=== PATIENT | male | born 1955 | race Caucasian/White ===

== ENCOUNTER 2016-07-30 17:51 | Inpatient (IN) | payer BC, OTHER ==
[~2016-07-30] VITALS: Ht 177.8 cm; Wt 51.8 kg
[~2016-07-30 17:51] MED LIST: ALBU1AER9 INH; CARV6.252 PO; LOSA1TAB PO; MULT-506 PO; RIVA1TAB4 PO; SIMV40TA4 PO; SOTA80TA55 PO
[2016-07-30] MEDS ORDERED: ALBUT/IPRATROP 3MG/0.5MG NEB 3 ML VIAL INH STA ×2 (18:20→19:19)
[2016-07-30] MEDS ORDERED: ADVIN50/60 INH (18:33)
[2016-07-30] MEDS ORDERED: IPRASOL4 INH (18:33)
[2016-07-30] MEDS ORDERED: PRED10TA PO (18:33)
[2016-07-30] MEDS ORDERED: AZIT250T PO (18:33)
[2016-07-30] MEDS ORDERED: ACLI1AER3 PO (18:33)
[2016-07-30] MEDS ORDERED: MULT-506 PO (18:33)
[2016-07-30 18:40] LABS: BASO % 0.1 %; BASO ABS # 0.01 K/uL (0-0.2); COMPLETE YES; HEMATOCRIT 42.7 % (42-52); IG% 0.3 %; LYMPH % 3.5 %; LYMPH ABS # 0.68 K/uL (1.2-3.4); MEAN CORPUSCULAR HEMOGLOBIN 30.2 pg (25-34); MEAN CORPUSCULAR HGB CONC 30.2 g/dl (32-36); MONO % 3.9 %; NEUT % 92.2 %; PLATELET COUNT 270 K/uL (130-400); RED BLOOD COUNT 4.27 M/uL (4.7-6.1); WHITE BLOOD COUNT 19.45 K/uL (4.8-10.8)
[2016-07-30 18:47] LABS: BLOOD UREA NITROGEN 11 mg/dl (7-18); BUN/CREATININE RATIO 18.5 (10-20); CALCIUM 9.2 mg/dl (8.5-10.1); CHLORIDE 85 mmol/L (98-107); CREATININE 0.59 mg/dl (0.60-1.40); GLUCOSE 112 mg/dl (70-99); POTASSIUM 4.9 mmol/L (3.5-5.1); SODIUM 134 mmol/L (136-145)
[2016-07-30 18:50] LABS: INR 1.3 (0.9-1.1); PARTIAL THROMBOPLASTIN RATIO 1.2; PROTHROMBIN TIME (PATIENT) 13.9 SECONDS (9.0-12.0)
[2016-07-30 18:51] LABS: CKMB/CK RATIO 5.8 (0-3.0)
[2016-07-30 19:02] LABS: MAGNESIUM 2.2 mg/dl (1.8-2.4)
[2016-07-30] MEDS ORDERED: PIPERACILLIN/TAZOBACTAM 4.5 GM/100ML D5W IV STA (19:15)
--- NOTE | 2016-07-30 19:15 | DIAGNOSTIC IMAGING REPORT ---
CT HEAD WITHOUT CONTRAST (CT) CLINICAL HISTORY: Stroke COMPARISON STUDY: No previous studies for comparison. TECHNIQUE: Axial CT of the brain is performed from the vertex to the skull base. IV contrast was not administered for this examination. CT DOSE: 1074.96 mGy.cm FINDINGS: There is mild motion artifact. There is a 6 mm extra-axial calcification within the right anterior middle cranial fossa abutting the sphenoid wing. This likely represents either a calcified meningioma or enostosis. There is no CT evidence of acute cortical infarction. There is no midline shift. There is no acute hemorrhage. There are minimal white matter hypodensities likely on a small vessel basis. There is no evidence of pathologic ventricular dilatation. There is no evidence of acute sinusitis IMPRESSION: Study compromised by motion artifact. No acute intracranial findings. Electronically signed by: Vincenzo Lazo M.D. 07/30/2016 7:14 PM Dictated Date/Time: 07/30/2016 7:11 PM
--- NOTE | 2016-07-30 19:24 | EMERGENCY ROOM VISIT NOTE ---
History Report prepared by Elizabeth: Edy Irving Under the Supervision of: Dr. Vamsi Rousseau M.D. First contact with patient: 18:15 Chief Complaint: NEURO SYMPTOMS Stated Complaint: LETHARGIC History of Present Illness The patient is a 61 year old male who presents to the Emergency Room by EMS with complaints of resolved left sided weakness beginning today. He has a history of stroke and has a pacemaker in place. He was reported to have had left sided weakness which appears to have improved upon arrival. Per nursing staff, the patient wears supplemental oxygen at home, but was found on scene without his oxygen in place. His oxygen saturation was found to be 82% on scene. The patient states that he currently feels very short of breath, but notes that he always feels short of breath. He states that he has felt sick over the last few days, but is unsure how he felt sick. He is unsure if he has any pain. HPI limited secondary to mental status. Source of History: patient, nursing staff History Limited By: other (mental status) Onset: Today Position: other (left side) Quality: other (weakness) Timing: resolved Associated Symptoms: + SOB Review of Systems Unobtainable secondary to mental status. Past Medical & Surgical Medical Problems: (1) CVA (cerebral vascular accident) (2) Implantation of cardiac pacemaker (3) Respiratory failure, acute Family History Unobtainable secondary to mental status. Social History Smoking Status: Current Every Day Smoker Current/Historical Medications Scheduled Aclidinium [place] (Tudorza Pressair), 1 DOSE PO DIRECTED Azithromycin (Zithromax), 250 MG PO Q2D Carvedilol (Coreg), 6.25 MG PO BID Fluticasone Prop/Salmeterol (Advair Diskus 500/50 60 Dose), 1 PUFF INH BID Ipratropium-Albuterol (Duoneb), 1 TREATMENT INH Q4H Losartan Potassium (Cozaar), 25 MG PO DAILY Multivitamin (Multivitamin), 1 TAB PO DAILY Prednisone (Prednisone), 10 MG PO DAILY Rivaroxaban (Xarelto), 20 MG PO DAILY Simvastatin (Zocor), 40 MG PO HS Sotalol Hcl (Betapace), 80 MG PO BID Scheduled PRN Albuterol (Proair Hfa), 1-2 PUFFS INH QID PRN Allergies Coded Allergies: No Known Drug Allergy (Verified Allergy, Unknown, none, 07/30/16) Roflumilast (Unverified Allergy, Unknown, unknown, 07/30/16) Physical Exam Vital Signs Date Time Temp Pulse Resp B/P (MAP) Pulse Ox O2 Delivery O2 Flow Rate FiO2 07/30/16 22:02 79 26 117/84 94 Nasal Cannula 45 BiPAP 07/30/16 21:48 89 Nasal Cannula 3.0 07/30/16 21:30 75 26 112/83 97 BiPAP 07/30/16 20:47 78 28 108/66 90 Nasal Cannula 1.0 07/30/16 20:25 59 95 45 07/30/16 19:57 82 28 100/70 97 Nasal Cannula 4.0 07/30/16 19:10 81 20 108/72 97 Nasal Cannula 4.0 07/30/16 18:20 97 Nasal Cannula 4.0 07/30/16 18:10 88 07/30/16 18:07 36.4 88 32 133/82 97 Nasal Cannula 5.0 07/30/16 18:05 97 Nasal Cannula 4.0 Physical Exam GENERAL: Patient is in no acute distress. HEENT: No acute trauma, normocephalic atraumatic, mucous membranes dry, no nasal congestion, no scleral icterus. NECK: No stridor, no adenopathy, no meningismus, trachea is midline. LUNGS: Wheezing and rhonchi bilaterally. Increased respiratory rate. Breath sounds equal. HEART: Cannot hear cardiac tones secondary to lung-sounds. ABDOMEN: Soft, nontender, bowel sounds positive, no hernias, no peritonitis. EXTREMITIES: No cyanosis or edema, full range of motion of all the joints without pain or difficulty, no signs for acute trauma. NEUROLOGIC: Confused but moving all extremities. No focal motor deficits. Awake and alert. SKIN: Cool to the touch with cyanosis of the posterior elbows and anterior knees. Medical Decision & Procedures ER Provider Diagnostic Interpretation: Radiology results as stated below per my review and radiologist interpretation: CT HEAD WITHOUT CONTRAST (CT) There is a 6 mm extra-axial calcification within the right anterior middle cranial fossa abutting the sphenoid wing. This likely represents either a calcified meningioma or enostosis. There is no CT evidence of acute cortical infarction. There is no midline shift. There is no acute hemorrhage. There are minimal white matter hypodensities likely on a small vessel basis. There is no evidence of pathologic ventricular dilatation. There is no evidence of acute sinusitis IMPRESSION: Study compromised by motion artifact. No acute intracranial findings. Electronically signed by: Vincenzo Lazo M.D. CHEST ONE VIEW PORTABLE FINDINGS: The heart is normal in size. There is a left subclavian dual-chamber central venous pacemaker present. There is pulmonary emphysema. There are left lower lobe airspace opacities suspicious for pneumonia. There are also equivocal right perihilar airspace opacities. There is minor blunting of the lateral costophrenic angles. Air beneath the hemidiaphragms, is likely secondary to colonic interposition.[ IMPRESSION: 1. Emphysema 2. Left lower lobe airspace opacity suspicious for pneumonia. Clinical and radiographic follow-up is recommended. Electronically signed by: Vincenzo Lazo M.D. Laboratory Results 07/30/16 16:49 Red Blood Count 4.27, Mean Corpuscular Volume 100.0, Mean Corpuscular Hemoglobin 30.2, Mean Corpuscular Hemoglobin Concent 30.2, Mean Platelet Volume 10.0, Neutrophils (%) (Auto) 92.2, Lymphocytes (%) (Auto) 3.5, Monocytes (%) ( Auto) 3.9, Eosinophils (%) (Auto) 0.0, Basophils (%) (Auto) 0.1, Neutrophils # ( Auto) 17.95, Lymphocytes # (Auto) 0.68, Monocytes # (Auto) 0.76, Eosinophils # ( Auto) 0.00, Basophils # (Auto) 0.01 07/30/16 16:49 Test 07/30/16 16:49 07/30/16 18:38 07/30/16 18:46 07/30/16 18:49 White Blood Count 19.45 K/uL (4.8-10.8) Red Blood Count 4.27 M/uL (4.7-6.1) Hemoglobin 12.9 g/dL (14.0-18.0) Hematocrit 42.7 % (42-52) Mean Corpuscular Volume 100.0 fL (80-100) Mean Corpuscular Hemoglobin 30.2 pg (25-34) Mean Corpuscular Hemoglobin Concent 30.2 g/dl (32-36) Platelet Count 270 K/uL (130-400) Mean Platelet Volume 10.0 fL (7.4-10.4) Neutrophils (%) (Auto) 92.2 % Lymphocytes (%) (Auto) 3.5 % Monocytes (%) (Auto) 3.9 % Eosinophils (%) (Auto) 0.0 % Basophils (%) (Auto) 0.1 % Neutrophils # (Auto) 17.95 K/uL (1.4-6.5) Lymphocytes # (Auto) 0.68 K/uL (1.2-3.4) Monocytes # (Auto) 0.76 K/uL (0.11-0.59) Eosinophils # (Auto) 0.00 K/uL (0-0.5) Basophils # (Auto) 0.01 K/uL (0-0.2) RDW Standard Deviation 44.8 fL (36.4-46.3) RDW Coefficient of Variation 12.4 % (11.5-14.5) Immature Granulocyte % (Auto) 0.3 % Immature Granulocyte # (Auto) 0.05 K/uL (0.00-0.02) Prothrombin Time 13.9 SECONDS (9.0-12.0) Prothromb Time International Ratio 1.3 (0.9-1.1) Activated Partial Thromboplast Time 30.8 SECONDS (21.0-31.0) Partial Thromboplastin Ratio 1.2 Anion Gap mmol/L (3-11) Est Creatinine Clear Calc Drug Dose 97.8 ml/min Estimated GFR () 126.6 Estimated GFR (Non- 109.3 BUN/Creatinine Ratio 18.5 (10-20) Calcium Level 9.2 mg/dl (8.5-10.1) Magnesium Level 2.2 mg/dl (1.8-2.4) Total Bilirubin 1.0 mg/dl (0.2-1) Direct Bilirubin 0.2 mg/dl (0-0.2) Aspartate Amino Transf (AST/SGOT) 29 U/L (15-37) Alanine Aminotransferase (ALT/SGPT) 26 U/L (12-78) Alkaline Phosphatase 82 U/L (45-117) Total Creatine Kinase 124 U/L (39-308) Creatine Kinase MB 7.2 ng/ml (0.5-3.6) Creatine Kinase MB Ratio 5.8 (0-3.0) Troponin I 0.034 ng/ml (0-0.045) Total Protein 7.1 gm/dl (6.4-8.2) Albumin 3.3 gm/dl (3.4-5.0) Bedside Glucose 130 mg/dl (70-99) Ammonia 26.0 umol/L (11-32) Thyroid Stimulating Hormone (TSH) 0.294 uIu/ml (0.300-4.500) Free Thyroxine 1.05 ng/dl (0.80-1.60) Test 07/30/16 18:54 07/30/16 18:59 07/30/16 20:10 07/30/16 20:50 Bedside Lactic Acid Venous 1.30 mmol/L (0.90-1.70) Ethyl Alcohol mg/dL < 3.0 mg/dl (0-3) Arterial Blood pH 7.27 (7.35-7.45) Arterial Blood Partial Pressure CO2 103 mmHg (35-46) Arterial Blood Partial Pressure O2 97 mm/Hg (80-95) Arterial Blood HCO3 46 mmol/L (19-24) Arterial Blood Oxygen Saturation 96.2 % (90-95) Arterial Blood Base Excess 14.9 mEq/L (-9-1.8) Arterial Blood Gas Delivery 4 L Jarrod Test POS (POS) Urine Color DK YELLOW Urine Appearance CLEAR (CLEAR) Urine pH 5.5 (4.5-7.5) Urine Specific [place] 1.035 (1.000-1.030) Urine Protein 1+ (NEG) Urine Glucose (UA) NEG (NEG) Urine Ketones TRACE (NEG) Urine Occult Blood NEG (NEG) Urine Nitrite NEG (NEG) Urine Bilirubin NEG (NEG) Urine Urobilinogen NEG (NEG) Urine Leukocyte Esterase NEG (NEG) Urine WBC (Auto) 1-5 /hpf (0-5) Urine RBC (Auto) 5-10 /hpf (0-4) Urine Hyaline Casts (Auto) 5-10 /lpf (0-5) Urine Epithelial Cells (Auto) 20-30 /lpf (0-5) Urine Bacteria (Auto) NEG (NEG) Urine Opiates Screen NEG (NEG) Urine Methadone, Qualitative NEG (NEG) Urine Barbiturates NEG (NEG) Urine Phencyclidine (PCP) Level NEG (NEG) Ur Amphetamine/Methamphetamine NEG (NEG) MDMA (Ecstasy) Screen NEG (NEG) Urine Benzodiazepines Screen NEG (NEG) Urine Cocaine Metabolite NEG (NEG) Urine Marijuana (THC) NEG (NEG) .Laboratory results reviewed by me. Medications Administered Medications (Trade) Dose Ordered Sig/Khoi Route Start Time Stop Time Status Last Admin Dose Admin Albuterol/ Ipratropium (Duoneb) 3 ml NOW STAT INH 07/30/16 18:20 07/30/16 18:24 DC 07/30/16 18:26 3 ML Piperacillin Sod/ Tazobactam Sod (Zosyn Iv) 4.5 gm NOW STAT IV 07/30/16 19:15 07/30/16 19:17 DC 07/30/16 19:23 4.5 GM Albuterol/ Ipratropium (Duoneb) 3 ml NOW STAT INH 07/30/16 19:19 07/30/16 19:20 DC 07/30/16 19:24 3 ML Methylprednisolone Sodium Succinate (Solu-Medrol IV) 80 mg NOW STAT IV 07/30/16 20:03 07/30/16 20:04 DC 07/30/16 20:18 80 MG Sodium Chloride 500 ml @ 999 mls/hr Q31M STAT IV 07/30/16 20:08 07/30/16 20:38 DC 07/30/16 20:19 999 MLS/HR ECG Indication: SOB/dyspnea Rate (beats per minute): 88 Rhythm: normal sinus Findings: no acute ischemic change, no ectopy, other (Somewhat short MT ) ED Course 1816: The patient was evaluated in room A10. A complete history and physical exam was performed. 1819: Ordered DuoNeb 3 mL INH. 1914: Ordered Zosyn 4.5 gm IV. 1918: Ordered DuoNeb 3 mL INH. 1958: Upon reexamination the patient is resting comfortably. He looks much better. His family has arrived and are at bedside. I discussed results and treatment plan with the patient and his family. They verbalize agreement and understanding. The patient will be evaluated for further management. 2002: Ordered Solu-Medrol 80 mg IV. 2007: Ordered Sodium Chloride 500 ml @ 999 mls/hr IV. Medical Decision The patient is a 61 year old male who presents to the ED with complaints of resolved left sided weakness and SOB. Differential diagnoses considered include sepsis, cyanosis, stroke, ICH, [place], pneumonia, UTI, anemia, electrolyte imbalance, and exacerbation of COPD. Blood Pressure Screening: Patient was found to have normal blood pressure on screening and does not require follow-up. Medication Reconciliation: I attest that I have personally reviewed the patient' s current medication list. There is a significant leukocytosis of 19,000, this is consistent with infection. No worrisome anemia. Renal panel testing shows a high CO2 consistent with CO2 retention. There was no kidney failure. No hepatitis. Lactic acid level was not elevated making severe sepsis less likely. EKG shows a sinus rhythm, no acute ischemia. Cardiac enzyme testing times one is not consistent with acute cardiac injury. Blood cultures are pending. Brain CT shows no acute bleed or mass effect. On exam, there were no focal neurologic deficits however, the patient did demonstrate some confusion. Chest x-ray shows COPD with a left sided pneumonia, no pneumothorax or heart failure. There was no coagulopathy. ABG demonstrates acute on chronic respiratory acidosis. The PO2 was adequate. The patient was given 2 DuoNeb's, he received IV saline, IV Zosyn. He was given IV Solu-Medrol. He improved with this treatment, he felt better, his vital signs improved. The cyanosis of his knees and elbows resolved. I did attempt BiPAP however, the patient could not tolerate this mask and was placed back on nasal cannula supplementation. His O2 supplementation was to be regulated to keep his saturations around 90-92% to encourage an increased respiratory rate and to help with the respiratory acidosis. I do think the patient deserves admission/observation. I suspect his confusion and change in mental status was secondary to the infection and to hypoxia. The patient has made significant improvement while here in the emergency room. Further care is required. I talked to the case mgr, I talked to the family. The on-call hospitalist was consulted. Consults Time Called: 1955 Consulting Physician: Dr. Sulma Peralta Returned Call: [phone] Discussed the patient's case. The patient will be evaluated for further management. Impression Primary Impression: Change in mental status Additional Impressions: Pneumonia Respiratory acidosis Critical Care I have personally spent greater than 30 minutes of critical care time in the direct management of this patient. This includes bedside care, interpretation of diagnostic studies and testing, discussion with consultants, the patient, and family members, and other required patient management activities. This 30 minutes is in excess of all separately billable procedures. Scribe Attestation The scribe's documentation has been prepared under my direction and personally reviewed by me in its entirety. I confirm that the note above accurately reflects all work, treatment, procedures, and medical decision making performed by me. Departure Information Dispostion Being Evaluated By Hospitalist Referrals Fabian Callaway M.D. (PCP) Patient Instructions My [facility] Problem Qualifiers
[2016-07-30 19:33] LABS: CARBON DIOXIDE 48 mmol/L (21-32)
--- NOTE | 2016-07-30 20:01 | DIAGNOSTIC IMAGING REPORT ---
CHEST ONE VIEW PORTABLE CLINICAL HISTORY: Stroke J COMPARISON STUDY: No previous studies for comparison. FINDINGS: The heart is normal in size. There is a left subclavian dual-chamber central venous pacemaker present. There is pulmonary emphysema. There are left lower lobe airspace opacities suspicious for pneumonia. There are also equivocal right perihilar airspace opacities. There is minor blunting of the lateral costophrenic angles. Air beneath the hemidiaphragms, is likely secondary to colonic interposition.[ IMPRESSION: 1. Emphysema 2. Left lower lobe airspace opacity suspicious for pneumonia. Clinical and radiographic follow-up is recommended. Electronically signed by: Vincenzo Lazo M.D. 07/30/2016 8:00 PM Dictated Date/Time: 07/30/2016 7:59 PM
[2016-07-30] MEDS ORDERED: METHYLPREDNISOLONE 125 MG VIAL IV STA (20:03)
[2016-07-30] MEDS ORDERED: SODIUM CHLORIDE 0.9% 500ML 500 ML IV STA (20:08)
[2016-07-30] MEDS ORDERED: METHYLPREDNISOLONE IV 40 MG in SYRINGE 0 ML IV ONE (20:15)
[2016-07-30] MEDS ORDERED: SODIUM CHLORIDE 0.9% 1000ML 1,000 ML IV SCH (20:15)
[2016-07-30 20:22] LABS: ARTERIAL BLD GAS O2 SATURATION 96.2 % (90-95); ARTERIAL BLOOD GAS BASE EXCESS 14.9 mEq/L (-9-1.8); ARTERIAL BLOOD GAS HCO3 46 mmol/L (19-24); ARTERIAL BLOOD GAS PO2 97 mm/Hg (80-95); ARTERIAL BLOOD GAS pH 7.27 (7.35-7.45)
[2016-07-30 20:23] LABS: ALLEN TEST POS (POS); O2 ADMINISTRATION 4 L
[2016-07-30 20:25] VITALS: PULSE 59; O2SAT 95
[2016-07-30 21:03] LABS: URINE APPEARANCE CLEAR (CLEAR); URINE COLOR DK YELLOW; URINE EPITHELIAL CELL AUTO 20-30 /lpf (0-5); URINE NITRITE NEG (NEG); URINE PH 5.5 (4.5-7.5); URINE SPECIFIC GRAVITY 1.035 (1.000-1.030); UROBILINOGEN NEG (NEG); ZZUR CULT IF INDIC CLEAN CATCH NO
[2016-07-30 21:04] LABS: MANUAL MICROSCOPIC REQUIRED? NO; REVIEW REQ? NO; URINE BILIRUBIN NEG (NEG)
[2016-07-30 21:22] LABS: BENZODIAZEPINE, URINE NEG (NEG); COCAINE,URINE NEG (NEG); PHENCYCLIDINE, URINE NEG (NEG)
[2016-07-30] MEDS ORDERED: DOXYCYCLINE IV 100 MG in DEXTROSE 5% 100ML 100 ML IV ONE (22:42)
[2016-07-30] MEDS ORDERED: ACETAMINOPHEN 325 MG TAB PO PRN (22:45)
[2016-07-30] MEDS ORDERED: NITROGLYCERIN 0.4 MG SL PER TAB CHARGE SL PRN (22:45)
[2016-07-30] MEDS ORDERED: LEVALBUTEROL/IPRATROPIUM NEB INH PRN (22:45)
[2016-07-30] MEDS ORDERED: ONDANSETRON INJ 2 MG/ML 2 ML VIAL IV PRN (22:45)
[2016-07-30] MEDS ORDERED: TRAMADOL HCL 50 MG TAB PO PRN (22:45)
[2016-07-30] MEDS ORDERED: SODIUM CHLORIDE 0.9% 500ML 500 ML IV ONE (23:00)
[2016-07-30 23:15] VITALS: BP 110/72; PULSE 79; TEMP 34.7; O2SAT 94; BMI 15.7
[2016-07-30 23:37] LABS: HEMATOCRIT 41.2 % (42-52)
[2016-07-30 23:39] LABS: ARTERIAL BLD GAS O2 SATURATION 92.2 % (90-95); ARTERIAL BLOOD GAS HCO3 45 mmol/L (19-24); ARTERIAL BLOOD GAS PO2 73 mm/Hg (80-95)
[2016-07-30 23:43] VITALS: PULSE 78; O2SAT 95
[2016-07-30 23:45] LABS: ALLEN TEST POS (POS); ARTERIAL BLOOD GAS pH 7.18 (7.35-7.45)
[2016-07-30 23:52] LABS: O2 ADMINISTRATION 45%
[2016-07-31] VITALS (15 sets, daily range): BP systolic 85–127; BP diastolic 48–84; PULSE 74–119; TEMP 36–36.9; O2SAT 90–100
[2016-07-31 00:05] LABS: BUN/CREATININE RATIO 24.1 (10-20); CALCIUM 8.8 mg/dl (8.5-10.1); CREATININE 0.55 mg/dl (0.60-1.40); FERRITIN 285.4 ng/ml (8.0-388.0); POTASSIUM 5.2 mmol/L (3.5-5.1)
[2016-07-31] MEDS ORDERED: SOTALOL HCL 80 MG TAB PO ONE (00:19)
[2016-07-31] MEDS ORDERED: INSULIN GLARGINE SOLOSTAR 100 UNITS/ML 3 ML PEN SC STA (00:19)
[2016-07-31 01:12] LABS: ALLEN TEST POS (POS); ARTERIAL BLD GAS O2 SATURATION 92.6 % (90-95); ARTERIAL BLOOD GAS BASE EXCESS 12.8 mEq/L (-9-1.8); ARTERIAL BLOOD GAS HCO3 43 mmol/L (19-24); ARTERIAL BLOOD GAS PO2 68 mm/Hg (80-95); O2 ADMINISTRATION 45%
[2016-07-31] MEDS: DOXYCYCLINE IV 100 MG in DEXTROSE 5% 100ML 100 ML IV SCH ×2 (01:18→12:55)
[2016-07-31] MEDS ORDERED: IPRATROPIUM BROMIDE NEB SOLN 0.02% 2.5 ML VIAL INH PRN (01:30)
[2016-07-31] MEDS ORDERED: LEVALBUTEROL 1.25MG/0.5ML NEB INH PRN (01:30)
[2016-07-31] MEDS: PIPERACILL/TAZOBAC IV 3.375 GM in DEXTROSE 5% 100ML IV SCH ×3 (01:49→16:55)
[2016-07-31] MEDS: LEVALBUTEROL 1.25MG/0.5ML NEB INH SCH ×4 (02:16→19:40)
[2016-07-31] MEDS: IPRATROPIUM BROMIDE NEB SOLN 0.02% 2.5 ML VIAL INH SCH ×4 (02:16→19:40)
[2016-07-31] MEDS ORDERED: LEVALBUTEROL/IPRATROPIUM NEB INH SCH (03:00)
--- NOTE | 2016-07-31 05:18 | HISTORY & PHYSICAL EXAMINATION ---
DATE OF ADMISSION: 07/30/2016 PRIMARY CARE PHYSICIAN: Dr. Callaway CHIEF COMPLAINT: Shortness of breath. HISTORY OF PRESENT ILLNESS: History was obtained from patient, family, and records. Limited hx obtained from px 2 to secondary to resp distress and some confusion. 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 Last night, the patient was noted by to worsening shortness of breath and worsening cough symptoms. Patient was more weak than usual this morning and confused. He was brought to the Emergency Room; given Zosyn, Solu-Medrol and breathing treatments for COPD exacerbation. Started on BiPAP. MEDICAL HISTORY: As above. SURGERIES: ICD placement, vasectomy and shoulder surgery. HOME MEDICATIONS: Include; Tudorza, ProAir, Zithromax, Coreg, Advair Diskus, DuoNeb, losartan, multivitamins, prednisone, Xarelto, Zocor and Betapace. ALLERGIES: Romifulast FAMILY HISTORY: Heart disease. PERSONAL AND SOCIAL HISTORY: Past tobacco abuse. No chronic intake of alcoholic beverages. REVIEW OF SYSTEMS: Could not be fully obtained. PHYSICAL EXAMINATION: VITAL SIGNS: Blood pressure was noted to be 130/82, pulse rate 88, RR 32, temperature 36.4 and sats 97 on five liters. GENERAL: Noted to be in respiratory distress, somewhat disoriented and hard of hearing. SKIN: Pallor. HEENT: Pale palpebral conjunctivae. Dry mucosa. BIPAP mask NECK: No JVD. supple CHEST: Decreased BS, expiratory wheezes. HEART: Regular rate and rhythm. ABDOMEN: Some distention. NT RECTAL px refusing for now EXTREMITIES: Minimal LE edema. No tenderness. NEUROLOGIC: No gross focality except for old left lower extremity weakness. LABORATORIES: Hemoglobin was noted to be 12.9, hematocrit 40.7 white cell count 19.4 and platelets 270. Sodium 134, potassium 4.9, chloride 85, CO2 48 BUN 11, creatinine 0.5 and glucose 112. Troponin was 0.086 ABG pH 7.27, pCO2 103, pO2 97 and O2 sats [address] of the head; no acute pathology except for a 6 mm calcification right ACF likely meningioma. Chest x-ray: emphysema, LLL pneumonia. EKG as per my interpretation : 90, normal sinus rhythm, left atrial enlargement,ST depression on the inferior leads ASSESSMENT: 1. Acute on chronic hypoxemic, hypercapnic respiratory failure secondary to steroid dependent chronic obstructive pulmonary disease exacerbation secondary to community-acquired pneumonia possible aspiration, px known to be at risk for aspiration post CVA no sepsis 2. resp acidosis, abn trop 2 to above 3. chronic systolic heart failure secondary to non-ischemic cardiomyopathy (EF 40% TTE 2010) sp ICD patient on the dry side. 4. PAF, px NSR, on Xarelto 5. history of cerebrovascular accident. 6. Hypertension stable 7. past tobacco abuse 8. Anemia, hemoglobin drop from baseline ro occult GI bleed 9. malnutrition (low BMI) PLAN: PCU BiPAP. Follow ABG CS, Doxycycline, Zosyn nebs, steroids. Pulmonary consult resp failure, COPD exacerbation ff trop, 2D echo for shortness of breath RE sob, troponin bump anemia [place] Nutrition consult RE low BMI Deep venous thrombosis prophylaxis, Xarelto may need to hold if px found to have occult GI bleed. DNR. Total critical care time was 50 minutes. MTDD
[2016-07-31 06:09] LABS: HEMATOCRIT 38.9 % (42-52); MEAN CORPUSCULAR HGB CONC 30.6 g/dl (32-36); MEAN PLATELET VOLUME 9.3 fL (7.4-10.4); PLATELET COUNT 189 K/uL (130-400); RED BLOOD COUNT 3.97 M/uL (4.7-6.1)
[2016-07-31 06:22] LABS: BASO ABS # 0.01 K/uL (0-0.2); COMPLETE YES; IG% 0.4 %; LYMPH % 2.5 %; LYMPH ABS # 0.91 K/uL (1.2-3.4); MONO % 2.1 %
[2016-07-31 06:55] LABS: BUN/CREATININE RATIO 24.3 (10-20); CALCIUM 8.8 mg/dl (8.5-10.1); CREATININE 0.64 mg/dl (0.60-1.40); POTASSIUM 5.1 mmol/L (3.5-5.1)
[2016-07-31] MEDS ORDERED: CARVEDILOL 6.25 MG TAB PO SCH ×2 (09:00→21:00)
[2016-07-31] MEDS ORDERED: LOSARTAN POTASSIUM 25 MG TAB PO SCH (09:00)
[2016-07-31] MEDS: SOTALOL HCL 80 MG TAB PO SCH ×2 (09:00→18:51)
[2016-07-31] MEDS ORDERED: PIPERACILL/TAZOBAC CONSULT ACTIVE PRN (09:00)
--- NOTE | 2016-07-31 10:05 | ECHOCARDIOGRAM REPORT ---
*NOTICE TO RECEIVING [employer] This information is strictly Confidential and protected under [place] law. [place] law prohibits you from making any further disclosure of this information unless further disclosure is expressly permitted by the written consent of the person to whom it pertains or is authorized by law. A general authorization for the release of medical or other information is not sufficient for this purpose. Hospital accepts no responsibility if the information is made available to any other person, INCLUDING THE PATIENT. Interpretation Summary * Name: TORI GREY Study Date: 07/31/2016 07:23 AM BP: 118/84 mmHg * Patient Location: C.2T\S\S235\S\1 HR: 77 * : 1955 (M/d/yyyy) Gender: Male Height: 62 in * Age: 61 yrs Ethnicity: [place] Weight: 115 lb * Ordering Physician: Ford Ozuna * Referring Physician: Self, Referred * Performed By: Paulette Gutierrez RCS * * Reason For Study: SOB * BSA: 1.5 m2 * -- Conclusions -- * The study was technically difficult. * The left ventricle is normal in size. * There is normal left ventricular wall thickness. * No regional wall motion abnormalities noted. * No hemodynamically significant valvular aortic stenosis. * The right ventricle is mildly dilated. * There is a pacemaker lead in the right ventricle. * There is trace tricuspid regurgitation. * The inferior vena cava is moderately dilated. * Right ventricular systolic pressure is elevated at 50-60mmHg. Procedure Details * A complete two-dimensional transthoracic echocardiogram was performed (2D, M-mode, Doppler and color flow Doppler). * The study was technically difficult. * There were technical limitations due to patient'spoor positioning Left Ventricle * The left ventricle is normal in size. * There is normal left ventricular wall thickness. * Ejection Fraction = 55-60%. * Left ventricular systolic function is normal. * No regional wall motion abnormalities noted. Right Ventricle * There is a pacemaker lead in the right ventricle. * The right ventricle is mildly dilated. Atria * The left atrial size is normal. * Right atrial size is normal. * No ASD detected; PFO is not assessed. Mitral Valve * The mitral valve is grossly normal. * There is no mitral valve stenosis. * There is trace mitral regurgitation. Tricuspid Valve * The tricuspid valve anatomy is normal. * There is no tricuspid stenosis. * There is trace tricuspid regurgitation. * Right ventricular systolic pressure is elevated at 50-60mmHg. Aortic Valve * The aortic valve is trileaflet. * No hemodynamically significant valvular aortic stenosis. * No aortic regurgitation is present. Pulmonic Valve * The pulmonic valve is not well visualized. Great Vessels * The aortic root is normal size. Pericardium/Pleural * There is no pericardial effusion. Great Vessels * The inferior vena cava is moderately dilated. MMode 2D Measurements and Calculations IVSd 0.76 cm IVSs 1.0 cm LVIDd 3.9 cm LVIDs 2.9 cm LVPWd 1.1 cm LVPWs 0.98 cm IVS/LVPW 0.72 FS 26.2 % EDV(Teich) 66.6 ml ESV(Teich) 32.0 ml EF(Teich) 52.0 % EDV(cubed) 60.2 ml ESV(cubed) 24.2 ml EF(cubed) 59.8 % % IVS thick 38.3 % % LVPW thick -7.57 % LV mass(C)d 107.3 grams LV mass(C)dI 71.0 grams/m\S\2 LV mass(C)s 79.3 grams LV mass(C)sI 52.5 grams/m\S\2 SV(Teich) 34.7 ml SI(Teich) 23.0 ml/m\S\2 SV(cubed) 36.0 ml SI(cubed) 23.8 ml/m\S\2 Ao root diam 2.9 cm Ao root area 6.7 cm\S\2 LA dimension 2.8 cm LA/Ao 0.97 LVOT diam 2.0 cm LVOT area 3.0 cm\S\2 LVAd ap4 21.9 cm\S\2 LVLd ap4 6.4 cm EDV(MOD-sp4) 63.7 ml EDV(sp4-el) 63.7 ml LVAs ap4 13.2 cm\S\2 LVLs ap4 5.0 cm ESV(MOD-sp4) 28.6 ml ESV(sp4-el) 29.5 ml EF(MOD-sp4) 55.1 % EF(sp4-el) 53.8 % SV(MOD-sp4) 35.1 ml SI(MOD-sp4) 23.3 ml/m\S\2 SV(sp4-el) 34.3 ml SI(sp4-el) 22.7 ml/m\S\2 Doppler Measurements and Calculations MV E max angela 46.4 cm/sec MV A max angela 57.7 cm/sec MV E/A 0.80 MV dec time 0.22 sec Ao V2 max 106.1 cm/sec Ao max PG 4.5 mmHg Ao max PG (full) 1.6 mmHg MAGGY(V,A) 2.4 cm\S\2 MAGGY(V,D) 2.4 cm\S\2 LV V1 max PG 2.9 mmHg LV V1 max 85.2 cm/sec PA V2 max 93.0 cm/sec PA max PG 3.5 mmHg TR max angela 338.3 cm/sec
[2016-07-31] MEDS ORDERED: COUGH DROP (SUGAR FREE) LOZ 24 LOZ/1 BOX ONE (10:23)
[2016-07-31] MEDS: MULTIVITAMIN TAB PO SCH (10:25)
[2016-07-31] MEDS ORDERED: COUGH DROP (SUGAR FREE) LOZ 24 LOZ/1 BOX PO PRN (10:30)
[2016-07-31] MEDS ORDERED: NURSING VERBAL MED ORDER ONE (10:30)
[2016-07-31 10:49] LABS: ALLEN TEST POS (POS); ARTERIAL BLD GAS O2 SATURATION 95.1 % (90-95); ARTERIAL BLOOD GAS BASE EXCESS 12.9 mEq/L (-9-1.8); ARTERIAL BLOOD GAS HCO3 43 mmol/L (19-24); ARTERIAL BLOOD GAS PO2 85 mm/Hg (80-95); ARTERIAL BLOOD GAS pH 7.29 (7.35-7.45); O2 ADMINISTRATION 4 L
--- NOTE | 2016-07-31 16:30 | Progress Note ---
Internal Med Progress Note Date of Service: Jul 31, 2016. Provider Documentation: SUBJECTIVE: resting comfortably says he is feeling better than yesterday but still has cough afebrile seems confused OBJECTIVE: Vital Signs-as noted below Exam: General-alert and oriented x 1 . ENT-Normal hearing Neck-no neck masses Lungs-cta b/l no wheezing or crackles Heart-s1 and s2 heard regular no murmurs Abdomen-soft bowel sounds present nontender no distension Extremities-no edema no erythema Neuro-alert and oriented moves extremities Lab data as noted below. ASSESSMENT & PLAN: 1. Acute on chronic hypoxemic, hypercapnic respiratory failure secondary to steroid dependent chronic obstructive pulmonary disease exacerbation secondary to community-acquired pneumonia possible aspiration, px known to be at risk for aspiration post CVA no sepsis resp acidosis, abn trop 2 to above on iv abx, po steroids, nebs will continue bipap.pulmonary consulted 2. chronic systolic heart failure secondary to non-ischemic cardiomyopathy (EF 40% TTE 2010) sp ICD patient on the dry side. Will monitor. 3. PAF, px NSR, on Xarelto. Coreg and sotalol. Will monitor 4. history of cerebrovascular accident.. On xarelto. 5. Hypertension stable. Will monitor. 6. past tobacco abuse. 7. Anemia, hemoglobin drop from baseline. ro occult GI bleed. 8. malnutrition (low BMI) nutrition consult DVT PROPHYLAXIS on xarelto DISPOSITION to be determined Vital Signs: Date Time Temp Pulse Resp B/P (MAP) Pulse Ox O2 Delivery O2 Flow Rate FiO2 07/31/16 16:00 36.9 81 16 91/60 (70) 100 Nasal Cannula 4.0 07/31/16 16:00 Nasal Cannula 4.0 07/31/16 14:27 82 20 98 Nasal Cannula 4.0 07/31/16 14:00 90 98 07/31/16 12:00 Nasal Cannula 4.0 07/31/16 11:30 36.5 83 20 111/71 (84) 93 Room Air 07/31/16 08:00 BiPAP 35 07/31/16 07:58 36.0 74 20 90/63 (72) 100 Ambu-Bag 07/31/16 07:05 85 95 35 07/31/16 07:05 85 25 95 BiPAP/CPAP 35 07/31/16 04:00 90 BiPAP 3.0 35 07/31/16 03:53 36.4 79 32 118/84 (95) 90 BiPAP 07/31/16 02:17 78 22 92 BiPAP/CPAP 35 07/31/16 02:16 78 92 35 07/30/16 23:43 78 95 35 07/30/16 23:15 34.7 79 33 110/72 BiPAP 07/30/16 23:15 34.7 79 33 110/72 (85) 94 BiPAP 3.0 45 07/30/16 22:32 78 26 118/80 94 BiPAP 07/30/16 22:02 79 26 117/84 94 Nasal Cannula 45 BiPAP 07/30/16 21:48 89 Nasal Cannula 3.0 07/30/16 21:30 75 26 112/83 97 BiPAP 07/30/16 20:47 78 28 108/66 90 Nasal Cannula 1.0 07/30/16 20:25 59 95 45 07/30/16 19:57 82 28 100/70 97 Nasal Cannula 4.0 07/30/16 19:10 81 20 108/72 97 Nasal Cannula 4.0 07/30/16 18:20 97 Nasal Cannula 4.0 07/30/16 18:10 88 07/30/16 18:07 36.4 88 32 133/82 97 Nasal Cannula 5.0 07/30/16 18:05 97 Nasal Cannula 4.0 Lab Results: Results Past 24 Hours Test 07/30/16 18:38 07/30/16 18:46 07/30/16 18:49 07/30/16 18:54 Range/Units Bedside Glucose 130 70-99 mg/dl Ammonia 26.0 11-32 umol/L Thyroid Stimulating Hormone (TSH) 0.294 0.300-4.500 uIu/ml Free Thyroxine 1.05 0.80-1.60 ng/dl Bedside Lactic Acid Venous 1.30 0.90-1.70 mmol/L Test 07/30/16 18:59 07/30/16 20:10 07/30/16 20:50 07/30/16 22:53 Range/Units Ethyl Alcohol mg/dL < 3.0 0-3 mg/dl Arterial Blood pH 7.27 7.35-7.45 Arterial Blood Partial Pressure CO2 103 35-46 mmHg Arterial Blood Partial Pressure O2 97 80-95 mm/Hg Arterial Blood HCO3 46 19-24 mmol/L Arterial Blood Oxygen Saturation 96.2 90-95 % Arterial Blood Base Excess 14.9 -9-1.8 mEq/L Arterial Blood Gas Delivery 4 L Jarrod Test POS POS Urine Color DK YELLOW Urine Appearance CLEAR CLEAR Urine pH 5.5 4.5-7.5 Urine Specific [place] 1.035 1.000-1.030 Urine Protein 1+ NEG Urine Glucose (UA) NEG NEG Urine Ketones TRACE NEG Urine Occult Blood NEG NEG Urine Nitrite NEG NEG Urine Bilirubin NEG NEG Urine Urobilinogen NEG NEG Urine Leukocyte Esterase NEG NEG Urine WBC (Auto) 1-5 0-5 /hpf Urine RBC (Auto) 5-10 0-4 /hpf Urine Hyaline Casts (Auto) 5-10 0-5 /lpf Urine Epithelial Cells (Auto) 20-30 0-5 /lpf Urine Bacteria (Auto) NEG NEG Urine Opiates Screen NEG NEG Urine Methadone, Qualitative NEG NEG Urine Barbiturates NEG NEG Urine Phencyclidine (PCP) Level NEG NEG Ur Amphetamine/Methamphetamine NEG NEG MDMA (Ecstasy) Screen NEG NEG Urine Benzodiazepines Screen NEG NEG Urine Cocaine Metabolite NEG NEG Urine Marijuana (THC) NEG NEG Transferrin % Saturation 20-50 % Test 07/30/16 23:27 07/31/16 01:00 07/31/16 05:30 07/31/16 10:33 Range/Units Hemoglobin 12.8 11.9 14.0-18.0 g/dL Hematocrit 41.2 38.9 42-52 % Absolute Reticulocyte Count 0.05 0.02-0.10 10^6/uL Percent Reticulocyte Count 1.2 0.5-2.0 % Arterial Blood pH 7.18 7.30 7.29 7.35-7.45 Arterial Blood Partial Pressure CO2 123 90 91 35-46 mmHg Arterial Blood Partial Pressure O2 73 68 85 80-95 mm/Hg Arterial Blood HCO3 45 43 43 19-24 mmol/L Arterial Blood Oxygen Saturation 92.2 92.6 95.1 90-95 % Arterial Blood Base Excess 12.0 12.8 12.9 -9-1.8 mEq/L Arterial Blood Gas Delivery 45% 45% 4 L Jarrod Test POS POS POS POS Sodium Level 135 132 136-145 mmol/L Potassium Level 5.2 5.1 3.5-5.1 mmol/L Chloride Level 90 89 98-107 mmol/L Carbon Dioxide Level 40 41 21-32 mmol/L Anion Gap 4.0 2.0 3-11 mmol/L Blood Urea Nitrogen 13 16 7-18 mg/dl Creatinine 0.55 0.64 0.60-1.40 mg/dl Est Creatinine Clear Calc Drug Dose 104.9 84.5 ml/min Estimated GFR () 130.4 122.5 Estimated GFR (Non- 112.5 105.7 BUN/Creatinine Ratio 24.1 24.3 10-20 Random Glucose 130 139 70-99 mg/dl Calcium Level 8.8 8.8 8.5-10.1 mg/dl Iron Level 19 35-175 mcg/dl Total Iron Binding Capacity 283 250-450 mcg/dl Transferrin 171 200-360 mg/dl Transferrin % Saturation 8 20-50 % Ferritin 285.4 8.0-388.0 ng/ml Troponin I 0.086 0.081 0-0.045 ng/ml Vitamin B12 Level 560 211-911 pg/mL Folate 15.80 >5.38 ng/mL Total Triiodothyronine 0.45 0.60-1.81 ng/ml White Blood Count 36.80 4.8-10.8 K/uL Red Blood Count 3.97 4.7-6.1 M/uL Mean Corpuscular Volume 98.0 80-100 fL Mean Corpuscular Hemoglobin 30.0 25-34 pg Mean Corpuscular Hemoglobin Concent 30.6 32-36 g/dl Platelet Count 189 130-400 K/uL Mean Platelet Volume 9.3 7.4-10.4 fL Neutrophils (%) (Auto) 95.0 % Lymphocytes (%) (Auto) 2.5 % Monocytes (%) (Auto) 2.1 % Eosinophils (%) (Auto) 0.0 % Basophils (%) (Auto) 0.0 % Neutrophils # (Auto) 34.95 1.4-6.5 K/uL Lymphocytes # (Auto) 0.91 1.2-3.4 K/uL Monocytes # (Auto) 0.77 0.11-0.59 K/uL Eosinophils # (Auto) 0.00 0-0.5 K/uL Basophils # (Auto) 0.01 0-0.2 K/uL RDW Standard Deviation 43.8 36.4-46.3 fL RDW Coefficient of Variation 12.3 11.5-14.5 % Immature Granulocyte % (Auto) 0.4 % Immature Granulocyte # (Auto) 0.16 0.00-0.02 K/uL Microbiology Results 07/30/16 Blood Culture, Received Pending 07/30/16 Blood Culture, Received Pending 07/31/16 Gram Stain - Final, Resulted 07/31/16 Sputum Culture, Resulted Pending
[2016-07-31] MEDS: RIVAROXABAN 10 MG TAB PO SCH (16:46)
--- NOTE | 2016-07-31 17:22 | Pulmonary Consultation ---
History General Date of Service: Jul 31, 2016. Stated Complaint: Respiratory Failure, Acute HPI The patient is a 61 year old male who presents to [facility] with complaints of Respiratory Failure, Acute. The patient's primary care provider is Fabian Callaway M.D.. Pulmonary: Dr Catrachito Bhatit - [place] - [phone] This patient has end-stage emphysema, on chronic O2 therapy, heart failure, h/o a-fib and CVA, on Xarelto, was admitted yesterday for shortness of breath, altered mental status. per family, he was sick for a day, had a "rough night". In the hospital, was found to have CO2 retention, acute on chronic, required non -invasive bi-level ventilation He improved partially, more awake, but still not able to provide a decent history. Per sons, he was considered for a lung transplant, however, was deemed not a good candidate. Review of Systems Per HPI, other systems reviewed and negative All Other Symptoms All Other Systems: Reviewed and Negative Past Medical History Past Medical History: A Fib, congestive heart failure, COPD, CVA/TIA/stroke, heart disease Social History Smoking Status: Former Smoker Allergies Coded Allergies: No Known Drug Allergy (Verified Allergy, Unknown, none, 07/30/16) Roflumilast (Unverified Allergy, Unknown, unknown, 07/30/16) Current Medications Reported Home Medications Medications Dose Route/Sig Max Daily Dose Days Date Category Multivitamin (Multivitamins) Tab 1 Tab PO DAILY 07/30/16 Reported Duoneb (Ipratropium-Albuterol) 3 Ml Nebu 1 Treatment INH Q4H 07/30/16 Reported Tudorza Pressair (Aclidinium [place]) 400 Mcg/Act Aer 1 Dose PO DIRECTED 07/30/16 Reported Advair Diskus 500/50 60 Dose (Fluticasone Prop/Salmeterol) 1 Ea Aerp 1 Puff INH BID 07/30/16 Reported Zithromax (Azithromycin) 250 Mg Tab 250 Mg PO Q2D 07/30/16 Reported Prednisone 10 Mg Tab 10 Mg PO DAILY 07/30/16 Reported Zocor (Simvastatin) 40 Mg Tab 40 Mg PO HS 06/29/12 Reported Betapace (Sotalol Hcl) 80 Mg Tab 80 Mg PO BID 06/29/12 Reported Xarelto (Rivaroxaban) 20 Mg Tab 20 Mg PO DAILY 06/29/12 Reported Cozaar (Losartan Potassium) 25 Mg Tab 25 Mg PO DAILY 06/29/12 Reported Coreg (Carvedilol) 6.25 Mg Tab 6.25 Mg PO BID 06/29/12 Reported Proair Hfa (Albuterol) Aers 1-2 Puffs INH QID PRN 06/29/12 Reported Physical Physical Exam Vital Signs: Date Time Temp Pulse Resp B/P (MAP) Pulse Ox O2 Delivery O2 Flow Rate FiO2 07/31/16 16:00 36.9 81 16 91/60 (70) 100 Nasal Cannula 4.0 07/31/16 14:27 82 20 98 Nasal Cannula 4.0 07/31/16 14:00 90 98 07/31/16 12:00 Nasal Cannula 4.0 07/31/16 11:30 36.5 83 20 111/71 (84) 93 Room Air 07/31/16 08:00 BiPAP 35 07/31/16 07:58 36.0 74 20 90/63 (72) 100 Ambu-Bag 07/31/16 07:05 85 95 35 07/31/16 07:05 85 25 95 BiPAP/CPAP 35 07/31/16 04:00 90 BiPAP 3.0 35 07/31/16 03:53 36.4 79 32 118/84 (95) 90 BiPAP 07/31/16 02:17 78 22 92 BiPAP/CPAP 35 07/31/16 02:16 78 92 35 07/30/16 23:43 78 95 35 07/30/16 23:15 34.7 79 33 110/72 BiPAP 07/30/16 23:15 34.7 79 33 110/72 (85) 94 BiPAP 3.0 45 07/30/16 22:32 78 26 118/80 94 BiPAP 07/30/16 22:02 79 26 117/84 94 Nasal Cannula 45 BiPAP 07/30/16 21:48 89 Nasal Cannula 3.0 07/30/16 21:30 75 26 112/83 97 BiPAP 07/30/16 20:47 78 28 108/66 90 Nasal Cannula 1.0 07/30/16 20:25 59 95 45 07/30/16 19:57 82 28 100/70 97 Nasal Cannula 4.0 07/30/16 19:10 81 20 108/72 97 Nasal Cannula 4.0 07/30/16 18:20 97 Nasal Cannula 4.0 07/30/16 18:10 88 07/30/16 18:07 36.4 88 32 133/82 97 Nasal Cannula 5.0 07/30/16 18:05 97 Nasal Cannula 4.0 General Appearance: uncomfortable, cachetic Neck: TRACHEA MIDLINE, SUPPLE, other (b/l JVD) Respiratory: wheezing (b/l), other (diminished breath sounds) Cardiovasular: REGULAR RATE/RHYTHM, NORMAL S1S2 Abdomen: NON TENDER, NO GUARDING Upper Extremities: NO EDEMA Lower Extremities: NO EDEMA Neuro: ALERT, ORIENTED x 3 Diagnostics Labs Results Past 24 Hours Test 07/30/16 18:38 07/30/16 18:46 07/30/16 18:49 07/30/16 18:54 Range/Units Bedside Glucose 130 70-99 mg/dl Ammonia 26.0 11-32 umol/L Thyroid Stimulating Hormone (TSH) 0.294 0.300-4.500 uIu/ml Free Thyroxine 1.05 0.80-1.60 ng/dl Bedside Lactic Acid Venous 1.30 0.90-1.70 mmol/L Test 07/30/16 18:59 07/30/16 20:10 07/30/16 20:50 07/30/16 22:53 Range/Units Ethyl Alcohol mg/dL < 3.0 0-3 mg/dl Arterial Blood pH 7.27 7.35-7.45 Arterial Blood Partial Pressure CO2 103 35-46 mmHg Arterial Blood Partial Pressure O2 97 80-95 mm/Hg Arterial Blood HCO3 46 19-24 mmol/L Arterial Blood Oxygen Saturation 96.2 90-95 % Arterial Blood Base Excess 14.9 -9-1.8 mEq/L Arterial Blood Gas Delivery 4 L Jarrod Test POS POS Urine Color DK YELLOW Urine Appearance CLEAR CLEAR Urine pH 5.5 4.5-7.5 Urine Specific [place] 1.035 1.000-1.030 Urine Protein 1+ NEG Urine Glucose (UA) NEG NEG Urine Ketones TRACE NEG Urine Occult Blood NEG NEG Urine Nitrite NEG NEG Urine Bilirubin NEG NEG Urine Urobilinogen NEG NEG Urine Leukocyte Esterase NEG NEG Urine WBC (Auto) 1-5 0-5 /hpf Urine RBC (Auto) 5-10 0-4 /hpf Urine Hyaline Casts (Auto) 5-10 0-5 /lpf Urine Epithelial Cells (Auto) 20-30 0-5 /lpf Urine Bacteria (Auto) NEG NEG Urine Opiates Screen NEG NEG Urine Methadone, Qualitative NEG NEG Urine Barbiturates NEG NEG Urine Phencyclidine (PCP) Level NEG NEG Ur Amphetamine/Methamphetamine NEG NEG MDMA (Ecstasy) Screen NEG NEG Urine Benzodiazepines Screen NEG NEG Urine Cocaine Metabolite NEG NEG Urine Marijuana (THC) NEG NEG Transferrin % Saturation 20-50 % Test 07/30/16 23:27 07/31/16 01:00 07/31/16 05:30 07/31/16 10:33 Range/Units Hemoglobin 12.8 11.9 14.0-18.0 g/dL Hematocrit 41.2 38.9 42-52 % Absolute Reticulocyte Count 0.05 0.02-0.10 10^6/uL Percent Reticulocyte Count 1.2 0.5-2.0 % Arterial Blood pH 7.18 7.30 7.29 7.35-7.45 Arterial Blood Partial Pressure CO2 123 90 91 35-46 mmHg Arterial Blood Partial Pressure O2 73 68 85 80-95 mm/Hg Arterial Blood HCO3 45 43 43 19-24 mmol/L Arterial Blood Oxygen Saturation 92.2 92.6 95.1 90-95 % Arterial Blood Base Excess 12.0 12.8 12.9 -9-1.8 mEq/L Arterial Blood Gas Delivery 45% 45% 4 L Jarrod Test POS POS POS POS Sodium Level 135 132 136-145 mmol/L Potassium Level 5.2 5.1 3.5-5.1 mmol/L Chloride Level 90 89 98-107 mmol/L Carbon Dioxide Level 40 41 21-32 mmol/L Anion Gap 4.0 2.0 3-11 mmol/L Blood Urea Nitrogen 13 16 7-18 mg/dl Creatinine 0.55 0.64 0.60-1.40 mg/dl Est Creatinine Clear Calc Drug Dose 104.9 84.5 ml/min Estimated GFR () 130.4 122.5 Estimated GFR (Non- 112.5 105.7 BUN/Creatinine Ratio 24.1 24.3 10-20 Random Glucose 130 139 70-99 mg/dl Calcium Level 8.8 8.8 8.5-10.1 mg/dl Iron Level 19 35-175 mcg/dl Total Iron Binding Capacity 283 250-450 mcg/dl Transferrin 171 200-360 mg/dl Transferrin % Saturation 8 20-50 % Ferritin 285.4 8.0-388.0 ng/ml Troponin I 0.086 0.081 0-0.045 ng/ml Vitamin B12 Level 560 211-911 pg/mL Folate 15.80 >5.38 ng/mL Total Triiodothyronine 0.45 0.60-1.81 ng/ml White Blood Count 36.80 4.8-10.8 K/uL Red Blood Count 3.97 4.7-6.1 M/uL Mean Corpuscular Volume 98.0 80-100 fL Mean Corpuscular Hemoglobin 30.0 25-34 pg Mean Corpuscular Hemoglobin Concent 30.6 32-36 g/dl Platelet Count 189 130-400 K/uL Mean Platelet Volume 9.3 7.4-10.4 fL Neutrophils (%) (Auto) 95.0 % Lymphocytes (%) (Auto) 2.5 % Monocytes (%) (Auto) 2.1 % Eosinophils (%) (Auto) 0.0 % Basophils (%) (Auto) 0.0 % Neutrophils # (Auto) 34.95 1.4-6.5 K/uL Lymphocytes # (Auto) 0.91 1.2-3.4 K/uL Monocytes # (Auto) 0.77 0.11-0.59 K/uL Eosinophils # (Auto) 0.00 0-0.5 K/uL Basophils # (Auto) 0.01 0-0.2 K/uL RDW Standard Deviation 43.8 36.4-46.3 fL RDW Coefficient of Variation 12.3 11.5-14.5 % Immature Granulocyte % (Auto) 0.4 % Immature Granulocyte # (Auto) 0.16 0.00-0.02 K/uL Microbiology Results 07/30/16 Blood Culture, Received Pending 07/30/16 Blood Culture, Received Pending 07/31/16 Gram Stain - Final, Resulted 07/31/16 Sputum Culture, Resulted Pending Diagnostic Radiology CXR 07/30/16: IMPRESSION: 1. Emphysema 2. Left lower lobe airspace opacity suspicious for pneumonia. Clinical and radiographic follow-up is recommended. Echo 07/31/16: * The study was technically difficult. * The left ventricle is normal in size. * There is normal left ventricular wall thickness. * No regional wall motion abnormalities noted. * No hemodynamically significant valvular aortic stenosis. * The right ventricle is mildly dilated. * There is a pacemaker lead in the right ventricle. * There is trace tricuspid regurgitation. * The inferior vena cava is moderately dilated. * Right ventricular systolic pressure is elevated at 50-60mmHg. Impression Assessment and Plan 61 year old male with end-stage emphysema, presents with acute on chronic hypoxic and hypercarbic respiratory failure, left basilar/perihilar pneumonia H/o a-fib and CVA Cor pulmonale Plan: Nocturnal and prn bilevel NIV Abx: Doxy, Zosyn Steroids: prednisone 40 mg daily Bronchodilators Fully anticoagulated with Xarelto Consider diuresis, for the time being continue gentle hydration I attempted to call his pulmonary physician, Dr Catrachito Campbell, at . Unfortunately, the office was already closed by the time I got to call him. Prognosis is poor, patient is DNR Note Total Time (mins): 50
[2016-07-31] MEDS ORDERED: SODIUM CHLORIDE 0.9% 1000ML 1,000 ML IV ONE (17:30)
[2016-07-31] MEDS ORDERED: SODIUM CHLORIDE 0.9% 1000ML 500 ML IV ONE (17:45)
[2016-07-31] MEDS ORDERED: SODIUM CHLORIDE 0.9% 1000ML 1,000 ML IV SCH (18:16)
[2016-07-31] MEDS ORDERED: MoRPHine SULFATE 2 MG/ML CARP IV PRN (18:30)
[2016-07-31] MEDS ORDERED: VANCOMYCIN CONSULT ACTIVE PRN (18:45)
--- NOTE | 2016-07-31 18:47 | DIAGNOSTIC IMAGING REPORT ---
CHEST ONE VIEW PORTABLE HISTORY: Respiratory failure. congestion? COMPARISON: Chest 07/30/2016. FINDINGS: The lungs remain hyperexpanded with apical predominant emphysematous changes. No pneumothorax. Left-sided dual chamber pacemaker. Bibasilar interstitial thickening is again noted. Left lower lobe consolidation persists. The heart is normal in size. IMPRESSION: No change in the left lower lobe consolidation. This is consistent with a pneumonia. Recommend radiographic follow-up to ensure complete resolution. Electronically signed by: Mark North M.D. 07/31/2016 6:45 PM Dictated Date/Time: 07/31/2016 6:44 PM
[2016-07-31] MEDS ORDERED: VANCOMYCIN INJ 1,250 MG in SODIUM CHLORIDE 0.9% 250ML 250 ML IV ONE (19:00)
[2016-07-31] MEDS: METHYLPREDNISOLONE IV 40 MG in SYRINGE 0 ML IV SCH (19:59)
[2016-07-31] MEDS: SIMVASTATIN 40 MG TAB PO SCH (21:00)
[2016-07-31] MEDS: INSULIN GLARGINE SOLOSTAR 100 UNITS/ML 3 ML PEN SC SCH (21:57)
[2016-08-01] VITALS (14 sets, daily range): BP systolic 88–117; BP diastolic 61–82; PULSE 69–110; TEMP 36.6–37; O2SAT 95–100
[2016-08-01] MEDS: DOXYCYCLINE IV 100 MG in DEXTROSE 5% 100ML 100 ML IV SCH ×2 (00:10→12:25)
[2016-08-01] MEDS: IPRATROPIUM BROMIDE NEB SOLN 0.02% 2.5 ML VIAL INH SCH ×4 (02:19→19:45)
[2016-08-01] MEDS: LEVALBUTEROL 1.25MG/0.5ML NEB INH SCH ×4 (02:20→19:45)
[2016-08-01] MEDS: PIPERACILL/TAZOBAC IV 3.375 GM in DEXTROSE 5% 100ML IV SCH ×3 (02:32→17:46)
[2016-08-01] MEDS: METHYLPREDNISOLONE IV 40 MG in SYRINGE 0 ML IV SCH ×3 (03:22→19:26)
[2016-08-01 06:18] LABS: HEMATOCRIT 34.2 % (42-52); MEAN CELL VOLUME 96.1 fL (80-100); MEAN CORPUSCULAR HEMOGLOBIN 30.3 pg (25-34); MEAN CORPUSCULAR HGB CONC 31.6 g/dl (32-36); MEAN PLATELET VOLUME 9.4 fL (7.4-10.4); PLATELET COUNT 175 K/uL (130-400); RED BLOOD COUNT 3.56 M/uL (4.7-6.1); WHITE BLOOD COUNT 26.67 K/uL (4.8-10.8)
[2016-08-01 06:42] LABS: BASO ABS # 0.01 K/uL (0-0.2); COMPLETE YES; IG% 0.6 %; LYMPH % 1.5 %; LYMPH ABS # 0.41 K/uL (1.2-3.4); MONO % 2.7 %; NEUT % 95.2 %
[2016-08-01 06:57] LABS: BUN/CREATININE RATIO 24.2 (10-20); CREATININE 0.64 mg/dl (0.60-1.40); POTASSIUM 4.6 mmol/L (3.5-5.1)
[2016-08-01] MEDS: MULTIVITAMIN TAB PO SCH (07:43)
[2016-08-01] MEDS: SOTALOL HCL 80 MG TAB PO SCH ×2 (07:44→21:12)
--- NOTE | 2016-08-01 07:47 | DIAGNOSTIC IMAGING REPORT ---
CHEST ONE VIEW PORTABLE CLINICAL HISTORY: infiltrate/congestion pneumonia COMPARISON STUDY: 07/31/2016 FINDINGS: Persistent consolidative infiltrate left base. No change in the prior exam. Slight blunting left lateral calcific angle. Emphysematous change throughout the lungs. No additional infiltrate. IMPRESSION: Consolidative left basilar infiltrate. No change from the prior study. Electronically signed by: Sukh Barron M.D. 08/01/2016 7:45 AM Dictated Date/Time: 08/01/2016 7:44 AM
[2016-08-01] MEDS: SODIUM CHLORIDE 0.9% 1000ML 1,000 ML IV SCH ×2 (08:00→22:40)
[2016-08-01] MEDS ORDERED: VANCOMYCIN INJ 750 MG in SODIUM CHLORIDE 0.9% 250ML 250 ML IV SCH (08:00)
--- NOTE | 2016-08-01 08:56 | Pharmacy Progress Note ---
Pharmacy Antibiotic Consult Date of Service: Aug 01, 2016. Pharmacy Dosing Scope Pharmacy is consulted to initiate vancomycin and zosyn IV dosing therapy, order appropriate labs and adjust drug dose/frequency. Subjective The patient is a 61 year old male admitted on Jul 30, 2016 at 22:17. Objective Height (Feet): 5 Height (Inches): 10.00 Weight (Kilograms): 45.500 Lab Results (24hrs): Test 07/31/16 10:33 07/31/16 21:05 08/01/16 04:44 08/01/16 05:37 Arterial Blood pH 7.29 (7.35-7.45) Arterial Blood Partial Pressure CO2 91 mmHg (35-46) Arterial Blood Partial Pressure O2 85 mm/Hg (80-95) Arterial Blood HCO3 43 mmol/L (19-24) Arterial Blood Oxygen Saturation 95.1 % (90-95) Arterial Blood Base Excess 12.9 mEq/L (-9-1.8) Arterial Blood Gas Delivery 4 L Jarrod Test POS (POS) Bedside Glucose 137 mg/dl (70-99) White Blood Count 26.67 K/uL (4.8-10.8) Red Blood Count 3.56 M/uL (4.7-6.1) Hemoglobin 10.8 g/dL (14.0-18.0) Hematocrit 34.2 % (42-52) Mean Corpuscular Volume 96.1 fL (80-100) Mean Corpuscular Hemoglobin 30.3 pg (25-34) Mean Corpuscular Hemoglobin Concent 31.6 g/dl (32-36) Platelet Count 175 K/uL (130-400) Mean Platelet Volume 9.4 fL (7.4-10.4) Neutrophils (%) (Auto) 95.2 % Lymphocytes (%) (Auto) 1.5 % Monocytes (%) (Auto) 2.7 % Eosinophils (%) (Auto) 0.0 % Basophils (%) (Auto) 0.0 % Neutrophils # (Auto) 25.37 K/uL (1.4-6.5) Lymphocytes # (Auto) 0.41 K/uL (1.2-3.4) Monocytes # (Auto) 0.73 K/uL (0.11-0.59) Eosinophils # (Auto) 0.00 K/uL (0-0.5) Basophils # (Auto) 0.01 K/uL (0-0.2) RDW Standard Deviation 43.3 fL (36.4-46.3) RDW Coefficient of Variation 12.2 % (11.5-14.5) Immature Granulocyte % (Auto) 0.6 % Immature Granulocyte # (Auto) 0.15 K/uL (0.00-0.02) Sodium Level 131 mmol/L (136-145) Potassium Level 4.6 mmol/L (3.5-5.1) Chloride Level 87 mmol/L (98-107) Carbon Dioxide Level 40 mmol/L (21-32) Anion Gap 4.0 mmol/L (3-11) Blood Urea Nitrogen 15 mg/dl (7-18) Creatinine 0.64 mg/dl (0.60-1.40) Est Creatinine Clear Calc Drug Dose 78.0 ml/min Estimated GFR () 122.5 Estimated GFR (Non- 105.7 BUN/Creatinine Ratio 24.2 (10-20) Random Glucose 106 mg/dl (70-99) Calcium Level 9.0 mg/dl (8.5-10.1) Magnesium Level 2.0 mg/dl (1.8-2.4) Test 08/01/16 07:01 Bedside Glucose 94 mg/dl (70-99) Micro Results: Item Value Date Time MRSA DNA Surveillance Screen - Final Complete 08/01/16 0425 Nasal Specimen Negative for MRSA by DNA Probe Gram Stain - Final Resulted 07/31/16 0845 Sputum Expectorated Sputum Blood Culture - Preliminary Resulted 07/30/16 1859 Blood NO GROWTH TO DATE. Blood Culture - Preliminary Resulted 07/30/16 1846 Blood NO GROWTH TO DATE. Assessment & Plan Patient started on vancomycin, zosyn, and doxycycline (not consult) for possible CAP, possible aspiration pneumonia. Vancomycin: * Received LD of vancomycin 1250 mg (~25 mg/kg) x 1 * Started on MD of vancomycin 750 mg (~15 mg/kg) q 12 hrs to achieve an estimated trough ~15-20 mcg/ml (goal for PNA) * Will plan to check level prior to the 0800 dose on 08/02 to ensure therapeutic * Estimated kinetics: t1/2~10 hrs, ke~0.07 hr-1 Zosyn: * 3.375 gm iv q 8 hrs (appropriate for CrCl >20 ml/min; actual CrCl ~78 ml/min) Pharmacy will continue to follow and will adjust dose/frequency as necessary. Thank you
[2016-08-01 09:18] LABS: ALLEN TEST POS (POS); ARTERIAL BLD GAS O2 SATURATION 98.9 % (90-95); ARTERIAL BLOOD GAS BASE EXCESS 7.2 mEq/L (-9-1.8); ARTERIAL BLOOD GAS HCO3 34 mmol/L (19-24); ARTERIAL BLOOD GAS PO2 148 mm/Hg (80-95); ARTERIAL BLOOD GAS pH 7.38 (7.35-7.45); O2 ADMINISTRATION 4L
--- NOTE | 2016-08-01 16:23 | DIAGNOSTIC IMAGING REPORT ---
VIDEO SWALLOW HISTORY: Pneumonia. assess for aspiration, please schedule at 1430 TECHNIQUE: Video fluoroscopic evaluation of swallowing was performed in the AP and lateral projections by the speech pathology staff. The patient is fed nectar-thick and thin liquid barium, a barium coated wafer, and barium pudding. FLUOROSCOPY TIME: 3.9 minutes. A cine loop submitted. COMPARISON STUDY: None. FINDINGS: Multiple episodes of silent aspiration with the thin liquid barium. There are also episodes of deep penetration with the nectar thick liquid barium. There is moderate vallecular residue with the thicker barium consistencies. Moderate to large Zenker's diverticulum. IMPRESSION: 1. Multiple episodes of silent aspiration with the thin liquid barium.. 2. A Zenker's diverticulum. 3. Please see the speech pathologist report for detailed findings and recommendations. Electronically signed by: Mark North M.D. 08/01/2016 4:21 PM Dictated Date/Time: 08/01/2016 4:16 PM
[2016-08-01] MEDS: RIVAROXABAN 10 MG TAB PO SCH (17:40)
--- NOTE | 2016-08-01 19:00 | Progress Note ---
Internal Med Progress Note Date of Service: Aug 01, 2016. Provider Documentation: SUBJECTIVE: resting comfortably doing much better today mental status improved afebrile eating better OBJECTIVE: Vital Signs-as noted below Exam: General-alert and oriented ENT-Normal hearing Neck-no neck masses Lungs-cta b/l no wheezing or crackles Heart-s1 and s2 heard regular no murmurs Abdomen-soft bowel sounds present nontender no distension Extremities-no edema no erythema Neuro-alert and oriented moves extremities Lab data as noted below. ASSESSMENT & PLAN: 1. Acute on chronic hypoxemic, hypercapnic respiratory failure secondary to steroid dependent chronic obstructive pulmonary disease exacerbation secondary to community-acquired pneumonia possible aspiration, px known to be at risk for aspiration post CVA no sepsis resp acidosis, abn trop 2 to above on iv abx, iv steroids, nebs will continue bipap.pulmonary consulted 08/01/16 improving saturating ok on nasal canula AbG improved today 2. chronic systolic heart failure secondary to non-ischemic cardiomyopathy (EF 40% TTE 2010) sp ICD patient on the dry side.On gentle fluids . Will monitor. 3. PAF, px NSR, on Xarelto. On sotalol.Was in rapid afib yesterday but ok now. Will monitor 4. history of cerebrovascular accident.. On xarelto. 5. Hypertension stable. Will monitor. 6. past tobacco abuse. 7. Anemia, hemoglobin drop from baseline. ro occult GI bleed. 8. malnutrition (low BMI) nutrition consult DVT PROPHYLAXIS on xarelto DISPOSITION to be determined Vital Signs: Date Time Temp Pulse Resp B/P (MAP) Pulse Ox O2 Delivery O2 Flow Rate FiO2 08/01/16 16:00 Nasal Cannula 4.0 08/01/16 15:55 36.8 77 18 113/79 (90) 100 08/01/16 14:26 82 14 98 Nasal Cannula 4.0 08/01/16 12:00 Nasal Cannula 4.0 08/01/16 11:30 36.7 73 22 105/65 (78) 99 Nasal Cannula 4.0 08/01/16 08:00 Nasal Cannula 4.0 08/01/16 07:47 37.0 81 26 117/82 (94) 100 Nasal Cannula 4.0 08/01/16 07:20 89 100 30 08/01/16 07:20 89 22 98 BiPAP/CPAP 30 08/01/16 07:06 36.7 78 20 106/76 (86) 100 BiPAP 08/01/16 05:19 108 100 40 08/01/16 04:41 36.6 101 22 90/65 (73) 100 BiPAP 08/01/16 04:00 BiPAP 40 08/01/16 02:20 110 26 95 BiPAP/CPAP 50 08/01/16 02:20 103 100 50 08/01/16 00:00 BiPAP 40 07/31/16 23:52 103 100 50 07/31/16 23:43 36.8 109 16 85/48 (60) 100 BiPAP 07/31/16 20:00 BiPAP 07/31/16 19:41 119 23 92 BiPAP/CPAP 50 07/31/16 19:40 119 92 50 07/31/16 19:27 36.9 114 16 99/75 (83) 98 Lab Results: Results Past 24 Hours Test 07/31/16 21:05 08/01/16 05:37 08/01/16 07:01 08/01/16 09:06 Range/Units Bedside Glucose 137 94 70-99 mg/dl White Blood Count 26.67 4.8-10.8 K/uL Red Blood Count 3.56 4.7-6.1 M/uL Hemoglobin 10.8 14.0-18.0 g/dL Hematocrit 34.2 42-52 % Mean Corpuscular Volume 96.1 80-100 fL Mean Corpuscular Hemoglobin 30.3 25-34 pg Mean Corpuscular Hemoglobin Concent 31.6 32-36 g/dl Platelet Count 175 130-400 K/uL Mean Platelet Volume 9.4 7.4-10.4 fL Neutrophils (%) (Auto) 95.2 % Lymphocytes (%) (Auto) 1.5 % Monocytes (%) (Auto) 2.7 % Eosinophils (%) (Auto) 0.0 % Basophils (%) (Auto) 0.0 % Neutrophils # (Auto) 25.37 1.4-6.5 K/uL Lymphocytes # (Auto) 0.41 1.2-3.4 K/uL Monocytes # (Auto) 0.73 0.11-0.59 K/uL Eosinophils # (Auto) 0.00 0-0.5 K/uL Basophils # (Auto) 0.01 0-0.2 K/uL RDW Standard Deviation 43.3 36.4-46.3 fL RDW Coefficient of Variation 12.2 11.5-14.5 % Immature Granulocyte % (Auto) 0.6 % Immature Granulocyte # (Auto) 0.15 0.00-0.02 K/uL Sodium Level 131 136-145 mmol/L Potassium Level 4.6 3.5-5.1 mmol/L Chloride Level 87 98-107 mmol/L Carbon Dioxide Level 40 21-32 mmol/L Anion Gap 4.0 3-11 mmol/L Blood Urea Nitrogen 15 7-18 mg/dl Creatinine 0.64 0.60-1.40 mg/dl Est Creatinine Clear Calc Drug Dose 78.0 ml/min Estimated GFR () 122.5 Estimated GFR (Non- 105.7 BUN/Creatinine Ratio 24.2 10-20 Random Glucose 106 70-99 mg/dl Calcium Level 9.0 8.5-10.1 mg/dl Magnesium Level 2.0 1.8-2.4 mg/dl Arterial Blood pH 7.38 7.35-7.45 Arterial Blood Partial Pressure CO2 57 35-46 mmHg Arterial Blood Partial Pressure O2 148 80-95 mm/Hg Arterial Blood HCO3 34 19-24 mmol/L Arterial Blood Oxygen Saturation 98.9 90-95 % Arterial Blood Base Excess 7.2 -9-1.8 mEq/L Arterial Blood Gas Delivery 4L Jarrod Test POS POS Test 08/01/16 10:47 Range/Units Bedside Glucose 106 70-99 mg/dl Microbiology Results 08/01/16 MRSA DNA Surveillance Screen - Final, Complete Specimen Negative for MRSA by DNA Probe
[2016-08-01] MEDS: SIMVASTATIN 40 MG TAB PO SCH (21:12)
[2016-08-01] MEDS: INSULIN GLARGINE SOLOSTAR 100 UNITS/ML 3 ML PEN SC SCH (21:15)
[2016-08-02] VITALS (12 sets, daily range): BP systolic 93–126; BP diastolic 62–82; PULSE 63–76; TEMP 36.5–36.8; O2SAT 93–100
[2016-08-02] MEDS: DOXYCYCLINE IV 100 MG in DEXTROSE 5% 100ML 100 ML IV SCH ×2 (00:12→12:36)
[2016-08-02] MEDS: PIPERACILL/TAZOBAC IV 3.375 GM in DEXTROSE 5% 100ML IV SCH ×3 (01:35→18:50)
[2016-08-02] MEDS: IPRATROPIUM BROMIDE NEB SOLN 0.02% 2.5 ML VIAL INH SCH ×4 (01:40→19:50)
[2016-08-02] MEDS: LEVALBUTEROL 1.25MG/0.5ML NEB INH SCH ×4 (01:40→19:50)
[2016-08-02] MEDS: METHYLPREDNISOLONE IV 40 MG in SYRINGE 0 ML IV SCH (03:00)
[2016-08-02 06:30] LABS: COMPLETE YES; HEMATOCRIT 33.2 % (42-52); IG% 0.3 %; LYMPH % 1.7 %; MEAN CELL VOLUME 96.5 fL (80-100); MEAN CORPUSCULAR HEMOGLOBIN 29.9 pg (25-34); MEAN PLATELET VOLUME 9.4 fL (7.4-10.4); MONO % 4.1 %; NEUT % 93.9 %; PLATELET COUNT 177 K/uL (130-400); RED BLOOD COUNT 3.44 M/uL (4.7-6.1); WHITE BLOOD COUNT 17.56 K/uL (4.8-10.8)
[2016-08-02 07:16] LABS: CALCIUM 8.7 mg/dl (8.5-10.1); CREATININE 0.5 mg/dl (0.60-1.40); POTASSIUM 4.5 mmol/L (3.5-5.1)
[2016-08-02] MEDS ORDERED: VANCOMYCIN TROUGH SCH (07:30)
[2016-08-02] MEDS: SOTALOL HCL 80 MG TAB PO SCH ×2 (07:59→20:57)
[2016-08-02] MEDS: MULTIVITAMIN TAB PO SCH (08:00)
--- NOTE | 2016-08-02 10:31 | PULMONARY PROGRESS NOTE ---
DATE: 08/02/2016 TIME: 10:00 a.m. SUBJECTIVE: The patient states he is feeling better than he had been. He is much less short of breath than when he first came to the hospital which was on the . He is still coughing. He is not expectorating he states. He denies chest pains. The patient feels weak. He complains of no appetite and not having had a bowel movement. The patient apparently is still wearing BiPAP at night. At home he only has an oxygen concentrator. PHYSICAL EXAMINATION: GENERAL: The patient is a 61-year-old male who looks older than his chronologic age. VITAL SIGNS: Temperature is 36.6. HEENT: Pupils are reactive. Mouth exam shows absence of teeth. NECK: Palpation of the neck reveals no lymph nodes. The patient is very slender. His BMI is 16.1. CARDIAC: Heart rate is 72 per minute. The rhythm is regular. He has a pacer ICD in the left upper anterior chest. Blood pressure is 126/82. LUNGS: Lung herrera reveal severely diminished breath sounds bilaterally. There is prolongation to the expiratory phase of respiration. Oxygen saturation is 100% on 4 liter nasal cannula. ABDOMEN: Fairly soft. He does have bowel sounds. There is no focal tenderness. EXTREMITIES: Show no cyanosis, clubbing or edema. The patient had a video swallow done yesterday. This shows multiple episodes of silent aspiration with thin liquid barium. A large Zenker's diverticulum was noted. Chest x-ray done yesterday shows persistence of a left basilar infiltrate which has not changed since admission. LABORATORY DATA: White count today is 17.56. It had been 36.8 as of 07/31/2016. Hemoglobin today is 10.3. Platelets are 177,000. Most recent blood gas was done yesterday and the pH was 7.38 with a pCO2 of 57 and a pO2 of 148 on 4 liters. Electrolytes today show sodium 132, potassium 4.5, chloride 89, bicarbonate 43. BUN was 11 with a creatinine of 0.5. Blood sugar this morning is 112. IMPRESSIONS: 1. Respiratory failure -- acute on chronic with hypoxia and hypercarbia -- improved. 2. Chronic obstructive pulmonary disease with exacerbation. 3. Extensive pneumonia left lower lung field, likely related to aspiration. 4. Dysphagia. 5. Zenker's diverticulum. 6. Leukocytosis -- improved. COMMENTS: The patient is clinically improved. He is on methylprednisolone 40 mg IV q. 8 hours. I am going to decrease that dosage. He is still on Zosyn. He is on neb treatments with levalbuterol and ipratropium. He is on doxycycline. The patient has a history of severe CO2 retention. We need to somewhat limit his oxygen to keep his saturations between 88% and 92% in hopes of stimulating ventilation somewhat. His BiPAP pressures are 18/5. The differential between inspiration and expiration is 13 which is higher than desired. I am going to adjust the BiPAP pressures to 15/8 and we will see how he does. The patient likely would benefit from home BiPAP if he qualifies. That can be determined as he gets closer to discharge. The patient has this moderate to large Zenker's diverticulum. Ideally, that is taken care of surgically. At present, he would not be considered a surgical candidate due to his severe lung disease and poor blood gases. As time goes on, that could be further assessed.
[2016-08-02] MEDS: METHYLPREDNISOLONE IV 20 MG in SYRINGE 0 ML IV SCH ×2 (10:42→18:51)
[2016-08-02] MEDS: RIVAROXABAN 10 MG TAB PO SCH (16:49)
--- NOTE | 2016-08-02 17:22 | Progress Note ---
Internal Med Progress Note Date of Service: Aug 02, 2016. Provider Documentation: SUBJECTIVE: says had rough night but doing ok now eating but not much has cough with yellow sputum afebrile no pain OBJECTIVE: Vital Signs-as noted below Exam: General-alert and oriented ENT-Normal hearing Neck-no neck masses Lungs-cta b/l no wheezing or crackles Heart-s1 and s2 heard regular no murmurs Abdomen-soft bowel sounds present nontender no distension Extremities-no edema no erythema Neuro-alert and oriented moves extremities Lab data as noted below. ASSESSMENT & PLAN: 1. Acute on chronic hypoxemic, hypercapnic respiratory failure secondary to steroid dependent chronic obstructive pulmonary disease exacerbation secondary to community-acquired pneumonia possible aspiration, px known to be at risk for aspiration post CVA no sepsis resp acidosis, abn trop 2 to above on iv abx, iv steroids, nebs will continue bipap.pulmonary consulted 08/01/16 improving saturating ok on nasal canula AbG improved today 08/02/16 slow improvement tapering steroids 2. chronic systolic heart failure secondary to non-ischemic cardiomyopathy (EF 40% TTE 2010) sp ICD patient on the dry side.On gentle fluids and will stop fluids stoday . Will monitor.Stable/ f/u cxr in am 3. PAF, px NSR, on Xarelto. On sotalol.Was in rapid afib yesterday but ok now. Will monitor 4. history of cerebrovascular accident.. On xarelto. 5. Hypertension stable. Will monitor. 6. past tobacco abuse. 7. Anemia, hemoglobin drop from baseline. ro occult GI bleed. 8. malnutrition (low BMI) nutrition consult DVT PROPHYLAXIS on xarelto DISPOSITION to be determined monitor in tele pt/ot when more stable Vital Signs: Date Time Temp Pulse Resp B/P (MAP) Pulse Ox O2 Delivery O2 Flow Rate FiO2 08/02/16 16:00 Nasal Cannula 2.0 08/02/16 15:57 36.8 73 20 104/73 (83) 100 Nasal Cannula 7.0 08/02/16 14:28 70 18 96 Nasal Cannula 4.0 08/02/16 12:00 93 Nasal Cannula 2.0 08/02/16 11:13 36.7 68 20 99/68 (78) 98 Nasal Cannula 2.0 08/02/16 08:00 100 Nasal Cannula 4.0 40 08/02/16 07:45 36.6 76 20 126/82 (97) 100 Nasal Cannula 4.0 08/02/16 07:20 74 20 99 Nasal Cannula 4.0 08/02/16 04:38 36.5 68 18 93/62 (72) 99 Nasal Cannula 08/02/16 04:00 Nasal Cannula 4.0 08/02/16 01:40 63 18 95 Nasal Cannula 4.0 08/02/16 00:00 Nasal Cannula 4.0 08/02/16 00:00 100/68 (79) 08/01/16 23:47 36.6 69 20 88/61 (70) 100 Nasal Cannula 4.0 08/01/16 21:10 70 109/73 (85) 08/01/16 20:45 85 97 30 08/01/16 20:36 36.8 88 16 102/69 (80) 98 08/01/16 19:45 78 18 95 Nasal Cannula 4.0 08/01/16 19:20 Nasal Cannula 4.0 Lab Results: Results Past 24 Hours Test 08/01/16 20:23 08/02/16 05:57 08/02/16 06:39 08/02/16 11:12 Range/Units Bedside Glucose 135 112 143 70-99 mg/dl White Blood Count 17.56 4.8-10.8 K/uL Red Blood Count 3.44 4.7-6.1 M/uL Hemoglobin 10.3 14.0-18.0 g/dL Hematocrit 33.2 42-52 % Mean Corpuscular Volume 96.5 80-100 fL Mean Corpuscular Hemoglobin 29.9 25-34 pg Mean Corpuscular Hemoglobin Concent 31.0 32-36 g/dl Platelet Count 177 130-400 K/uL Mean Platelet Volume 9.4 7.4-10.4 fL Neutrophils (%) (Auto) 93.9 % Lymphocytes (%) (Auto) 1.7 % Monocytes (%) (Auto) 4.1 % Eosinophils (%) (Auto) 0.0 % Basophils (%) (Auto) 0.0 % Neutrophils # (Auto) 16.48 1.4-6.5 K/uL Lymphocytes # (Auto) 0.30 1.2-3.4 K/uL Monocytes # (Auto) 0.72 0.11-0.59 K/uL Eosinophils # (Auto) 0.00 0-0.5 K/uL Basophils # (Auto) 0.00 0-0.2 K/uL RDW Standard Deviation 44.1 36.4-46.3 fL RDW Coefficient of Variation 12.5 11.5-14.5 % Immature Granulocyte % (Auto) 0.3 % Immature Granulocyte # (Auto) 0.06 0.00-0.02 K/uL Sodium Level 132 136-145 mmol/L Potassium Level 4.5 3.5-5.1 mmol/L Chloride Level 89 98-107 mmol/L Carbon Dioxide Level 43 21-32 mmol/L Anion Gap 1.0 3-11 mmol/L Blood Urea Nitrogen 11 7-18 mg/dl Creatinine 0.50 0.60-1.40 mg/dl Est Creatinine Clear Calc Drug Dose 111.5 ml/min Estimated GFR () 135.6 Estimated GFR (Non- 117.0 BUN/Creatinine Ratio 23.0 10-20 Random Glucose 122 70-99 mg/dl Calcium Level 8.7 8.5-10.1 mg/dl Magnesium Level 2.0 1.8-2.4 mg/dl Test 08/02/16 16:42 Range/Units Bedside Glucose 112 70-99 mg/dl
[2016-08-02] MEDS: SIMVASTATIN 40 MG TAB PO SCH (20:57)
[2016-08-02] MEDS: INSULIN GLARGINE SOLOSTAR 100 UNITS/ML 3 ML PEN SC SCH (20:58)
[2016-08-03] VITALS (13 sets, daily range): BP systolic 83–127; BP diastolic 66–74; PULSE 63–122; TEMP 36–36.6; O2SAT 93–100
[2016-08-03] MEDS: DOXYCYCLINE IV 100 MG in DEXTROSE 5% 100ML 100 ML IV SCH ×2 (00:29→11:44)
[2016-08-03] MEDS: LEVALBUTEROL 1.25MG/0.5ML NEB INH SCH ×4 (01:24→19:29)
[2016-08-03] MEDS: IPRATROPIUM BROMIDE NEB SOLN 0.02% 2.5 ML VIAL INH SCH ×4 (01:24→19:28)
[2016-08-03] MEDS: PIPERACILL/TAZOBAC IV 3.375 GM in DEXTROSE 5% 100ML IV SCH ×3 (02:43→17:14)
[2016-08-03] MEDS: METHYLPREDNISOLONE IV 20 MG in SYRINGE 0 ML IV SCH ×3 (03:48→18:40)
[2016-08-03 07:07] LABS: BASO % 0.1 %; BASO ABS # 0.01 K/uL (0-0.2); COMPLETE YES; HEMATOCRIT 35.2 % (42-52); IG% 0.2 %; LYMPH ABS # 0.29 K/uL (1.2-3.4); MEAN PLATELET VOLUME 9.4 fL (7.4-10.4); MONO % 4.4 %; NEUT % 93.3 %; PLATELET COUNT 193 K/uL (130-400); RED BLOOD COUNT 3.63 M/uL (4.7-6.1); WHITE BLOOD COUNT 14.84 K/uL (4.8-10.8)
--- NOTE | 2016-08-03 07:14 | DIAGNOSTIC IMAGING REPORT ---
CHEST ONE VIEW PORTABLE CLINICAL HISTORY: congestion COMPARISON STUDY: 08/01/2016 FINDINGS: There is severe pulmonary emphysema. There are persistent left lower lobe airspace opacities suspicious for pneumonia. There are small bilateral pleural effusions. There is a left subclavian dual-chamber central venous pacemaker present. Underlying pulmonary arterial hypertension is suspected. IMPRESSION: 1. Severe emphysema 2. Persistent left lower lobe airspace opacities suspicious for pneumonia 3. Small bilateral pleural effusions Electronically signed by: Vincenzo Lazo M.D. 08/03/2016 7:13 AM Dictated Date/Time: 08/03/2016 7:12 AM
[2016-08-03] MEDS ORDERED: FUROSEMIDE INJ 20 MG in SYRINGE 0 ML IV ONE (07:45)
[2016-08-03] MEDS: MULTIVITAMIN TAB PO SCH (07:46)
[2016-08-03] MEDS: SOTALOL HCL 80 MG TAB PO SCH ×2 (07:46→21:12)
[2016-08-03 08:06] LABS: BUN/CREATININE RATIO 21.5 (10-20); CALCIUM 9.4 mg/dl (8.5-10.1); CREATININE 0.52 mg/dl (0.60-1.40); POTASSIUM 4.6 mmol/L (3.5-5.1)
[2016-08-03] MEDS ORDERED: BISACODYL 10 MG SUPP PR ONE (11:30)
[2016-08-03] MEDS ORDERED: BISACODYL 5 MG TABEC PO ONE (11:30)
--- NOTE | 2016-08-03 16:29 | PROGRESS NOTE ---
DATE: 08/03/2016 PROBLEM LIST: Includes: 1. Respiratory failure, acute on chronic with hypoxia and hypercarbia. 2. Steroid and oxygen dependent, severe COPD. 3. Left lower lobe pneumonia, most likely secondary to aspiration. 4. Dysphasia. 5. Zenker's diverticulum. 6. Improving leukocytosis. SUBJECTIVE: The patient reports that his breathing continues to be problematic. He states that he is feeling better than when he came in, but he is still short of breath. He states that he is still coughing. He states that he tries to cough mucus up and feels like there is mucous there, but he has difficulty getting it expectorated. He states that he feels like if he gets it out he would breathe better. He states that the mucus he does get out is a bright yellow color. No chest pain at this time. He does feel weak and run down. The patient reports no significant change or no noticeable change with his BiPAP, adjustment Dr. Grant made yesterday. No other concerns or problems. OBJECTIVE: GENERAL: The patient is a 61-year-old male, looks older than stated age. He is interactive and cooperative, alert, he is oriented. VITAL SIGNS: Temp 36.6, pulse 70, respirations 16, blood pressure 106/74, pulse ox 97% on 2 liters. HEENT: Normocephalic, atraumatic. Pupils equal, round and reactive to light and accommodation. Extraocular movements are intact. [place] moist gingival and buccal mucosa. NECK: Supple. No mass. No adenopathy. No bruit. CHEST: Significantly diminished breath sounds bilaterally, difficult to ascertain any wheeze, rales or rhonchi at this time. CARDIOVASCULAR: Regular rate and rhythm. No murmurs, gallops or rubs. ABDOMEN: Flat, soft. Bowel sounds are present. No guarding, rigidity or organomegaly. EXTREMITIES: No erythema or edema. No cyanosis or clubbing. NEUROLOGIC: Cranial nerves II through XII are intact. No focal deficits noted. LABORATORY DATA: White count is down to 14,000, H&H 10.9 and 35.2, platelet count 193,000, carbon dioxide is 43, he has been fluctuating between 40 and 48. Chest x-ray showing a persistent left lower lobe airspace opacity which continues to be suspicious for pneumonia. IMPRESSION: The patient is a 61-year-old male with severe oxygen and steroid dependent COPD with what appears to be a left lower lobe pneumonia. At this time, the patient has not really seen much significant improvement. His white count is improving. Chest x-ray is not significantly improved, although clinically he is showing some signs that he is getting better. At this time would like to get a little bit more aggressive with him. The patient reports that he normally is on Advair and Spiriva at home, he has not been getting these, I would like to restart these. I would also like for the patient to have a flutter valve and a vibration vest to see if we can help him expectorate some of the mucus. I would also like to try and get sputum culture. We will repeat the chest x-ray in the morning. If he continues to show difficulty with chest x-ray clear, he may need to consider CAT scan or possible bronchoscopic evaluation. The patient will continue to be followed through hospitalization.
[2016-08-03] MEDS: RIVAROXABAN 10 MG TAB PO SCH (17:13)
--- NOTE | 2016-08-03 17:49 | Progress Note ---
Internal Med Progress Note Date of Service: Aug 03, 2016. Provider Documentation: SUBJECTIVE: looks better says has sob and cough on and off not eating much afebrile constipated denies pain OBJECTIVE: Vital Signs-as noted below Exam: General-alert and oriented ENT-Normal hearing Neck-no neck masses Lungs-cta b/l no wheezing or crackles Heart-s1 and s2 heard regular no murmurs Abdomen-soft bowel sounds present nontender no distension Extremities-no edema no erythema Neuro-alert and oriented moves extremities Lab data as noted below. ASSESSMENT & PLAN: 1. Acute on chronic hypoxemic, hypercapnic respiratory failure secondary to steroid dependent chronic obstructive pulmonary disease exacerbation secondary to community-acquired pneumonia possible aspiration, px known to be at risk for aspiration post CVA no sepsis resp acidosis, abn trop 2 to above on iv abx, iv steroids, nebs will continue bipap.pulmonary consulted 08/01/16 improving saturating ok on nasal canula AbG improved today 08/02/16 slow improvement tapering steroids 08/03/16 pulmonary staring on [place] and Spiriva flutter valve and vibration vest if no improvement plan for ct scan/bronchoscopy. 2. chronic systolic heart failure secondary to non-ischemic cardiomyopathy (EF 40% TTE 2010) sp ICD patient on the dry side.On gentle fluids and will stop fluids stoday . Will monitor.Stable/ f/u cxr in am stopped fluids and a dose of iv Lasix given today 3. PAF, px NSR, on Xarelto. On sotalol.Was in rapid afib yesterday but ok now. Will monitor 4. history of cerebrovascular accident.. On xarelto. 5. Hypertension stable. Will monitor. 6. past tobacco abuse. 7. Anemia, hemoglobin drop from baseline. ro occult GI bleed.Hb stable 8. malnutrition (low BMI) nutrition consult DVT PROPHYLAXIS on xarelto DISPOSITION to be determined monitor in tele pt/ot when more stable Vital Signs: Date Time Temp Pulse Resp B/P (MAP) Pulse Ox O2 Delivery O2 Flow Rate FiO2 08/03/16 16:00 100 Nasal Cannula 2.0 08/03/16 16:00 36.6 75 18 108/72 (84) 93 Nasal Cannula 2.0 08/03/16 14:25 69 18 96 Nasal Cannula 2.0 08/03/16 12:04 36.6 70 16 106/74 (85) 97 6/23/17 12:00 100 Nasal Cannula 2.0 08/03/16 08:00 100 Nasal Cannula 2.0 08/03/16 07:56 68 18 100 Nasal Cannula 6.0 08/03/16 07:45 36.5 63 20 103/72 (82) 100 6.0 08/03/16 04:05 36.5 67 22 93/66 (75) 100 Nasal Cannula 6.0 08/03/16 04:00 Nasal Cannula 08/03/16 01:24 70 18 100 Nasal Cannula 6.0 08/03/16 00:10 36.5 122 22 83/69 (74) 100 Nasal Cannula 6.0 08/03/16 00:00 Nasal Cannula 08/02/16 20:11 36.6 76 22 104/70 (81) 99 Nasal Cannula 7.0 08/02/16 20:00 Nasal Cannula 2.0 08/02/16 19:51 72 18 94 Nasal Cannula 6.0 Lab Results: Results Past 24 Hours Test 08/02/16 20:53 08/03/16 06:27 08/03/16 06:55 08/03/16 11:13 Range/Units Bedside Glucose 119 102 116 70-99 mg/dl White Blood Count 14.84 4.8-10.8 K/uL Red Blood Count 3.63 4.7-6.1 M/uL Hemoglobin 10.9 14.0-18.0 g/dL Hematocrit 35.2 42-52 % Mean Corpuscular Volume 97.0 80-100 fL Mean Corpuscular Hemoglobin 30.0 25-34 pg Mean Corpuscular Hemoglobin Concent 31.0 32-36 g/dl Platelet Count 193 130-400 K/uL Mean Platelet Volume 9.4 7.4-10.4 fL Neutrophils (%) (Auto) 93.3 % Lymphocytes (%) (Auto) 2.0 % Monocytes (%) (Auto) 4.4 % Eosinophils (%) (Auto) 0.0 % Basophils (%) (Auto) 0.1 % Neutrophils # (Auto) 13.86 1.4-6.5 K/uL Lymphocytes # (Auto) 0.29 1.2-3.4 K/uL Monocytes # (Auto) 0.65 0.11-0.59 K/uL Eosinophils # (Auto) 0.00 0-0.5 K/uL Basophils # (Auto) 0.01 0-0.2 K/uL RDW Standard Deviation 44.3 36.4-46.3 fL RDW Coefficient of Variation 12.4 11.5-14.5 % Immature Granulocyte % (Auto) 0.2 % Immature Granulocyte # (Auto) 0.03 0.00-0.02 K/uL Sodium Level 131 136-145 mmol/L Potassium Level 4.6 3.5-5.1 mmol/L Chloride Level 86 98-107 mmol/L Carbon Dioxide Level 43 21-32 mmol/L Anion Gap 3.0 3-11 mmol/L Blood Urea Nitrogen 11 7-18 mg/dl Creatinine 0.52 0.60-1.40 mg/dl Est Creatinine Clear Calc Drug Dose 107.2 ml/min Estimated GFR () 133.4 Estimated GFR (Non- 115.1 BUN/Creatinine Ratio 21.5 10-20 Random Glucose 115 70-99 mg/dl Calcium Level 9.4 8.5-10.1 mg/dl Magnesium Level 2.0 1.8-2.4 mg/dl Test 08/03/16 16:40 Range/Units Bedside Glucose 113 70-99 mg/dl
[2016-08-03] MEDS: FLUTICASONE/SALMETEROL (ADVAIR) 500/50 INH 14 PUFF INH SCH (21:12)
[2016-08-03] MEDS: SIMVASTATIN 40 MG TAB PO SCH (21:12)
[2016-08-03] MEDS: INSULIN GLARGINE SOLOSTAR 100 UNITS/ML 3 ML PEN SC SCH (21:13)
[2016-08-04] VITALS (16 sets, daily range): BP systolic 95–121; BP diastolic 53–82; PULSE 61–145; TEMP 36.4–36.8; O2SAT 92–99
[2016-08-04] MEDS: DOXYCYCLINE IV 100 MG in DEXTROSE 5% 100ML 100 ML IV SCH ×2 (00:26→12:07)
[2016-08-04] MEDS: PIPERACILL/TAZOBAC IV 3.375 GM in DEXTROSE 5% 100ML IV SCH ×3 (02:29→16:58)
[2016-08-04 06:15] LABS: COMPLETE YES; HEMATOCRIT 36.9 % (42-52); IG% 0.2 %; MEAN CELL VOLUME 96.3 fL (80-100); MEAN CORPUSCULAR HEMOGLOBIN 29.2 pg (25-34); MEAN CORPUSCULAR HGB CONC 30.4 g/dl (32-36); MEAN PLATELET VOLUME 9.4 fL (7.4-10.4); MONO % 7.9 %; NEUT % 88.9 %; PLATELET COUNT 203 K/uL (130-400); RED BLOOD COUNT 3.83 M/uL (4.7-6.1); WHITE BLOOD COUNT 13.17 K/uL (4.8-10.8)
--- NOTE | 2016-08-04 07:08 | DIAGNOSTIC IMAGING REPORT ---
SINGLE VIEW CHEST CLINICAL HISTORY: Left lower lobe pneumonia. FINDINGS: An AP, portable, upright chest radiograph is compared to study dated 08/03/2016. The examination is degraded by portable technique and patient rotation. A 2-lead cardiac AICD is unchanged in position and largely obscures the left upper chest. The cardiomediastinal silhouette is unremarkable. There is atherosclerotic calcification of the thoracic aorta. Enlargement of the central pulmonary arteries indicates pulmonary artery hypertension. Advanced emphysema and chronic interstitial thickening is similar to previous. There is patchy airspace consolidation at the left lung base with small left pleural effusion. The left upper lung and the right lung are clear as visualized. No pneumothorax is seen. The skeletal structures are osteopenic. The bony thorax is grossly intact. IMPRESSION: 1. Advanced emphysema. 2. There is patchy airspace consolidation at the left lung base with a small left pleural effusion. The appearance is typical for pneumonia. Radiographic follow-up to resolution is recommended. Electronically signed by: Vamsi Reynolds M.D. 08/04/2016 7:07 AM Dictated Date/Time: 08/04/2016 7:05 AM
[2016-08-04] MEDS: IPRATROPIUM BROMIDE NEB SOLN 0.02% 2.5 ML VIAL INH SCH (07:18)
[2016-08-04] MEDS: LEVALBUTEROL 1.25MG/0.5ML NEB INH SCH ×3 (07:19→19:23)
[2016-08-04] MEDS: FLUTICASONE/SALMETEROL (ADVAIR) 500/50 INH 14 PUFF INH SCH ×2 (08:41→21:29)
[2016-08-04] MEDS: TIOTROPIUM BROMIDE 5 PUFF/90 MCG INH INH SCH (08:42)
[2016-08-04] MEDS: SOTALOL HCL 80 MG TAB PO SCH ×3 (08:42→22:34)
[2016-08-04] MEDS: MULTIVITAMIN TAB PO SCH (08:43)
[2016-08-04] MEDS: METHYLPREDNISOLONE IV 20 MG in SYRINGE 0 ML IV SCH ×2 (10:31→10:32)
[2016-08-04] MEDS ORDERED: LACTULOSE SYRUP 30 GM/45 ML UDP PO ONE (11:00)
--- NOTE | 2016-08-04 12:43 | Pulmonology Progress Note ---
Pulmonary Progress Note Date of Service Aug 04, 2016. Attending Dr. Cecy Nguyen The patient is a 61 year old male with end-stage emphysema, on chronic O2 therapy, heart failure, h/o a-fib and CVA, on Xarelto,who presented to [facility] with acute on chronic respiratory failure due to COPD exacerbation likely secondary to LLL pneumonia on 07/30/2016 and initially required non-invasive bi-level ventilation. The patient's primary care provider is Fabian Callaway M.D.. Per sons, he was considered for a lung transplant, however, was deemed not a good candidate. Pulmonary: Dr Catrachito Bhatti - [place] - [phone] The patient today says he is much better since admission. he is nauseous and ondansetron helps him. His SOB is at baseline cough and phlegm production at baseline as well. His WBC trended from 36K to 12 K and he is afebrile since admission. He says he is on 10 mg prednisone BID at home. Objective GA speaks in full sentences with a raspy voice. Hypoxic cachexia lungs b/l diminished air entry HENT no JVD no LN but has temporal wasting heart irreg s1 s2 no murmurs abdomen soft non tender scaphoid +BS ext no clubbing or cyanosis changes of venous insufficiency but pedal edema has improved per patient (+1 ankle) neurologic A A O3 moves all 4 extrmities but is globally weak motor power 4/5 Assessment & Plan 61 yo male patient with end stage CPOD admitted with acute on chronic respiratory failure with AECOPD likley related to LLL pneumonia. He responded well to doxycyclin and zosyn and was started in advair, spiriva. would stop ipratropium now that spiriva is on board. Continue levalbuterol DC solumedrol use tapering course of prednisone and revert back to his home dose of prednisone. continue antibiotics for a total of 7 days since his serum CO2 increased 40-43 since admission would obtain one ABG titrate SpO2 to keep patient at 89-92% but not more since he is a retainer of CO2. Defer non respiratory medical problems to primary team. He needs Low Dose CT scan for screening for lung cancer annually. But that can be done on outside basis by his Primary medical hospital sales. Currently he would have infiltrates which confuse the picture DVT prophylaxis is taken care of since he is on xarelto judicious diuresis to maintain a balance of 0 fluids ( with insensible losses that would lead to -400-500daily) Data Medications: Current Inpatient Medications Medications (Trade) Dose Ordered Sig/Khoi Route Start Time Stop Time Status Last Admin Dose Admin Acetaminophen (Tylenol Tab) 650 mg Q4H PRN PO 07/30/16 22:45 08/29/16 22:44 Nitroglycerin (Nitrostat Tab) 0.4 mg UD PRN SL 07/30/16 22:45 08/29/16 22:44 Doxycycline Hyclate 100 mg/ Dextrose 110 ml @ 50 mls/hr Q12H IV 07/31/16 00:00 08/07/16 00:00 08/04/16 00:26 50 MLS/HR Piperacillin Sod/ Tazobactam Sod (Consult) 1 ea UD PRN N/A 07/31/16 09:00 08/30/16 08:59 Ondansetron HCl (Zofran Inj) 4 mg Q6H PRN IV 07/30/16 22:45 08/29/16 22:44 Tramadol HCl (Ultram Tab) 25 mg Q6H PRN PO 07/30/16 22:45 08/29/16 22:44 Multivitamins (Multivitamin Tab) 1 tab DAILY PO 07/31/16 09:00 08/30/16 08:59 08/04/16 08:43 1 TAB Rivaroxaban (Xarelto Tab) 20 mg QDD PO 07/31/16 16:45 08/30/16 16:44 08/03/16 17:13 20 MG Simvastatin (Zocor Tab) 40 mg HS PO 07/31/16 21:00 08/30/16 20:59 08/03/16 21:12 40 MG Sotalol HCl (Betapace Tab) 80 mg BID PO 07/31/16 09:00 08/30/16 08:59 08/04/16 08:42 80 MG Insulin Glargine (Lantus Solostar Pen) 5 unit HS SC 07/31/16 21:00 08/30/16 20:59 08/03/16 21:13 5 UNIT Piperacillin Sod/ Tazobactam Sod 3.375 gm/Dextrose 115 ml @ 28.75 mls/ hr Q8H IV 07/31/16 02:00 08/07/16 01:59 08/04/16 10:31 28.75 MLS/HR Ipratropium [place] (Atrovent 0.02% 0.5MG/2.5ML Neb) 0.5 mg Q6R INH 07/31/16 03:00 08/30/16 02:59 08/04/16 07:18 0.5 MG Levalbuterol (Xopenex 1.25MG/ 0.5ML Neb) 1.25 mg Q6R INH 07/31/16 03:00 08/30/16 02:59 08/04/16 07:19 1.25 MG Ipratropium [place] (Atrovent 0.02% 0.5MG/2.5ML Neb) 0.5 mg Q4H PRN INH 07/31/16 01:30 08/30/16 01:29 Levalbuterol (Xopenex 1.25MG/ 0.5ML Neb) 1.25 mg Q4H PRN INH 07/31/16 01:30 08/30/16 01:29 Menthol (Nice Estefany) 1 estefany PRN PRN PO 07/31/16 10:30 08/30/16 10:29 Metoprolol Tartrate (Lopressor Iv) 2.5 mg Q6 PRN IV 07/31/16 18:30 08/30/16 18:29 Morphine Sulfate (MoRPHine SULFATE INJ) 1 mg Q3H PRN IV 07/31/16 18:30 08/14/16 18:29 Methylprednisolone Sodium Succinate 20 mg/Syringe 0.32 ml @ 1.5 mls/min Q8H IV 08/02/16 11:00 08/30/16 18:59 08/04/16 10:32 1.5 MLS/MIN Salmeterol Xinafoate/ Fluticasone (Advair Diskus 500/50 Inh) 1 puff BID INH 08/03/16 21:00 09/02/16 20:59 08/04/16 08:41 1 PUFF Tiotropium [place] (Spiriva Handihaler Inhaler) 1 puff QAM INH 08/04/16 09:00 09/03/16 08:59 08/04/16 08:42 1 PUFF Vital Signs: Date Time Temp Pulse Resp B/P (MAP) Pulse Ox O2 Delivery O2 Flow Rate FiO2 08/04/16 08:25 36.6 71 18 116/79 (91) 96 Nasal Cannula 08/04/16 08:00 92 Nasal Cannula 2.0 08/04/16 07:19 61 18 94 Nasal Cannula 3.0 08/04/16 04:00 36.4 63 20 108/74 (85) 94 Nasal Cannula 3.0 08/04/16 04:00 Nasal Cannula 2.0 08/04/16 01:25 69 20 95 BiPAP/CPAP 08/04/16 01:24 69 95 30 08/04/16 00:00 36.5 62 22 98 Nasal Cannula 3.0 08/04/16 00:00 Nasal Cannula 2.0 08/03/16 20:00 Nasal Cannula 2.0 08/03/16 19:29 68 16 97 Nasal Cannula 3.0 08/03/16 19:16 36.5 70 20 113/73 (86) 94 Nasal Cannula 3.0 08/03/16 16:06 36.0 65 18 127/73 (91) 98 Nasal Cannula 3.0 08/03/16 16:00 100 Nasal Cannula 2.0 08/03/16 16:00 36.6 75 18 108/72 (84) 93 Nasal Cannula 2.0 08/03/16 14:25 69 18 96 Nasal Cannula 2.0 Laboratory Results: Last 24 Hours Test 08/03/16 16:40 08/03/16 20:38 08/04/16 05:52 08/04/16 06:36 Bedside Glucose 113 mg/dl 94 mg/dl 104 mg/dl White Blood Count 13.17 K/uL Red Blood Count 3.83 M/uL Hemoglobin 11.2 g/dL Hematocrit 36.9 % Mean Corpuscular Volume 96.3 fL Mean Corpuscular Hemoglobin 29.2 pg Mean Corpuscular Hemoglobin Concent 30.4 g/dl Platelet Count 203 K/uL Mean Platelet Volume 9.4 fL Neutrophils (%) (Auto) 88.9 % Lymphocytes (%) (Auto) 3.0 % Monocytes (%) (Auto) 7.9 % Eosinophils (%) (Auto) 0.0 % Basophils (%) (Auto) 0.0 % Neutrophils # (Auto) 11.70 K/uL Lymphocytes # (Auto) 0.40 K/uL Monocytes # (Auto) 1.04 K/uL Eosinophils # (Auto) 0.00 K/uL Basophils # (Auto) 0.00 K/uL RDW Standard Deviation 43.6 fL RDW Coefficient of Variation 12.3 % Immature Granulocyte % (Auto) 0.2 % Immature Granulocyte # (Auto) 0.03 K/uL
[2016-08-04 13:37] LABS: ALLEN TEST POS (POS); ARTERIAL BLOOD GAS BASE EXCESS 19.2 mEq/L (-9-1.8); ARTERIAL BLOOD GAS HCO3 48 mmol/L (19-24); ARTERIAL BLOOD GAS PO2 76 mm/Hg (80-95); ARTERIAL BLOOD GAS pH 7.36 (7.35-7.45); O2 ADMINISTRATION 2L
--- NOTE | 2016-08-04 15:30 | Progress Note ---
Internal Med Progress Note Date of Service: Aug 04, 2016. Provider Documentation: SUBJECTIVE: feeling somewhat better Ate little better had small bowel movement today afebrile no nausea sob somewhat better has some cough OBJECTIVE: Vital Signs-as noted below Exam: General-alert and oriented ENT-Normal hearing Neck-no neck masses Lungs-cta b/l no wheezing or crackles Heart-s1 and s2 heard regular no murmurs Abdomen-soft bowel sounds present nontender no distension Extremities-no edema no erythema Neuro-alert and oriented moves extremities Lab data as noted below. ASSESSMENT & PLAN: 61m WITH HX OF END STAGE COPD ON HOME OXYGEN PRESENTED WITH RESP. FAILURE FROM COPD EXACERBATION AND PNEUMONIA REQUIRING BIPA.oN STEROIDS, IV ZOSYN AND AZITHROMYCIN. PULMONARY FOLLOWING. SLOW IMPROVEMENT.PLAN FOR BRONCHOSCOPY IF NO SIGNIFICANT IMPROVEMENT PER PULMONARY. CONTINUE TO MONITOR. SEEN BY SPEECH AND RECOMMENDS: Slippery mechanical soft diet and nectar thick liquids. PATIENT IS DNR 1. Acute on chronic hypoxemic, hypercapnic respiratory failure secondary to steroid dependent chronic obstructive pulmonary disease exacerbation secondary to community-acquired pneumonia possible aspiration, px known to be at risk for aspiration post CVA no sepsis Resp acidosis, abn trop 2 to above on iv abx, iv steroids, nebs will continue bipap.pulmonary consulted on first day patient was having respiratory distress and required bipap also received a dose of iv vanco. By next day Resp status improved, abg's improved and not requiring Bipap. But very slow improvement pulmonary starting on [place] and Spiriva flutter valve and vibration vest Ipratropium stopped as started on Spiriva Iv steroids tapered to po prednisone today if no improvement pulmonary considering plan for ct scan/bronchoscopy. 2. chronic systolic heart failure secondary to non-ischemic cardiomyopathy (EF 40% TTE 2010) sp ICD patient on the dry side.On gentle fluids and will stop fluids today . Will monitor.Stable/ f/u cxr in am stopped fluids and a dose of iv Lasix given yesterday 08/03/16. Close monitor fluid status 3. PAF, px NSR, on Xarelto. On sotalol.Was in rapid afib on day of admission but ok now. Will monitor 4. history of cerebrovascular accident.. On xarelto. 5. Hypertension stable. Will monitor. 6. past tobacco abuse. 7. Anemia, hemoglobin drop from baseline. ro occult GI bleed.Hb stable 8. malnutrition (low BMI) nutrition consult SPEECH RECOMMENDS:Slippery mechanical soft diet and nectar thick liquids DVT PROPHYLAXIS on xarelto DISPOSITION to be determined monitor in tele pt/ot when more stable social service for d/c planning Vital Signs: Date Time Temp Pulse Resp B/P (MAP) Pulse Ox O2 Delivery O2 Flow Rate FiO2 08/04/16 19:23 68 18 96 Nasal Cannula 2.0 08/04/16 16:00 92 Nasal Cannula 2.0 08/04/16 15:39 36.5 66 18 114/78 (90) 99 Nasal Cannula 2.0 Humidified Oxygen 08/04/16 14:35 72 18 98 Nasal Cannula 3.0 08/04/16 12:39 36.8 65 16 121/80 (94) 99 Nasal Cannula 08/04/16 12:00 36.6 75 20 118/82 (94) 93 Nasal Cannula 2.0 08/04/16 12:00 92 Nasal Cannula 2.0 08/04/16 08:25 36.6 71 18 116/79 (91) 96 Nasal Cannula 08/04/16 08:00 92 Nasal Cannula 2.0 08/04/16 07:19 61 18 94 Nasal Cannula 3.0 08/04/16 04:00 36.4 63 20 108/74 (85) 94 Nasal Cannula 3.0 08/04/16 04:00 Nasal Cannula 2.0 08/04/16 01:25 69 20 95 BiPAP/CPAP 08/04/16 01:24 69 95 30 08/04/16 00:00 36.5 62 22 98 Nasal Cannula 3.0 08/04/16 00:00 Nasal Cannula 2.0 08/03/16 20:00 Nasal Cannula 2.0 Lab Results: Results Past 24 Hours Test 08/03/16 20:38 08/04/16 05:52 08/04/16 06:36 08/04/16 11:42 Range/Units Bedside Glucose 94 104 90 70-99 mg/dl White Blood Count 13.17 4.8-10.8 K/uL Red Blood Count 3.83 4.7-6.1 M/uL Hemoglobin 11.2 14.0-18.0 g/dL Hematocrit 36.9 42-52 % Mean Corpuscular Volume 96.3 80-100 fL Mean Corpuscular Hemoglobin 29.2 25-34 pg Mean Corpuscular Hemoglobin Concent 30.4 32-36 g/dl Platelet Count 203 130-400 K/uL Mean Platelet Volume 9.4 7.4-10.4 fL Neutrophils (%) (Auto) 88.9 % Lymphocytes (%) (Auto) 3.0 % Monocytes (%) (Auto) 7.9 % Eosinophils (%) (Auto) 0.0 % Basophils (%) (Auto) 0.0 % Neutrophils # (Auto) 11.70 1.4-6.5 K/uL Lymphocytes # (Auto) 0.40 1.2-3.4 K/uL Monocytes # (Auto) 1.04 0.11-0.59 K/uL Eosinophils # (Auto) 0.00 0-0.5 K/uL Basophils # (Auto) 0.00 0-0.2 K/uL RDW Standard Deviation 43.6 36.4-46.3 fL RDW Coefficient of Variation 12.3 11.5-14.5 % Immature Granulocyte % (Auto) 0.2 % Immature Granulocyte # (Auto) 0.03 0.00-0.02 K/uL Test 08/04/16 13:24 08/04/16 16:20 Range/Units Arterial Blood pH 7.36 7.35-7.45 Arterial Blood Partial Pressure CO2 88 35-46 mmHg Arterial Blood Partial Pressure O2 76 80-95 mm/Hg Arterial Blood HCO3 48 19-24 mmol/L Arterial Blood Oxygen Saturation 94.0 90-95 % Arterial Blood Base Excess 19.2 -9-1.8 mEq/L Arterial Blood Gas Delivery 2L Jarrod Test POS POS Bedside Glucose 125 70-99 mg/dl
[2016-08-04] MEDS: RIVAROXABAN 10 MG TAB PO SCH (16:58)
[2016-08-04] MEDS: INSULIN GLARGINE SOLOSTAR 100 UNITS/ML 3 ML PEN SC SCH (21:28)
[2016-08-04] MEDS: SIMVASTATIN 40 MG TAB PO SCH (21:31)
[2016-08-05] VITALS (14 sets, daily range): BP systolic 80–115; BP diastolic 59–82; PULSE 71–118; TEMP 36.4–36.8; O2SAT 92–100
[2016-08-05] MEDS: DOXYCYCLINE IV 100 MG in DEXTROSE 5% 100ML 100 ML IV SCH (00:37)
[2016-08-05] MEDS: LEVALBUTEROL 1.25MG/0.5ML NEB INH SCH ×2 (01:49→07:05)
[2016-08-05] MEDS: PIPERACILL/TAZOBAC IV 3.375 GM in DEXTROSE 5% 100ML IV SCH ×3 (02:36→18:18)
[2016-08-05 05:57] LABS: BASO ABS # 0.01 K/uL (0-0.2); COMPLETE YES; EOS % 0.4 %; HEMATOCRIT 42.5 % (42-52); IG% 0.4 %; LYMPH % 3.5 %; LYMPH ABS # 0.79 K/uL (1.2-3.4); MEAN CELL VOLUME 95.7 fL (80-100); MEAN CORPUSCULAR HEMOGLOBIN 30.2 pg (25-34); MEAN CORPUSCULAR HGB CONC 31.5 g/dl (32-36); MEAN PLATELET VOLUME 9.7 fL (7.4-10.4); MONO % 8.8 %; NEUT % 86.9 %; PLATELET COUNT 229 K/uL (130-400); RED BLOOD COUNT 4.44 M/uL (4.7-6.1); WHITE BLOOD COUNT 22.34 K/uL (4.8-10.8)
[2016-08-05] MEDS: METOPROLOL TARTRATE 1 MG/ML VIAL IV PRN ×2 (06:21→13:43)
[2016-08-05 06:23] LABS: CREATININE 0.49 mg/dl (0.60-1.40)
[2016-08-05] MEDS: FLUTICASONE/SALMETEROL (ADVAIR) 500/50 INH 14 PUFF INH SCH ×2 (08:02→21:10)
[2016-08-05] MEDS: TIOTROPIUM BROMIDE 5 PUFF/90 MCG INH INH SCH (08:03)
[2016-08-05] MEDS: MULTIVITAMIN TAB PO SCH (08:03)
[2016-08-05] MEDS: SOTALOL HCL 80 MG TAB PO SCH ×2 (08:04→21:11)
--- NOTE | 2016-08-05 09:22 | Progress Note ---
Medicine Progress Note Date & Time of Visit: Aug 05, 2016 at 09:05 . Subjective Developed atrial fibrillation with RVR during the night. Patient's main concern is that he is constipated. Somewhat SOB, but about the same. Occasional nonproductive cough. No chest pain. No N/V. . Objective Last 8 Hrs Date Time Temp Pulse Resp B/P (MAP) Pulse Ox O2 Delivery O2 Flow Rate FiO2 08/05/16 08:45 36.7 76 16 80/59 (66) 96 Nasal Cannula 08/05/16 08:00 92 Nasal Cannula 2.0 08/05/16 07:05 118 18 93 Nasal Cannula 2.0 08/05/16 06:21 143 08/05/16 04:18 36.6 108 18 101/70 (80) 92 Nasal Cannula 2.0 08/05/16 04:00 Nasal Cannula 2.0 08/05/16 01:49 117 18 98 Nasal Cannula 2.0 Physical Exam: General- no distress Neck- + JVD Lungs- no wheezing appreciated Heart- distant heart sounds, irregular, tachy Abdomen- + BS, soft, nontender Extremities- no pretibial edema or calf tenderness Neuro- alert . Laboratory Results: Last 24 Hours Test 08/04/16 11:42 08/04/16 13:24 08/04/16 16:20 08/04/16 20:20 Bedside Glucose 90 mg/dl 125 mg/dl 123 mg/dl Arterial Blood pH 7.36 Arterial Blood Partial Pressure CO2 88 mmHg Arterial Blood Partial Pressure O2 76 mm/Hg Arterial Blood HCO3 48 mmol/L Arterial Blood Oxygen Saturation 94.0 % Arterial Blood Base Excess 19.2 mEq/L Arterial Blood Gas Delivery 2L Jarrod Test POS Test 08/05/16 00:00 08/05/16 05:32 08/05/16 06:52 White Blood Count 22.34 K/uL Red Blood Count 4.44 M/uL Hemoglobin 13.4 g/dL Hematocrit 42.5 % Mean Corpuscular Volume 95.7 fL Mean Corpuscular Hemoglobin 30.2 pg Mean Corpuscular Hemoglobin Concent 31.5 g/dl Platelet Count 229 K/uL Mean Platelet Volume 9.7 fL Neutrophils (%) (Auto) 86.9 % Lymphocytes (%) (Auto) 3.5 % Monocytes (%) (Auto) 8.8 % Eosinophils (%) (Auto) 0.4 % Basophils (%) (Auto) 0.0 % Neutrophils # (Auto) 19.40 K/uL Lymphocytes # (Auto) 0.79 K/uL Monocytes # (Auto) 1.97 K/uL Eosinophils # (Auto) 0.09 K/uL Basophils # (Auto) 0.01 K/uL RDW Standard Deviation 43.2 fL RDW Coefficient of Variation 12.2 % Immature Granulocyte % (Auto) 0.4 % Immature Granulocyte # (Auto) 0.08 K/uL Creatinine 0.49 mg/dl Est Creatinine Clear Calc Drug Dose 118.7 ml/min Estimated GFR () 136.7 Estimated GFR (Non- 117.9 Bedside Glucose 79 mg/dl Assessment & Plan ATRIAL FIB / RVR History of paroxysmal AF, managed with sotalol and rivaroxaban. Recurrent AF last night with RVR. Lytes OK. BP relatively low. Levalbuterol dose decreased. Consult Cardiology. Continue sotalol and rivaroxaban. ACUTE ON CHRONIC HYPOXIC + HYPERCAPNIC RESPIRATORY FAILURE Dyspneic and tachypneic at time of admission, requiring > baseline O2. ABG demonstrated on 4 L demonstrated pO2 97, pCO2 103, HCO3 46, pH 7.27. Required BiPAP for ventilatory support. Acute respiratory failure secondary to COPD + pneumonia. Respiratory status improved. Now oxygenation well on 2 L NC. PNEUMONIA Afebrile. Oxygenating well on 2 L NC. Continue piperacillin / tazobactam + doxy. EXACERBATION COPD Severe O2 + steroid dependent COPD. Exacerbation secondary to pneumonia. Received IV steroids and nebs with improvement. Taper to usual maintenance dose of prednisone. HISTORY LEFT VENTRICULAR SYSTOLIC HEART FAILURE LVEF as low as 35-40% in past, currently normal. Compensated. No MARTI or ARB at this time due to relatively low BP's. Diurese PRN. VTE PROPHYLAXIS Continue rivaroxaban. DISPOSITION To be determined. Family Medicine follow-up with Dr. Callaway. . Current Inpatient Medications: Current Inpatient Medications Medications (Trade) Dose Ordered Sig/Khoi Route Start Time Stop Time Status Last Admin Dose Admin Acetaminophen (Tylenol Tab) 650 mg Q4H PRN PO 07/30/16 22:45 08/29/16 22:44 Nitroglycerin (Nitrostat Tab) 0.4 mg UD PRN SL 07/30/16 22:45 08/29/16 22:44 Doxycycline Hyclate 100 mg/ Dextrose 110 ml @ 50 mls/hr Q12H IV 07/31/16 00:00 08/07/16 00:00 08/05/16 00:37 50 MLS/HR Piperacillin Sod/ Tazobactam Sod (Consult) 1 ea UD PRN N/A 07/31/16 09:00 08/30/16 08:59 Ondansetron HCl (Zofran Inj) 4 mg Q6H PRN IV 07/30/16 22:45 08/29/16 22:44 Tramadol HCl (Ultram Tab) 25 mg Q6H PRN PO 07/30/16 22:45 08/29/16 22:44 Multivitamins (Multivitamin Tab) 1 tab DAILY PO 07/31/16 09:00 08/30/16 08:59 08/05/16 08:03 1 TAB Rivaroxaban (Xarelto Tab) 20 mg QDD PO 07/31/16 16:45 08/30/16 16:44 08/04/16 16:58 20 MG Simvastatin (Zocor Tab) 40 mg HS PO 07/31/16 21:00 08/30/16 20:59 08/04/16 21:31 40 MG Sotalol HCl (Betapace Tab) 80 mg BID PO 07/31/16 09:00 08/30/16 08:59 08/05/16 08:04 80 MG Insulin Glargine (Lantus Solostar Pen) 5 unit HS SC 07/31/16 21:00 08/30/16 20:59 08/04/16 21:28 5 UNIT Piperacillin Sod/ Tazobactam Sod 3.375 gm/Dextrose 115 ml @ 28.75 mls/ hr Q8H IV 07/31/16 02:00 08/07/16 01:59 08/05/16 02:36 28.75 MLS/HR Levalbuterol (Xopenex 1.25MG/ 0.5ML Neb) 1.25 mg Q6R INH 07/31/16 03:00 08/30/16 02:59 08/05/16 07:05 1.25 MG Levalbuterol (Xopenex 1.25MG/ 0.5ML Neb) 1.25 mg Q4H PRN INH 07/31/16 01:30 08/30/16 01:29 Menthol (Nice Estefany) 1 estefany PRN PRN PO 07/31/16 10:30 08/30/16 10:29 Metoprolol Tartrate (Lopressor Iv) 2.5 mg Q6 PRN IV 07/31/16 18:30 08/30/16 18:29 08/05/16 06:21 2.5 MG Morphine Sulfate (MoRPHine SULFATE INJ) 1 mg Q3H PRN IV 07/31/16 18:30 08/14/16 18:29 Salmeterol Xinafoate/ Fluticasone (Advair Diskus 500/50 Inh) 1 puff BID INH 08/03/16 21:00 09/02/16 20:59 08/05/16 08:02 1 PUFF Tiotropium [place] (Spiriva Handihaler Inhaler) 1 puff QAM INH 08/04/16 09:00 09/03/16 08:59 08/05/16 08:03 1 PUFF Prednisone (PredniSONE TAB) 40 mg Taper DAILY PO 08/05/16 09:00 09/07/16 08:59 08/05/16 08:03 40 MG Bisacodyl (Dulcolax Supp) 10 mg NOW ONCE AL 08/05/16 09:15 08/05/16 09:16 UNV
[2016-08-05] MEDS ORDERED: BISACODYL 10 MG SUPP PR ONE (09:30)
[2016-08-05] MEDS ORDERED: LEVALBUTEROL 0.63MG/3 ML NEB INH PRN (09:30)
[2016-08-05 09:31] LABS: POTASSIUM 4.4 mmol/L (3.5-5.1)
[2016-08-05 09:32] LABS: MAGNESIUM 1.9 mg/dl (1.8-2.4)
--- NOTE | 2016-08-05 11:11 | Pulmonology Progress Note ---
Pulmonary Progress Note Date of Service Aug 05, 2016. Attending Dr. Cecy Nguyen The patient is a 61 year old male with end-stage emphysema, on chronic O2 therapy, heart failure, h/o a-fib and CVA, on Xarelto,who presented to [facility] with acute on chronic respiratory failure due to COPD exacerbation likely secondary to LLL pneumonia on 07/30/2016 and initially required non-invasive bi-level ventilation. The patient's primary care provider is Fabian Callaway M.D.. Per sons, he was considered for a lung transplant, however, was deemed not a good candidate. Pulmonary: Dr Catrachito Bhatti - [place] - [phone] The patient today says he is much better since admission. he is nauseous and ondansetron helps him. His SOB is at baseline cough and phlegm production at baseline as well. His WBC trended from 36K to 12 K and then went back to 22 but he is on steroids. His ABG shows he has a stable chronic hypercarbia of 88. he was having a BM when I saw him and was asking when he could go home Objective GA speaks in full sentences with a raspy voice. Hypoxic cachexia lungs b/l diminished air entry HENT no JVD no LN but has temporal wasting heart irreg s1 s2 no murmurs abdomen soft non tender scaphoid +BS ext no clubbing or cyanosis changes of venous insufficiency but pedal edema has improved per patient (+1 ankle) neurologic A A O3 moves all 4 extrmities but is globally weak motor power 4/5 Assessment & Plan 61 yo male patient with end stage CPOD admitted with acute on chronic respiratory failure with AECOPD likley related to LLL pneumonia. He responded well to doxycyclin and zosyn and was started in advair, spiriva. spiriva is on board. Continue levalbuterol tapering course of prednisone and revert back to his home dose of prednisone. continue antibiotics for a total of 7 days his CO2 seems chonically elevated at 88 so it is imperative to keep SpO2 at 89- 92% but not more since he is a retainer of CO2. Defer non respiratory medical problems to primary team. He needs Low Dose CT scan for screening for lung cancer annually. But I do not think he is a candidate for any therapy. DVT prophylaxis is taken care of since he is on xarelto judicious diuresis to maintain a balance of 0 fluids ( with insensible losses that would lead to -400-500daily) Data Medications: Current Inpatient Medications Medications (Trade) Dose Ordered Sig/Khoi Route Start Time Stop Time Status Last Admin Dose Admin Acetaminophen (Tylenol Tab) 650 mg Q4H PRN PO 07/30/16 22:45 08/29/16 22:44 Nitroglycerin (Nitrostat Tab) 0.4 mg UD PRN SL 07/30/16 22:45 08/29/16 22:44 Piperacillin Sod/ Tazobactam Sod (Consult) 1 ea UD PRN N/A 07/31/16 09:00 08/30/16 08:59 Ondansetron HCl (Zofran Inj) 4 mg Q6H PRN IV 07/30/16 22:45 08/29/16 22:44 Tramadol HCl (Ultram Tab) 25 mg Q6H PRN PO 07/30/16 22:45 08/29/16 22:44 Multivitamins (Multivitamin Tab) 1 tab DAILY PO 07/31/16 09:00 08/30/16 08:59 08/05/16 08:03 1 TAB Rivaroxaban (Xarelto Tab) 20 mg QDD PO 07/31/16 16:45 08/30/16 16:44 08/04/16 16:58 20 MG Simvastatin (Zocor Tab) 40 mg HS PO 07/31/16 21:00 08/30/16 20:59 08/04/16 21:31 40 MG Sotalol HCl (Betapace Tab) 80 mg BID PO 07/31/16 09:00 08/30/16 08:59 08/05/16 08:04 80 MG Insulin Glargine (Lantus Solostar Pen) 5 unit HS SC 07/31/16 21:00 08/30/16 20:59 08/04/16 21:28 5 UNIT Piperacillin Sod/ Tazobactam Sod 3.375 gm/Dextrose 115 ml @ 28.75 mls/ hr Q8H IV 07/31/16 02:00 08/07/16 01:59 08/05/16 10:10 28.75 MLS/HR Menthol (Nice Estefany) 1 estefany PRN PRN PO 07/31/16 10:30 08/30/16 10:29 Metoprolol Tartrate (Lopressor Iv) 2.5 mg Q6 PRN IV 07/31/16 18:30 08/30/16 18:29 08/05/16 06:21 2.5 MG Morphine Sulfate (MoRPHine SULFATE INJ) 1 mg Q3H PRN IV 07/31/16 18:30 08/14/16 18:29 Salmeterol Xinafoate/ Fluticasone (Advair Diskus 500/50 Inh) 1 puff BID INH 08/03/16 21:00 09/02/16 20:59 08/05/16 08:02 1 PUFF Tiotropium [place] (Spiriva Handihaler Inhaler) 1 puff QAM INH 08/04/16 09:00 09/03/16 08:59 08/05/16 08:03 1 PUFF Prednisone (PredniSONE TAB) 40 mg Taper DAILY PO 08/05/16 09:00 09/07/16 08:59 08/05/16 08:03 40 MG Doxycycline Hyclate (Vibramycin Cap) 100 mg BID PO 08/05/16 21:00 08/07/16 23:59 Levalbuterol (Xopenex 0.63 Mg/ 3 Ml Neb) 0.63 mg Q6R INH 08/05/16 15:00 09/04/16 14:59 Levalbuterol (Xopenex 0.63 Mg/ 3 Ml Neb) 0.63 mg Q4H PRN INH 08/05/16 09:30 09/04/16 09:29 Vital Signs: Date Time Temp Pulse Resp B/P (MAP) Pulse Ox O2 Delivery O2 Flow Rate FiO2 08/05/16 08:45 36.7 76 16 80/59 (66) 96 Nasal Cannula 08/05/16 08:00 92 Nasal Cannula 2.0 08/05/16 07:05 118 18 93 Nasal Cannula 2.0 08/05/16 06:21 143 08/05/16 04:18 36.6 108 18 101/70 (80) 92 Nasal Cannula 2.0 08/05/16 04:00 Nasal Cannula 2.0 08/05/16 01:49 117 18 98 Nasal Cannula 2.0 08/04/16 23:59 Nasal Cannula 2.0 08/04/16 23:45 36.5 145 20 110/75 (87) 93 Nasal Cannula 08/04/16 22:30 118/61 (80) 08/04/16 20:00 Nasal Cannula 2.0 08/04/16 19:23 68 18 96 Nasal Cannula 2.0 08/04/16 19:14 36.8 67 18 95/53 (67) 96 Nasal Cannula 2.0 08/04/16 16:00 92 Nasal Cannula 2.0 08/04/16 15:39 36.5 66 18 114/78 (90) 99 Nasal Cannula 2.0 Humidified Oxygen 08/04/16 14:35 72 18 98 Nasal Cannula 3.0 08/04/16 12:39 36.8 65 16 121/80 (94) 99 Nasal Cannula 08/04/16 12:00 36.6 75 20 118/82 (94) 93 Nasal Cannula 2.0 08/04/16 12:00 92 Nasal Cannula 2.0 Laboratory Results: Last 24 Hours Test 08/04/16 11:42 08/04/16 13:24 08/04/16 16:20 08/04/16 20:20 Bedside Glucose 90 mg/dl 125 mg/dl 123 mg/dl Arterial Blood pH 7.36 Arterial Blood Partial Pressure CO2 88 mmHg Arterial Blood Partial Pressure O2 76 mm/Hg Arterial Blood HCO3 48 mmol/L Arterial Blood Oxygen Saturation 94.0 % Arterial Blood Base Excess 19.2 mEq/L Arterial Blood Gas Delivery 2L Jarrod Test POS Test 08/05/16 05:32 08/05/16 06:52 White Blood Count 22.34 K/uL Red Blood Count 4.44 M/uL Hemoglobin 13.4 g/dL Hematocrit 42.5 % Mean Corpuscular Volume 95.7 fL Mean Corpuscular Hemoglobin 30.2 pg Mean Corpuscular Hemoglobin Concent 31.5 g/dl Platelet Count 229 K/uL Mean Platelet Volume 9.7 fL Neutrophils (%) (Auto) 86.9 % Lymphocytes (%) (Auto) 3.5 % Monocytes (%) (Auto) 8.8 % Eosinophils (%) (Auto) 0.4 % Basophils (%) (Auto) 0.0 % Neutrophils # (Auto) 19.40 K/uL Lymphocytes # (Auto) 0.79 K/uL Monocytes # (Auto) 1.97 K/uL Eosinophils # (Auto) 0.09 K/uL Basophils # (Auto) 0.01 K/uL RDW Standard Deviation 43.2 fL RDW Coefficient of Variation 12.2 % Immature Granulocyte % (Auto) 0.4 % Immature Granulocyte # (Auto) 0.08 K/uL Potassium Level 4.4 mmol/L Creatinine 0.49 mg/dl Est Creatinine Clear Calc Drug Dose 118.7 ml/min Estimated GFR () 136.7 Estimated GFR (Non- 117.9 Magnesium Level 1.9 mg/dl Bedside Glucose 79 mg/dl
[2016-08-05] MEDS ORDERED: DIGOXIN IV 125 MCG in SYRINGE 9.5 ML IV STA (11:20)
--- NOTE | 2016-08-05 12:03 | Cardiology Consultation ---
Cardiology Consultation Date of Consultation: Aug 05, 2016 History of Present Illness Pawel Wallace is a 61 year old male seen in cardiology consultation per the request of Dr. Carroll for the evaluation of atrial fibrillation with rapid ventricular rate. The patient was initially admitted on 07/30/16 for complaint of shortness of breath and was found to have acute on chronic respiratory failure due to COPD exacerbation left lower lobe pneumonia. Initially required noninvasive BiPAP support. He has been treated with medications including IV corticosteroids and has had subtle improvement. Overnight last night, is noted to go into atrial fibrillation with rapid ventricular rate. His rates were as high as the 160 beat per minute range. His chronic home dose of sotalol had been continued. Last night he was mildly hypotensive with systolic blood pressure just under 100 mmHg and therefore dosing of AV marichuy blockers was limited due to his relative low blood pressure. He received 2.5 mg of IV metoprolol that did not significantly change his heart rates. Just prior to when I went to examine the patient this morning he had a rectal suppository placed for his complaint of constipation and he was noted to spontaneously convert from atrial fibrillation to sinus rhythm with premature atrial contractions at 10:22 AM this morning 08/05/16. During my interview with the patient he was back in sinus rhythm. He stated that he could feel his heart racing overnight last night and he felt this if things were better today. He has chronic shortness of breath and per the pulmonary progress note the patient is described as having end-stage emphysema for which she is on chronic oxygen therapy and he previously been evaluated for lung transplant was deemed to be a poor candidate. The patient's PCP is Dr Callaway of [facility]. He follows with Dr. Bobby Narayanan of [facility]. The last available progress note scanned in to [facility] is dated 07/13/13. Pertinent the patient has a history of a nonischemic cardiomyopathy was diagnosed in 2010 during which time he had a cardiac catheterization revealed normal coronary arteries. The note describes an echocardiogram performed in December 2012 which revealed moderate left ventricular systolic dysfunction with ejection fraction was reportedly 35-40% with trace to mild mitral regurgitation and trace to mild tricuspid regurgitation along with biatrial dilatation and right ventricular dilatation. 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 He apparently underwent implantation of a dual-chamber [employer] Flip AICD in 2010. He states he has a home machine and his routine device checks and has been going to his animal researcher's office once a year to have his thresholds tested. In addition to his cardiomyopathy he has a history of paroxysmal atrial fibrillation and past stroke and is on Xarelto for stroke prophylaxis. History Past Medical History: 1. Nonischemic cardiomyopathy, diagnosed in 2010, with reportedly normal coronary arteries on cardiac catheterization at that time and [place] 2. Paroxysmal atrial fibrillation, past stroke 3. Chart history of mild "Ebstein abnormality" 4. End-stage emphysema 5. Right ventricular dilatation described on the outside echocardiogram, perhaps due to his underlying lung disease 6. History of stroke Past Surgical History: Cardiac catheterization as outlined above Social History: Former smoker Review Of Systems See above for pertinent positives & negatives. A total of 10 systems reviewed and were otherwise negative. Allergies Coded Allergies: No Known Drug Allergy (Verified Allergy, Unknown, none, 07/30/16) Roflumilast (Unverified Allergy, Unknown, unknown, 07/30/16) Medications Reported Home Medications Medications Dose Route/Sig Max Daily Dose Days Date Category Multivitamin (Multivitamins) Tab 1 Tab PO DAILY 07/30/16 Reported Duoneb (Ipratropium-Albuterol) 3 Ml Nebu 1 Treatment INH Q4H 07/30/16 Reported Tudorza Pressair (Aclidinium [place]) 400 Mcg/Act Aer 1 Dose PO DIRECTED 07/30/16 Reported Advair Diskus 500/50 60 Dose (Fluticasone Prop/Salmeterol) 1 Ea Aerp 1 Puff INH BID 07/30/16 Reported Zithromax (Azithromycin) 250 Mg Tab 250 Mg PO Q2D 07/30/16 Reported Prednisone 10 Mg Tab 10 Mg PO DAILY 07/30/16 Reported Zocor (Simvastatin) 40 Mg Tab 40 Mg PO HS 06/29/12 Reported Betapace (Sotalol Hcl) 80 Mg Tab 80 Mg PO BID 06/29/12 Reported Xarelto (Rivaroxaban) 20 Mg Tab 20 Mg PO DAILY 06/29/12 Reported Cozaar (Losartan Potassium) 25 Mg Tab 25 Mg PO DAILY 06/29/12 Reported Proair Hfa (Albuterol) Aers 1-2 Puffs INH QID PRN 06/29/12 Reported Physical Exam Vital Signs (Last 8hrs): Last 8 Hrs Date Time Temp Pulse Resp B/P (MAP) Pulse Ox O2 Delivery O2 Flow Rate FiO2 08/05/16 08:45 36.7 76 16 80/59 (66) 96 Nasal Cannula 08/05/16 08:00 92 Nasal Cannula 2.0 08/05/16 07:05 118 18 93 Nasal Cannula 2.0 08/05/16 06:21 143 08/05/16 04:18 36.6 108 18 101/70 (80) 92 Nasal Cannula 2.0 08/05/16 04:00 Nasal Cannula 2.0 General Appearance: Alert and Oriented x3. Frail in appearance, chronically ill in appearance, cachectic Head: Normocephalic Atraumatic. Eyes: PERRLA, EOMI, conjunctiva and sclera clear Neck: Supple. No carotid bruits noted. No JVD. No HJD. Respiratory: Breath sounds clear to auscultation bilaterally. No w/r/r. Cardiovascular: Reg rate and rhythm. S1 and S2 noted. No murmurs, rubs, gallops. PMI non displace. Abdomen: Normal bowel sounds, soft nontender. no abdominal bruits. Extremities: No edema, no clubbing or cyanosis. distal pulses 2/4 bilaterally. Neuro: No focal deficits. Data Last Resulted 08/05/16 05:32 Red Blood Count 4.44, Mean Corpuscular Volume 95.7, Mean Corpuscular Hemoglobin 30.2, Mean Corpuscular Hemoglobin Concent 31.5, Mean Platelet Volume 9.7, Neutrophils (%) (Auto) 86.9, Lymphocytes (%) (Auto) 3.5, Monocytes (%) (Auto) 8.8, Eosinophils (%) (Auto) 0.4, Basophils (%) (Auto) 0.0, Neutrophils # (Auto) 19.40, Lymphocytes # (Auto) 0.79, Monocytes # (Auto) 1.97, Eosinophils # (Auto) 0.09, Basophils # (Auto) 0.01 Last Resulted 08/03/16 06:27 08/05/16 05:32 EKG performed on 07/30/16 1802 hrs.: Sinus rhythm with short [place] and incomplete right bundle branch block, nonspecific ST abnormality. Summary of transthoracic echocardiogram performed during this hospital stay 07/31, with report performed by Dr. Ricci: Technically difficult and limited echocardiogram with poor patient positioning and poor acoustic windows Left jugular ejection fraction is described as being normal at 55-60% with no regional wall motion abnormalities noted Initial cardiac device lead is noted in the right ventricle with mild right ventricular dilatation Trace tricuspid regurgitation is noted Moderate inferior vena cava dilatation was noted Moderate coronary hypertension was noted with calculated right ventricular systolic pressure in the 50-60 mmHg range. Assessment & Plan Impression: 61-year-old male 1. Paroxysmal atrial fibrillation, spontaneously converted to sinus rhythm with PACs, heart rates presently stable 2. Borderline low systolic blood pressure 3. Acute on chronic respiratory insufficiency with underlying severe emphysema , pneumonia 4. Prior history of nonischemic cardiomyopathy, water the reduced ejection fraction per echocardiogram 2012 that was graded as 35-40% at that time, normal LVEF with mild right ventricular dilatation noted this admission and moderate pulmonary hypertension Plan: Continue sotalol 80 mg twice a day for rhythm control. Patient has been on this as an outpatient for what appears to of been many years. Corrected QT interval was stable on his recent EKGs during this hospital stay Due to his relative low blood pressure, going to administer IV digoxin 2 doses to try to keep the patient's heart rate regulated prevent recurrence of atrial fibrillation today. Continue Xarelto for stroke prophylaxis. Treatment of pulmonary exacerbation per pulmonary medicine and hospitalist service. Patient states that he keeps up with his device checks as outpatient and I do not think we need to interrogate the [employer] Flip dual-chamber AICD at the present time. I've requested comprehensive metabolic panel and magnesium level for tomorrow . Mckinley Young D.O.
[2016-08-05] MEDS: LEVALBUTEROL 0.63MG/3 ML NEB INH SCH ×2 (14:05→19:26)
[2016-08-05] MEDS: RIVAROXABAN 10 MG TAB PO SCH (16:56)
[2016-08-05] MEDS ORDERED: DIGOXIN IV 125 MCG in SYRINGE 9.5 ML IV SCH (18:00)
[2016-08-05] MEDS: DOXYCYCLINE HYCLATE 100 MG CAP PO SCH (21:11)
[2016-08-05] MEDS: SIMVASTATIN 40 MG TAB PO SCH (21:11)
[2016-08-05] MEDS: INSULIN GLARGINE SOLOSTAR 100 UNITS/ML 3 ML PEN SC SCH (21:13)
[2016-08-06] VITALS (11 sets, daily range): BP systolic 94–118; BP diastolic 62–78; PULSE 60–68; TEMP 36.1–36.5; O2SAT 92–100
[2016-08-06] MEDS: LEVALBUTEROL 0.63MG/3 ML NEB INH SCH ×4 (02:26→19:20)
[2016-08-06 07:45] LABS: MEAN CELL VOLUME 94.9 fL (80-100); MEAN CORPUSCULAR HEMOGLOBIN 30.3 pg (25-34); MEAN CORPUSCULAR HGB CONC 31.9 g/dl (32-36); MEAN PLATELET VOLUME 9.6 fL (7.4-10.4); PLATELET COUNT 209 K/uL (130-400); WHITE BLOOD COUNT 24.37 K/uL (4.8-10.8)
[2016-08-06] MEDS: MULTIVITAMIN TAB PO SCH (07:58)
[2016-08-06] MEDS: SOTALOL HCL 80 MG TAB PO SCH ×2 (07:58→21:07)
[2016-08-06] MEDS: FLUTICASONE/SALMETEROL (ADVAIR) 500/50 INH 14 PUFF INH SCH ×2 (07:58→21:07)
[2016-08-06] MEDS: TIOTROPIUM BROMIDE 5 PUFF/90 MCG INH INH SCH (07:58)
[2016-08-06] MEDS: DOXYCYCLINE HYCLATE 100 MG CAP PO SCH ×2 (07:59→21:07)
[2016-08-06 08:13] LABS: CALCIUM 9.1 mg/dl (8.5-10.1); CREATININE 0.45 mg/dl (0.60-1.40); MAGNESIUM 2.1 mg/dl (1.8-2.4); POTASSIUM 4.1 mmol/L (3.5-5.1)
[2016-08-06 08:16] LABS: ALB/GLOB RATIO 0.9 (0.9-2)
[2016-08-06 08:30] LABS: BASO ABS # 0.01 K/uL (0-0.2); COMPLETE YES; EOS % 0.4 %; HYPOCHROMIA PRESENT; IG% 0.4 %; LYMPH % 2.8 %; LYMPH ABS # 0.68 K/uL (1.2-3.4); MONO % 5.4 %
[2016-08-06] MEDS: PIPERACILL/TAZOBAC IV 3.375 GM in DEXTROSE 5% 100ML IV SCH ×3 (10:02→18:32)
--- NOTE | 2016-08-06 11:20 | Pulmonology Progress Note ---
Pulmonary Progress Note Date of Service Aug 06, 2016. Attending Dr. Vazquez Subjective Feels improved from admission. States that he he has struggled with BIPAP but is willing to use home NIV/BiPAP. No fevers or chills. He states that although Tudorza is on his PSYCHIATRIC NURSING ASSISTANT med list, this is not well covered by his insurance. He has however been tolerating Spiriva well. Objective 61-yo male admitted to [facility] with acute on chronic hypoxic hypercarbic respiratory failure. Prior records were reviewed. PMhx includes: O2-steroid dependent end-stage pulmonary emphysema /COPD (PSYCHIATRIC NURSING ASSISTANT: tudorza, pro-air, azithromycin, advair, prednisone), CHF, non-ischemic cardiomyopathy s/p St Flip AICD, h/o CVA, h/o p.afib + AC, HLD. Former tobacco. In the ER patient was hypoxic. ABG consistent with respiratory acidosis and imaging notable for left sided infiltrate. He was treated with steroid, antibiotic, bronchodilators and BiPAP. Patient improved clinically with in- patient stay complicated by a.fib with RVR for which he was evaluated by cardiology. Echocardiogram 07/31/16: RVSP: 50-60mmHg, mild dilation of RV, trace TR, E- 60% Video Swallow 08/01/16: multiple episodes of silent aspiration wtih thin liquid barium Chest X-ray: 08/04/16: Advanced emphysema. Patchy consolidation left lung base with small left pleural effusion. AB07/30/16: 7.18/123/73-45%/45 AB07/31/16: 7.29/81/85-4LPM/43 AB08/01/16: 7.38/57/148-4LPM/34 AB08/04/16: 7.36/88/76-2LPM/48 Today: - VS: 92-98% - 2LPM, no BIPAP overnight - Afebrile, BPs soft - 30mg prednisone, Spiriva + Advair 500/50 - Xarelto: 20mg - Pip-tazo #7, doxycycline #6 - WBC/Hgb/Hct/Plts: 24.37/11.8/37/209 - Sputum: Mod normal [place], BC: NGTD Physical Exam: Constitutional: Chronically ill appearing cachectic male sleeping in hospital bed -mouth open. No acute distress. Easily aroused by voice HEENT: dry mucous membranes. Edentulous. No oral lesions or exudate Respiratory: Increased AP chest diameter with evidence of hyperinflation. Expiratory wheeze most pronounced on the left CV: Diminished S1, S2 with difficulty assessing rhythm. Warm and perfused periphreally GI: Soft, active bowel sounds MSK/Extremities: moving and developed symmetrically. No peripheral edema of the LEs. Neurologic: Alert, answers questions appropriately. Assessment & Plan 61 yo male patient with end stage CPOD admitted with acute on chronic respiratory failure and LLL pneumonia: - Continue Spiriva and Advair with PRN levalbuterol in the setting of a.fib with RVR - Discharged on Spiriva in place of Tudorza and will need pulmonary f/u within 1 -2 weeks of discharge - Chronic CO2 retention - he would be appropriate for consideration of Trilogy vs BiPAP and out patient pulmonary rehab - Ok to discontinue antibiotic 08/07/16 - Will require CXR in 6-weeks as outpatient to follow resolution of infiltrate - 2-step prior to discharge Patient reviewed and plan agreed with. Data Medications: Current Inpatient Medications Medications (Trade) Dose Ordered Sig/Khoi Route Start Time Stop Time Status Last Admin Dose Admin Acetaminophen (Tylenol Tab) 650 mg Q4H PRN PO 07/30/16 22:45 08/29/16 22:44 Nitroglycerin (Nitrostat Tab) 0.4 mg UD PRN SL 07/30/16 22:45 08/29/16 22:44 Piperacillin Sod/ Tazobactam Sod (Consult) 1 ea UD PRN N/A 07/31/16 09:00 08/30/16 08:59 Ondansetron HCl (Zofran Inj) 4 mg Q6H PRN IV 07/30/16 22:45 08/29/16 22:44 Tramadol HCl (Ultram Tab) 25 mg Q6H PRN PO 07/30/16 22:45 08/29/16 22:44 08/06/16 08:01 25 MG Multivitamins (Multivitamin Tab) 1 tab DAILY PO 07/31/16 09:00 08/30/16 08:59 08/06/16 07:58 1 TAB Rivaroxaban (Xarelto Tab) 20 mg QDD PO 07/31/16 16:45 08/30/16 16:44 08/05/16 16:56 20 MG Simvastatin (Zocor Tab) 40 mg HS PO 07/31/16 21:00 08/30/16 20:59 08/05/16 21:11 40 MG Sotalol HCl (Betapace Tab) 80 mg BID PO 07/31/16 09:00 08/30/16 08:59 08/06/16 07:58 80 MG Insulin Glargine (Lantus Solostar Pen) 5 unit HS SC 07/31/16 21:00 08/30/16 20:59 08/05/16 21:13 5 UNIT Piperacillin Sod/ Tazobactam Sod 3.375 gm/Dextrose 115 ml @ 28.75 mls/ hr Q8H IV 07/31/16 02:00 08/07/16 01:59 08/06/16 10:03 28.75 MLS/HR Menthol (Nice Estefany) 1 estefany PRN PRN PO 07/31/16 10:30 08/30/16 10:29 Metoprolol Tartrate (Lopressor Iv) 2.5 mg Q6 PRN IV 07/31/16 18:30 08/30/16 18:29 08/05/16 13:43 2.5 MG Morphine Sulfate (MoRPHine SULFATE INJ) 1 mg Q3H PRN IV 07/31/16 18:30 08/14/16 18:29 Salmeterol Xinafoate/ Fluticasone (Advair Diskus 500/50 Inh) 1 puff BID INH 08/03/16 21:00 09/02/16 20:59 08/06/16 07:58 1 PUFF Tiotropium [place] (Spiriva Handihaler Inhaler) 1 puff QAM INH 08/04/16 09:00 09/03/16 08:59 08/06/16 07:58 1 PUFF Prednisone (PredniSONE TAB) 30 mg Taper DAILY PO 08/05/16 09:00 09/07/16 08:59 08/06/16 07:58 30 MG Doxycycline Hyclate (Vibramycin Cap) 100 mg BID PO 08/05/16 21:00 08/07/16 23:59 08/06/16 07:59 100 MG Levalbuterol (Xopenex 0.63 Mg/ 3 Ml Neb) 0.63 mg Q6R INH 08/05/16 15:00 09/04/16 14:59 08/06/16 07:17 0.63 MG Levalbuterol (Xopenex 0.63 Mg/ 3 Ml Neb) 0.63 mg Q4H PRN INH 08/05/16 09:30 09/04/16 09:29 Vital Signs: Date Time Temp Pulse Resp B/P (MAP) Pulse Ox O2 Delivery O2 Flow Rate FiO2 08/06/16 08:00 92 Nasal Cannula 2.0 08/06/16 07:17 67 18 98 Nasal Cannula 2.0 08/06/16 07:02 36.4 64 20 95/71 (79) 92 Nasal Cannula 2.0 08/06/16 04:27 36.5 68 18 101/71 (81) 98 Nasal Cannula 2.0 08/06/16 04:00 Nasal Cannula 2.0 08/05/16 23:59 Nasal Cannula 2.0 08/05/16 23:46 36.5 76 22 106/61 (76) 100 CPAP 08/05/16 22:24 76 100 30 08/05/16 20:00 Nasal Cannula 2.0 08/05/16 19:55 36.8 76 18 112/82 (92) 97 Nasal Cannula 2.0 08/05/16 19:26 76 18 97 Nasal Cannula 2.0 08/05/16 18:17 82 08/05/16 16:00 92 Nasal Cannula 2.0 08/05/16 15:26 36.4 77 20 102/77 (85) 95 2.0 08/05/16 14:05 102 18 98 Nasal Cannula 2.0 08/05/16 13:43 140 08/05/16 12:23 36.5 71 115/81 (92) 95 Nasal Cannula 2.0 08/05/16 12:00 92 Nasal Cannula 2.0 08/05/16 11:38 75 Laboratory Results: Last 24 Hours Test 08/05/16 11:45 08/05/16 20:17 08/06/16 06:52 08/06/16 06:54 Bedside Glucose 80 mg/dl 71 mg/dl 63 mg/dl White Blood Count 24.37 K/uL Red Blood Count 3.90 M/uL Hemoglobin 11.8 g/dL Hematocrit 37.0 % Mean Corpuscular Volume 94.9 fL Mean Corpuscular Hemoglobin 30.3 pg Mean Corpuscular Hemoglobin Concent 31.9 g/dl Platelet Count 209 K/uL Mean Platelet Volume 9.6 fL Neutrophils (%) (Auto) 91.0 % Lymphocytes (%) (Auto) 2.8 % Monocytes (%) (Auto) 5.4 % Eosinophils (%) (Auto) 0.4 % Basophils (%) (Auto) 0.0 % Neutrophils # (Auto) 22.18 K/uL Lymphocytes # (Auto) 0.68 K/uL Monocytes # (Auto) 1.31 K/uL Eosinophils # (Auto) 0.09 K/uL Basophils # (Auto) 0.01 K/uL RDW Standard Deviation 42.5 fL RDW Coefficient of Variation 12.4 % Immature Granulocyte % (Auto) 0.4 % Immature Granulocyte # (Auto) 0.10 K/uL Hypochromasia PRESENT Sodium Level 131 mmol/L Potassium Level 4.1 mmol/L Chloride Level 84 mmol/L Carbon Dioxide Level 45 mmol/L Anion Gap 2.0 mmol/L Blood Urea Nitrogen 12 mg/dl Creatinine 0.45 mg/dl Est Creatinine Clear Calc Drug Dose 130.4 ml/min Estimated GFR () 141.6 Estimated GFR (Non- 122.1 BUN/Creatinine Ratio 26.0 Random Glucose 73 mg/dl Calcium Level 9.1 mg/dl Magnesium Level 2.1 mg/dl Total Bilirubin 1.3 mg/dl Aspartate Amino Transf (AST/SGOT) 20 U/L Alanine Aminotransferase (ALT/SGPT) 19 U/L Alkaline Phosphatase 74 U/L Total Protein 5.1 gm/dl Albumin 2.4 gm/dl Globulin 2.7 gm/dl Albumin/Globulin Ratio 0.9 Test 08/06/16 08:45 Bedside Glucose 88 mg/dl
--- NOTE | 2016-08-06 11:47 | Cardiology Follow-Up ---
Subjective Subjective Date of Service: Aug 06, 2016. Pt evaluation today including: conversation w/ patient, physical exam, chart review, lab review, review of studies, review of inpatient medication list Additional Details: Pt seen and examined, states that he's feeling ok. States that breathing has improved but not yet back to baseline. Has had intermittent palpitations overnight but this is not new for him. Not sure if he had palpitations at the time of his run of afib last PM. Tele reviewed: currently sinus, frequent PAC's overnight and last sustained run of afib last PM. Problem List Medical Problems: (1) Change in mental status Status: Acute (2) Pneumonia Status: Acute (3) Respiratory acidosis Status: Acute Review of Systems Respiratory: + shortness of breath, No see HPI, No cough, No sputum, No wheezing, No dyspnea on exertion, No dyspnea at rest, No hemoptysis, No problem reported Cardiac: + palpitations, No see HPI, No chest pain, No orthopnea, No PND, No edema, No claudication, No problem reported Objective Vital Signs Last Vital Signs Documentation Date Time Temp Pulse Resp B/P (MAP) Pulse Ox O2 Delivery O2 Flow Rate FiO2 08/06/16 08:00 92 Nasal Cannula 2.0 08/06/16 07:17 67 18 08/06/16 07:02 36.4 95/71 (79) 08/05/16 22:24 30 Physical Exam: General Appearance: WD/WN, no apparent distress Eyes: bilateral eyes normal inspection, bilateral eyes PERRL, bilateral eyes EOMI ENT: normal ENT inspection, hearing grossly normal, pharynx normal Neck: supple, no adenopathy, thyroid normal, no JVD, no carotid bruits, trachea midline Respiratory/Chest: chest non-tender, no respiratory distress, no accessory muscle use, + rhonchi Cardiovascular: regular rate, rhythm, + pertinent finding (regular but distant , unable to appreciate murmurs, rubs or gallops) Abdomen: normal bowel sounds, non tender, soft, no organomegaly, no pulsatile mass Extremities: normal inspection, no pedal edema, no calf tenderness Neurologic/Psychiatric: senior database engineer II-XII nml as tested, no motor/sensory deficits, alert, normal mood/affect, oriented x 3 Skin: normal color, warm/dry, no rash Lymphatic: no adenopathy Assessment and Plan 1. paroxysmal atrial fibrillation episode last pm now sinus with PAC's to be expected in the setting of pneumonia and copd exacerbation received dig load on 08/05, rates now stable in 60's,will hold off further dig for now cont sotalol, doxycycline not a known agent that would prolong the QT follow daily EKG's cont Xarelto anticoagulation
[2016-08-06] MEDS ORDERED: POLYETHYLENE (MIRALAX) 17 GM PACK PO ONE (13:34)
--- NOTE | 2016-08-06 15:38 | DIAGNOSTIC IMAGING REPORT ---
CHEST 2 VIEWS ROUTINE CLINICAL HISTORY: f/u pneumonia pneumonia COMPARISON STUDY: 08/04/2016 FINDINGS: Infiltrate left base slightly improved from the prior exam. Unchanging blunting left lateral calcific angle. Moderate emphysematous change throughout the remaining lungs. Permanent bipolar cardiac pacemaker/fibrillator. IMPRESSION: Mild improvement of left basilar parenchymal infiltrate. Moderate residual. Follow-up to complete resolution is suggested. Electronically signed by: Sukh Barron M.D. 08/06/2016 3:37 PM Dictated Date/Time: 08/06/2016 3:36 PM
[2016-08-06] MEDS: RIVAROXABAN 10 MG TAB PO SCH (16:23)
[2016-08-06] MEDS: NYSTATIN SUSP 500,000 U/5 ML UDC PO SCH ×2 (16:23→21:07)
[2016-08-06] MEDS: SIMVASTATIN 40 MG TAB PO SCH (21:07)
[2016-08-06] MEDS: POLYETHYLENE (MIRALAX) 17 GM PACK PO SCH (21:08)
[2016-08-06] MEDS: INSULIN GLARGINE SOLOSTAR 100 UNITS/ML 3 ML PEN SC SCH (21:10)
--- NOTE | 2016-08-06 22:20 | Progress Note ---
Medicine Progress Note Date & Time of Visit: Aug 06, 2016 at 13:10 . Subjective No fever. Tires easily. Occasional cough, nonproductive. Dyspneic on exertion. No chest pain. No nausea or vomiting. Bowel movements yesterday after receiving Dulcolax suppository. Has condom urinary catheter. . Objective Last 8 Hrs Date Time Temp Pulse Resp B/P (MAP) Pulse Ox O2 Delivery O2 Flow Rate FiO2 08/06/16 20:00 Nasal Cannula 2.0 08/06/16 19:43 36.5 64 22 118/78 (91) 100 Nasal Cannula 2.0 08/06/16 19:20 60 18 98 Nasal Cannula 2.0 08/06/16 16:00 98 Nasal Cannula 2.0 08/06/16 16:00 36.5 63 18 94/64 (74) 98 Nasal Cannula 2.0 Physical Exam: General- no distress ENT- oral thrush Neck- + JVD Lungs- distant breath sounds; rales left base Heart- distant heart sounds, regular, no murmur or gallop appreciated Abdomen- + BS, soft, nontender Extremities- edema both upper extremities, L > R; no pretibial edema or calf tenderness; feet cool; capillary refill toes about 2 sec Neuro- alert . Laboratory Results: Last 24 Hours Test 08/06/16 06:52 08/06/16 06:54 08/06/16 08:45 08/06/16 16:26 Bedside Glucose 63 mg/dl 88 mg/dl 82 mg/dl White Blood Count 24.37 K/uL Red Blood Count 3.90 M/uL Hemoglobin 11.8 g/dL Hematocrit 37.0 % Mean Corpuscular Volume 94.9 fL Mean Corpuscular Hemoglobin 30.3 pg Mean Corpuscular Hemoglobin Concent 31.9 g/dl Platelet Count 209 K/uL Mean Platelet Volume 9.6 fL Neutrophils (%) (Auto) 91.0 % Lymphocytes (%) (Auto) 2.8 % Monocytes (%) (Auto) 5.4 % Eosinophils (%) (Auto) 0.4 % Basophils (%) (Auto) 0.0 % Neutrophils # (Auto) 22.18 K/uL Lymphocytes # (Auto) 0.68 K/uL Monocytes # (Auto) 1.31 K/uL Eosinophils # (Auto) 0.09 K/uL Basophils # (Auto) 0.01 K/uL RDW Standard Deviation 42.5 fL RDW Coefficient of Variation 12.4 % Immature Granulocyte % (Auto) 0.4 % Immature Granulocyte # (Auto) 0.10 K/uL Hypochromasia PRESENT Sodium Level 131 mmol/L Potassium Level 4.1 mmol/L Chloride Level 84 mmol/L Carbon Dioxide Level 45 mmol/L Anion Gap 2.0 mmol/L Blood Urea Nitrogen 12 mg/dl Creatinine 0.45 mg/dl Est Creatinine Clear Calc Drug Dose 130.4 ml/min Estimated GFR () 141.6 Estimated GFR (Non- 122.1 BUN/Creatinine Ratio 26.0 Random Glucose 73 mg/dl Calcium Level 9.1 mg/dl Magnesium Level 2.1 mg/dl Total Bilirubin 1.3 mg/dl Aspartate Amino Transf (AST/SGOT) 20 U/L Alanine Aminotransferase (ALT/SGPT) 19 U/L Alkaline Phosphatase 74 U/L Total Protein 5.1 gm/dl Albumin 2.4 gm/dl Globulin 2.7 gm/dl Albumin/Globulin Ratio 0.9 Test 08/06/16 21:00 Bedside Glucose 88 mg/dl Assessment & Plan ACUTE ON CHRONIC HYPOXIC + HYPERCAPNIC RESPIRATORY FAILURE Dyspneic and tachypneic at time of admission, requiring > baseline O2. ABG demonstrated on 4 L demonstrated pO2 97, pCO2 103, HCO3 46, pH 7.27. Required BiPAP for ventilatory support. Acute respiratory failure secondary to COPD + pneumonia. Respiratory status improved. Now oxygenating well on 2 L NC. PNEUMONIA Afebrile. Oxygenating well on 2 L NC. Continue piperacillin / tazobactam + doxycycline to complete 7 day course of therapy. Will need follow-up chest x-ray in 4-6 weeks. EXACERBATION COPD Severe O2 + steroid dependent COPD. Exacerbation secondary to pneumonia. Received IV steroids and nebs with improvement. Taper to usual maintenance dose of prednisone. HISTORY LEFT VENTRICULAR SYSTOLIC HEART FAILURE LVEF as low as 35-40% in past, currently normal. Compensated. No MARTI or ARB at this time due to relatively low BP's. Check follow-up chest x-ray. Diurese PRN. PAROXYSMAL ATRIAL FIB History of paroxysmal AF, managed with sotalol and rivaroxaban. Developed recurrent atrial fibrillation evening of 08/04. Lytes were OK. Levalbuterol dose decreased. Cardiology consulted. Converted to normal sinus rhythm (after administration of bisacodyl suppository) . Received digoxin. NSR today. Continue sotalol and rivaroxaban. LEUKOCYTOSIS White count on admission was 19,450. The next morning he was 36,800 after receiving IV steroids. White count fell to 13,170 by 08/04. WBC today = 24,370. Afebrile and clinically improved. Check follow-up chest x-ray to assess for empyema or other complications of pneumonia. Check UA. Several bowel movements after Dulcolax suppository for constipation; doubt C. difficile. Follow. VTE PROPHYLAXIS Continue rivaroxaban. DISPOSITION To be determined. May need skilled care or rehabilitation. Family Medicine follow-up with Dr. Callaway. ADDENDUM: visiting this evening and given update. . Current Inpatient Medications: Current Inpatient Medications Medications (Trade) Dose Ordered Sig/Khoi Route Start Time Stop Time Status Last Admin Dose Admin Acetaminophen (Tylenol Tab) 650 mg Q4H PRN PO 07/30/16 22:45 08/29/16 22:44 Nitroglycerin (Nitrostat Tab) 0.4 mg UD PRN SL 07/30/16 22:45 08/29/16 22:44 Piperacillin Sod/ Tazobactam Sod (Consult) 1 ea UD PRN N/A 07/31/16 09:00 08/30/16 08:59 Ondansetron HCl (Zofran Inj) 4 mg Q6H PRN IV 07/30/16 22:45 08/29/16 22:44 Tramadol HCl (Ultram Tab) 25 mg Q6H PRN PO 07/30/16 22:45 08/29/16 22:44 08/06/16 08:01 25 MG Multivitamins (Multivitamin Tab) 1 tab DAILY PO 07/31/16 09:00 08/30/16 08:59 08/06/16 07:58 1 TAB Rivaroxaban (Xarelto Tab) 20 mg QDD PO 07/31/16 16:45 08/30/16 16:44 08/06/16 16:23 20 MG Simvastatin (Zocor Tab) 40 mg HS PO 07/31/16 21:00 08/30/16 20:59 08/06/16 21:07 40 MG Sotalol HCl (Betapace Tab) 80 mg BID PO 07/31/16 09:00 08/30/16 08:59 08/06/16 21:07 80 MG Insulin Glargine (Lantus Solostar Pen) 5 unit HS SC 07/31/16 21:00 08/30/16 20:59 08/06/16 21:10 5 UNIT Piperacillin Sod/ Tazobactam Sod 3.375 gm/Dextrose 115 ml @ 28.75 mls/ hr Q8H IV 07/31/16 02:00 08/07/16 01:59 08/06/16 18:32 28.75 MLS/HR Menthol (Nice Thai) 1 thai PRN PRN PO 07/31/16 10:30 08/30/16 10:29 Metoprolol Tartrate (Lopressor Iv) 2.5 mg Q6 PRN IV 07/31/16 18:30 08/30/16 18:29 08/05/16 13:43 2.5 MG Morphine Sulfate (MoRPHine SULFATE INJ) 1 mg Q3H PRN IV 07/31/16 18:30 08/14/16 18:29 Salmeterol Xinafoate/ Fluticasone (Advair Diskus 500/50 Inh) 1 puff BID INH 08/03/16 21:00 09/02/16 20:59 08/06/16 21:07 1 PUFF Tiotropium [place] (Spiriva Handihaler Inhaler) 1 puff QAM INH 08/04/16 09:00 09/03/16 08:59 08/06/16 07:58 1 PUFF Prednisone (PredniSONE TAB) 30 mg Taper DAILY PO 08/05/16 09:00 09/07/16 08:59 08/06/16 07:58 30 MG Doxycycline Hyclate (Vibramycin Cap) 100 mg BID PO 08/05/16 21:00 08/07/16 23:59 08/06/16 21:07 100 MG Levalbuterol (Xopenex 0.63 Mg/ 3 Ml Neb) 0.63 mg Q6R INH 08/05/16 15:00 09/04/16 14:59 08/06/16 19:20 0.63 MG Levalbuterol (Xopenex 0.63 Mg/ 3 Ml Neb) 0.63 mg Q4H PRN INH 08/05/16 09:30 09/04/16 09:29 Nystatin (Mycostatin Susp) 5 ml QID PO 08/06/16 17:00 08/16/16 16:59 08/06/16 21:07 5 ML Polyethylene (Miralax Powder Packet) 17 gm BID PO 08/06/16 21:00 09/05/16 20:59 08/06/16 21:08 17 GM
[2016-08-07] VITALS (12 sets, daily range): BP systolic 101–119; BP diastolic 68–80; PULSE 60–91; TEMP 35.8–36.8; O2SAT 96–100; Ht 177.8 cm; Wt 51.8 kg
[2016-08-07] MEDS: LEVALBUTEROL 0.63MG/3 ML NEB INH SCH ×4 (01:36→19:35)
[2016-08-07 04:04] LABS: URINE APPEARANCE CLOUDY (CLEAR); URINE BILIRUBIN NEG (NEG); URINE COLOR DK YELLOW; URINE NITRITE NEG (NEG); URINE SPECIFIC GRAVITY 1.025 (1.000-1.030); UROBILINOGEN NEG (NEG); ZZUR CULT IF INDIC CLEAN CATCH NO
[2016-08-07 04:11] LABS: MANUAL MICROSCOPIC REQUIRED? NO; REVIEW REQ? NO
[2016-08-07 07:26] LABS: COMPLETE YES; EOS % 1.3 %; HEMATOCRIT 38.6 % (42-52); IG% 0.3 %; LYMPH % 4.3 %; LYMPH ABS # 0.65 K/uL (1.2-3.4); MEAN CELL VOLUME 94.6 fL (80-100); MEAN CORPUSCULAR HEMOGLOBIN 29.2 pg (25-34); MEAN CORPUSCULAR HGB CONC 30.8 g/dl (32-36); MEAN PLATELET VOLUME 9.5 fL (7.4-10.4); MONO % 5.5 %; NEUT % 88.6 %; PLATELET COUNT 203 K/uL (130-400); RED BLOOD COUNT 4.08 M/uL (4.7-6.1); WHITE BLOOD COUNT 15.15 K/uL (4.8-10.8)
[2016-08-07] MEDS: POLYETHYLENE (MIRALAX) 17 GM PACK PO SCH ×2 (07:46→21:52)
[2016-08-07] MEDS: TIOTROPIUM BROMIDE 5 PUFF/90 MCG INH INH SCH (07:48)
[2016-08-07] MEDS: FLUTICASONE/SALMETEROL (ADVAIR) 500/50 INH 14 PUFF INH SCH ×2 (07:48→21:50)
[2016-08-07] MEDS: DOXYCYCLINE HYCLATE 100 MG CAP PO SCH ×2 (07:49→21:51)
[2016-08-07] MEDS: MULTIVITAMIN TAB PO SCH (07:49)
[2016-08-07] MEDS: NYSTATIN SUSP 500,000 U/5 ML UDC PO SCH ×4 (07:49→21:51)
[2016-08-07] MEDS: SOTALOL HCL 80 MG TAB PO SCH ×2 (07:53→21:50)
[2016-08-07 07:59] LABS: BLOOD UREA NITROGEN 14 mg/dl (7-18); BUN/CREATININE RATIO 38.7 (10-20); CHLORIDE 84 mmol/L (98-107); CREATININE 0.35 mg/dl (0.60-1.40); GLUCOSE 64 mg/dl (70-99); POTASSIUM 4.3 mmol/L (3.5-5.1); SODIUM 129 mmol/L (136-145)
[2016-08-07 08:19] LABS: CARBON DIOXIDE 45 mmol/L (21-32)
--- NOTE | 2016-08-07 10:46 | Cardiology Follow-Up ---
Subjective Subjective Date of Service: Aug 07, 2016. Pt evaluation today including: conversation w/ patient, physical exam, chart review, lab review, review of studies, review of inpatient medication list Additional Details: Pt seen and examined, states that his breathing is significantly improved from admission but not yet back to baseline. Still with occasional palpitations. Denies cp, lightheadedness or dizziness. Tele reviewed: sinus with occasional PAC's and biv pacing, no sustained runs of atrial fibrillation. Problem List Medical Problems: (1) Change in mental status Status: Acute (2) Pneumonia Status: Acute (3) Respiratory acidosis Status: Acute Review of Systems Respiratory: + shortness of breath, No see HPI, No cough, No sputum, No wheezing, No dyspnea on exertion, No dyspnea at rest, No hemoptysis, No problem reported Cardiac: + palpitations, No see HPI, No chest pain, No orthopnea, No PND, No edema, No claudication, No problem reported Objective Vital Signs Last Vital Signs Documentation Date Time Temp Pulse Resp B/P (MAP) Pulse Ox O2 Delivery O2 Flow Rate FiO2 08/07/16 08:16 35.8 62 18 119/80 (93) 100 Nasal Cannula 2.0 08/06/16 22:27 30 Physical Exam: General Appearance: WD/WN, no apparent distress Eyes: bilateral eyes normal inspection, bilateral eyes PERRL, bilateral eyes EOMI ENT: normal ENT inspection, hearing grossly normal, pharynx normal Neck: supple, no adenopathy, thyroid normal, no JVD, no carotid bruits, trachea midline Respiratory/Chest: chest non-tender, no respiratory distress, no accessory muscle use, + rhonchi Cardiovascular: regular rate, rhythm, + pertinent finding (regular but distant , unable to appreciate murmurs, rubs or gallops) Abdomen: normal bowel sounds, non tender, soft, no organomegaly, no pulsatile mass Extremities: normal inspection, no pedal edema, no calf tenderness 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 paroxysmal atrial fibrillation no further sustained runs to be expected in the setting of pneumonia and copd exacerbation received dig load on 08/05, rates now stable in 60's,will hold off further dig for now cont sotalol, doxycycline not a known agent that would prolong the QT follow daily EKG's cont Xarelto anticoagulation ok to d/c tele or from hospital from cardiac standpoint patient requesting help with placement upon discharge
--- NOTE | 2016-08-07 11:19 | Pulmonology Progress Note ---
Pulmonary Progress Note Date of Service Aug 07, 2016. Attending Dr. Vazquez Subjective Continues to report intermittent dyspnea. Cough productive of yellow sputum this AM with some respiratory relief. Reports he is using BiPAP intermittently throughout the night stating "only when I need it"m - no evidence however of consistent use per EMR. Reports some discomfort with the mask. Worried about placement as he states that his cannot care for him at home. Objective 61-yo male admitted to [facility] with acute on chronic hypoxic hypercarbic respiratory failure. Prior records were reviewed. 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 Former tobacco. In the ER patient was hypoxic. ABG consistent with respiratory acidosis and imaging notable for left sided infiltrate. He was treated with steroid, antibiotic, bronchodilators and BiPAP. Patient improved clinically with in- patient stay complicated by a.fib with RVR for which he is followed by cardiology. Echocardiogram 07/31/16: RVSP: 50-60mmHg, mild dilation of RV, trace TR, E- 60% Video Swallow 08/01/16: multiple episodes of silent aspiration with thin liquid barium Chest X-ray: 08/04/16: Advanced emphysema. Patchy consolidation left lung base with small left pleural effusion. AB07/30/16: 7.18/123/73-45%/45 AB07/31/16: 7.29/81/85-4LPM/43 AB08/01/16: 7.38/57/148-4LPM/34 AB08/04/16: 7.36/88/76-2LPM/48 Today: - VS: 96-100% - 2LPM, inconsistent BiPAP use - HD stable - 20mg prednisone, Spiriva + Advair 500/50 - Xarelto: 20mg - Pip-tazo #9, doxycycline #7 Physical Exam: Constitutional: Chronically ill appearing cachectic male lying in hospital bed. No acute distress. HEENT: No oral lesions or exudate Respiratory: Increased AP chest diameter. BS diminished throughout. No wheeze. CV: Diminished S1, S2 with difficulty assessing rhythm. Warm and perfused peripherally GI: Soft, active bowel sounds Integumentary: Ecchymosis - no hematoma of the left anterior rist MSK/Extremities: moving and developed symmetrically. Bilateral UE emema Left > right. No peripheral edema of the LEs. Neurologic: Alert, answers questions appropriately. Assessment & Plan 61 yo male patient with end stage COPD admitted with acute on chronic respiratory failure and LLL pneumonia: - Continue Spiriva and Advair with PRN levalbuterol in the setting of a.fib with RVR - Chronic CO2 retention - appropriate for Trilogy vs BiPAP and will continue to require continuing education and encouragement wtih this idea - Doxycycline + pip-tazo course now complete: left sided infiltrate improving and will need outpatient CXR in 5-6 weeks for resolution - 2-step prior to discharge Patient and case reviewed and plan agreed with. Data Medications: Current Inpatient Medications Medications (Trade) Dose Ordered Sig/Khoi Route Start Time Stop Time Status Last Admin Dose Admin Acetaminophen (Tylenol Tab) 650 mg Q4H PRN PO 07/30/16 22:45 08/29/16 22:44 Nitroglycerin (Nitrostat Tab) 0.4 mg UD PRN SL 07/30/16 22:45 08/29/16 22:44 Piperacillin Sod/ Tazobactam Sod (Consult) 1 ea UD PRN N/A 07/31/16 09:00 08/30/16 08:59 Ondansetron HCl (Zofran Inj) 4 mg Q6H PRN IV 07/30/16 22:45 08/29/16 22:44 Tramadol HCl (Ultram Tab) 25 mg Q6H PRN PO 07/30/16 22:45 08/29/16 22:44 08/06/16 08:01 25 MG Multivitamins (Multivitamin Tab) 1 tab DAILY PO 07/31/16 09:00 08/30/16 08:59 08/07/16 07:49 1 TAB Rivaroxaban (Xarelto Tab) 20 mg QDD PO 07/31/16 16:45 08/30/16 16:44 08/06/16 16:23 20 MG Simvastatin (Zocor Tab) 40 mg HS PO 07/31/16 21:00 08/30/16 20:59 08/06/16 21:07 40 MG Sotalol HCl (Betapace Tab) 80 mg BID PO 07/31/16 09:00 08/30/16 08:59 08/07/16 07:53 80 MG Insulin Glargine (Lantus Solostar Pen) 5 unit HS SC 07/31/16 21:00 08/30/16 20:59 08/06/16 21:10 5 UNIT Menthol (Nice Estefany) 1 estefany PRN PRN PO 07/31/16 10:30 08/30/16 10:29 Metoprolol Tartrate (Lopressor Iv) 2.5 mg Q6 PRN IV 07/31/16 18:30 08/30/16 18:29 08/05/16 13:43 2.5 MG Morphine Sulfate (MoRPHine SULFATE INJ) 1 mg Q3H PRN IV 07/31/16 18:30 08/14/16 18:29 Salmeterol Xinafoate/ Fluticasone (Advair Diskus 500/50 Inh) 1 puff BID INH 08/03/16 21:00 09/02/16 20:59 08/07/16 07:48 1 PUFF Tiotropium [place] (Spiriva Handihaler Inhaler) 1 puff QAM INH 08/04/16 09:00 09/03/16 08:59 08/07/16 07:48 1 PUFF Prednisone (PredniSONE TAB) 20 mg Taper DAILY PO 08/05/16 09:00 09/07/16 08:59 08/07/16 07:49 20 MG Doxycycline Hyclate (Vibramycin Cap) 100 mg BID PO 08/05/16 21:00 08/07/16 23:59 08/07/16 07:49 100 MG Levalbuterol (Xopenex 0.63 Mg/ 3 Ml Neb) 0.63 mg Q6R INH 08/05/16 15:00 09/04/16 14:59 08/07/16 07:45 0.63 MG Levalbuterol (Xopenex 0.63 Mg/ 3 Ml Neb) 0.63 mg Q4H PRN INH 08/05/16 09:30 09/04/16 09:29 Nystatin (Mycostatin Susp) 5 ml QID PO 08/06/16 17:00 08/16/16 16:59 08/07/16 07:49 5 ML Polyethylene (Miralax Powder Packet) 17 gm BID PO 08/06/16 21:00 09/05/16 20:59 08/06/16 21:08 17 GM Vital Signs: Date Time Temp Pulse Resp B/P (MAP) Pulse Ox O2 Delivery O2 Flow Rate FiO2 08/07/16 08:16 35.8 62 18 119/80 (93) 100 Nasal Cannula 2.0 08/07/16 08:10 Nasal Cannula 2.0 08/07/16 07:46 63 18 96 Nasal Cannula 2.0 08/07/16 04:00 Nasal Cannula 2.0 08/07/16 03:18 36.4 62 19 101/70 (80) 100 Nasal Cannula 2.0 08/07/16 01:36 60 18 98 Nasal Cannula 2.0 08/06/16 23:59 Nasal Cannula 2.0 08/06/16 23:48 36.1 61 22 109/71 (84) 95 Nasal Cannula 2.0 08/06/16 22:27 60 98 30 08/06/16 20:00 Nasal Cannula 2.0 08/06/16 19:43 36.5 64 22 118/78 (91) 100 Nasal Cannula 2.0 08/06/16 19:20 60 18 98 Nasal Cannula 2.0 08/06/16 16:00 98 Nasal Cannula 2.0 08/06/16 16:00 36.5 63 18 94/64 (74) 98 Nasal Cannula 2.0 08/06/16 14:10 64 18 95 Nasal Cannula 2.0 08/06/16 12:00 36.4 64 22 94/62 (73) 97 Nasal Cannula 2.0 08/06/16 12:00 92 Nasal Cannula 2.0 Laboratory Results: Last 24 Hours Test 08/06/16 16:26 08/06/16 21:00 08/07/16 03:25 08/07/16 06:25 Bedside Glucose 82 mg/dl 88 mg/dl Urine Color DK YELLOW Urine Appearance CLOUDY Urine pH 7.0 Urine Specific [place] 1.025 Urine Protein NEG Urine Glucose (UA) NEG Urine Ketones NEG Urine Occult Blood NEG Urine Nitrite NEG Urine Bilirubin NEG Urine Urobilinogen NEG Urine Leukocyte Esterase TRACE Urine WBC (Auto) 1-5 /hpf Urine RBC (Auto) 0-4 /hpf Urine Hyaline Casts (Auto) 1-5 /lpf Urine Epithelial Cells (Auto) 5-10 /lpf Urine Bacteria (Auto) NEG White Blood Count 15.15 K/uL Red Blood Count 4.08 M/uL Hemoglobin 11.9 g/dL Hematocrit 38.6 % Mean Corpuscular Volume 94.6 fL Mean Corpuscular Hemoglobin 29.2 pg Mean Corpuscular Hemoglobin Concent 30.8 g/dl Platelet Count 203 K/uL Mean Platelet Volume 9.5 fL Neutrophils (%) (Auto) 88.6 % Lymphocytes (%) (Auto) 4.3 % Monocytes (%) (Auto) 5.5 % Eosinophils (%) (Auto) 1.3 % Basophils (%) (Auto) 0.0 % Neutrophils # (Auto) 13.44 K/uL Lymphocytes # (Auto) 0.65 K/uL Monocytes # (Auto) 0.83 K/uL Eosinophils # (Auto) 0.19 K/uL Basophils # (Auto) 0.00 K/uL RDW Standard Deviation 42.3 fL RDW Coefficient of Variation 12.3 % Immature Granulocyte % (Auto) 0.3 % Immature Granulocyte # (Auto) 0.04 K/uL Sodium Level 129 mmol/L Potassium Level 4.3 mmol/L Chloride Level 84 mmol/L Carbon Dioxide Level 45 mmol/L Anion Gap 0.0 mmol/L Blood Urea Nitrogen 14 mg/dl Creatinine 0.35 mg/dl Est Creatinine Clear Calc Drug Dose 168.7 ml/min Estimated GFR () > 150.0 Estimated GFR (Non- 135.4 BUN/Creatinine Ratio 38.7 Random Glucose 64 mg/dl Test 08/07/16 06:44 08/07/16 07:19 Bedside Glucose 67 mg/dl 87 mg/dl
[2016-08-07] MEDS: RIVAROXABAN 10 MG TAB PO SCH (17:12)
--- NOTE | 2016-08-07 21:23 | Progress Note ---
Medicine Progress Note Date & Time of Visit: Aug 07, 2016 at 14:40 . Subjective Generalized weakness. No fever. Cough and dyspnea improved. No chest pain. No nausea, vomiting. Multiple bowel movements since starting laxatives 2 days ago. Voiding without difficulty, utilizing condom catheter. visiting. . Objective Last 8 Hrs Date Time Temp Pulse Resp B/P (MAP) Pulse Ox O2 Delivery O2 Flow Rate FiO2 08/07/16 14:21 68 18 96 Nasal Cannula 2.0 08/07/16 12:10 Nasal Cannula 2.0 08/07/16 11:26 36.4 91 20 104/68 (80) 99 Nasal Cannula 2.0 08/07/16 08:16 35.8 62 18 119/80 (93) 100 Nasal Cannula 2.0 08/07/16 08:10 Nasal Cannula 2.0 08/07/16 07:46 63 18 96 Nasal Cannula 2.0 Physical Exam: General- no distress ENT- oral thrush improved Neck- + JVD Lungs- distant breath sounds; few rales left base Heart- distant heart sounds, regular Abdomen- + BS, soft, nontender Extremities- edema both upper extremities, L > R slightly improved Neuro- alert . Laboratory Results: Last 24 Hours Test 08/06/16 16:26 08/06/16 21:00 08/07/16 03:25 08/07/16 06:25 Bedside Glucose 82 mg/dl 88 mg/dl Urine Color DK YELLOW Urine Appearance CLOUDY Urine pH 7.0 Urine Specific [place] 1.025 Urine Protein NEG Urine Glucose (UA) NEG Urine Ketones NEG Urine Occult Blood NEG Urine Nitrite NEG Urine Bilirubin NEG Urine Urobilinogen NEG Urine Leukocyte Esterase TRACE Urine WBC (Auto) 1-5 /hpf Urine RBC (Auto) 0-4 /hpf Urine Hyaline Casts (Auto) 1-5 /lpf Urine Epithelial Cells (Auto) 5-10 /lpf Urine Bacteria (Auto) NEG White Blood Count 15.15 K/uL Red Blood Count 4.08 M/uL Hemoglobin 11.9 g/dL Hematocrit 38.6 % Mean Corpuscular Volume 94.6 fL Mean Corpuscular Hemoglobin 29.2 pg Mean Corpuscular Hemoglobin Concent 30.8 g/dl Platelet Count 203 K/uL Mean Platelet Volume 9.5 fL Neutrophils (%) (Auto) 88.6 % Lymphocytes (%) (Auto) 4.3 % Monocytes (%) (Auto) 5.5 % Eosinophils (%) (Auto) 1.3 % Basophils (%) (Auto) 0.0 % Neutrophils # (Auto) 13.44 K/uL Lymphocytes # (Auto) 0.65 K/uL Monocytes # (Auto) 0.83 K/uL Eosinophils # (Auto) 0.19 K/uL Basophils # (Auto) 0.00 K/uL RDW Standard Deviation 42.3 fL RDW Coefficient of Variation 12.3 % Immature Granulocyte % (Auto) 0.3 % Immature Granulocyte # (Auto) 0.04 K/uL Sodium Level 129 mmol/L Potassium Level 4.3 mmol/L Chloride Level 84 mmol/L Carbon Dioxide Level 45 mmol/L Anion Gap 0.0 mmol/L Blood Urea Nitrogen 14 mg/dl Creatinine 0.35 mg/dl Est Creatinine Clear Calc Drug Dose 168.7 ml/min Estimated GFR () > 150.0 Estimated GFR (Non- 135.4 BUN/Creatinine Ratio 38.7 Random Glucose 64 mg/dl Calcium Level 9.0 mg/dl Test 08/07/16 06:44 08/07/16 07:01 08/07/16 07:19 Bedside Glucose 67 mg/dl 65 mg/dl 87 mg/dl Assessment & Plan ACUTE ON CHRONIC HYPOXIC + HYPERCAPNIC RESPIRATORY FAILURE Dyspneic and tachypneic at time of admission, requiring > baseline O2. ABG demonstrated on 4 L demonstrated pO2 97, pCO2 103, HCO3 46, pH 7.27. Required BiPAP for ventilatory support. Acute respiratory failure secondary to COPD + pneumonia. Respiratory status improved. Now oxygenating well on 2 L NC. Nocturnal BiPAP as tolerated. PNEUMONIA Afebrile. Oxygenating well on 2 L NC. Treated with piperacillin / tazobactam + doxycycline to complete 7 day course of therapy. Will need follow-up chest x-ray in 4-6 weeks. EXACERBATION COPD Severe O2 + steroid dependent COPD. Exacerbation secondary to pneumonia. Received IV steroids and nebs with improvement. Taper to usual maintenance dose of prednisone. HISTORY LEFT VENTRICULAR SYSTOLIC HEART FAILURE LVEF as low as 35-40% in past, currently normal. Compensated. No MARTI or ARB at this time due to relatively low BP's. Chest x-ray on 08/06 did not show any pulmonary edema. Diurese PRN. PAROXYSMAL ATRIAL FIB History of paroxysmal AF, managed with sotalol and rivaroxaban. Developed recurrent atrial fibrillation evening of 08/04. Lytes were OK. Levalbuterol dose decreased. Cardiology consulted. Converted to normal sinus rhythm (after administration of bisacodyl suppository) . Received digoxin. Remains in normal sinus rhythm. Continue sotalol and rivaroxaban. LEUKOCYTOSIS White count on admission was 19,450. The next morning he was 36,800 after receiving IV steroids. White count fell to 13,170 by 08/04. WBC 08/06 was 24,370. Afebrile and clinically improved. Chest x-ray 08/06 showed improving left lower lobe infiltrate, no effusions. UA 08/07 showed only 1-5 WBCs, trace leukocyte esterase, no bacteria. Several bowel movements after laxatives for constipation; doubt C. difficile. WBC today = 15,150. Follow. STEROID-INDUCED HYPERGLYCEMIA Improved as steroids tapered. Fasting blood sugar this morning 65. Discontinue Lantus. VTE PROPHYLAXIS Continue rivaroxaban. DISPOSITION To be determined. Functional status is poor and spouse concerned that she will be unable to care for him at home at this time. May need skilled care or rehabilitation. Consult Case Management. Family Medicine follow-up with Dr. Callaway. visiting this afternoon and given update. . Current Inpatient Medications: Current Inpatient Medications Medications (Trade) Dose Ordered Sig/Khoi Route Start Time Stop Time Status Last Admin Dose Admin Acetaminophen (Tylenol Tab) 650 mg Q4H PRN PO 07/30/16 22:45 08/29/16 22:44 Nitroglycerin (Nitrostat Tab) 0.4 mg UD PRN SL 07/30/16 22:45 08/29/16 22:44 Piperacillin Sod/ Tazobactam Sod (Consult) 1 ea UD PRN N/A 07/31/16 09:00 08/30/16 08:59 Ondansetron HCl (Zofran Inj) 4 mg Q6H PRN IV 07/30/16 22:45 08/29/16 22:44 Tramadol HCl (Ultram Tab) 25 mg Q6H PRN PO 07/30/16 22:45 08/29/16 22:44 08/06/16 08:01 25 MG Multivitamins (Multivitamin Tab) 1 tab DAILY PO 07/31/16 09:00 08/30/16 08:59 08/07/16 07:49 1 TAB Rivaroxaban (Xarelto Tab) 20 mg QDD PO 07/31/16 16:45 08/30/16 16:44 08/06/16 16:23 20 MG Simvastatin (Zocor Tab) 40 mg HS PO 07/31/16 21:00 08/30/16 20:59 08/06/16 21:07 40 MG Sotalol HCl (Betapace Tab) 80 mg BID PO 07/31/16 09:00 08/30/16 08:59 08/07/16 07:53 80 MG Menthol (Nice Thai) 1 thai PRN PRN PO 07/31/16 10:30 08/30/16 10:29 Metoprolol Tartrate (Lopressor Iv) 2.5 mg Q6 PRN IV 07/31/16 18:30 08/30/16 18:29 08/05/16 13:43 2.5 MG Morphine Sulfate (MoRPHine SULFATE INJ) 1 mg Q3H PRN IV 07/31/16 18:30 08/14/16 18:29 Salmeterol Xinafoate/ Fluticasone (Advair Diskus 500/50 Inh) 1 puff BID INH 08/03/16 21:00 09/02/16 20:59 08/07/16 07:48 1 PUFF Tiotropium [place] (Spiriva Handihaler Inhaler) 1 puff QAM INH 08/04/16 09:00 09/03/16 08:59 08/07/16 07:48 1 PUFF Prednisone (PredniSONE TAB) 20 mg Taper DAILY PO 08/05/16 09:00 09/07/16 08:59 08/07/16 07:49 20 MG Doxycycline Hyclate (Vibramycin Cap) 100 mg BID PO 08/05/16 21:00 08/07/16 23:59 08/07/16 07:49 100 MG Levalbuterol (Xopenex 0.63 Mg/ 3 Ml Neb) 0.63 mg Q6R INH 08/05/16 15:00 09/04/16 14:59 08/07/16 14:21 0.63 MG Levalbuterol (Xopenex 0.63 Mg/ 3 Ml Neb) 0.63 mg Q4H PRN INH 08/05/16 09:30 09/04/16 09:29 Nystatin (Mycostatin Susp) 5 ml QID PO 08/06/16 17:00 08/16/16 16:59 08/07/16 12:37 5 ML Polyethylene (Miralax Powder Packet) 17 gm BID PO 08/06/16 21:00 09/05/16 20:59 08/06/16 21:08 17 GM
[2016-08-07] MEDS: SIMVASTATIN 40 MG TAB PO SCH (21:52)
[2016-08-08] VITALS (12 sets, daily range): BP systolic 98–115; BP diastolic 69–79; PULSE 56–78; TEMP 36.3–36.9; O2SAT 90–100
[2016-08-08] MEDS: LEVALBUTEROL 0.63MG/3 ML NEB INH SCH ×4 (02:16→19:17)
[2016-08-08 06:19] LABS: HEMATOCRIT 39.3 % (42-52); MEAN CELL VOLUME 92.3 fL (80-100); MEAN CORPUSCULAR HEMOGLOBIN 28.4 pg (25-34); MEAN CORPUSCULAR HGB CONC 30.8 g/dl (32-36); MEAN PLATELET VOLUME 9.5 fL (7.4-10.4); PLATELET COUNT 227 K/uL (130-400); RED BLOOD COUNT 4.26 M/uL (4.7-6.1); WHITE BLOOD COUNT 13.44 K/uL (4.8-10.8)
[2016-08-08 07:03] LABS: BUN/CREATININE RATIO 32.1 (10-20); CALCIUM 9.5 mg/dl (8.5-10.1); CREATININE 0.42 mg/dl (0.60-1.40); MAGNESIUM 2.1 mg/dl (1.8-2.4); POTASSIUM 4.2 mmol/L (3.5-5.1)
[2016-08-08] MEDS: TIOTROPIUM BROMIDE 5 PUFF/90 MCG INH INH SCH (07:47)
[2016-08-08] MEDS: FLUTICASONE/SALMETEROL (ADVAIR) 500/50 INH 14 PUFF INH SCH ×2 (07:47→20:42)
[2016-08-08] MEDS: POLYETHYLENE (MIRALAX) 17 GM PACK PO SCH ×2 (07:47→20:44)
[2016-08-08] MEDS: MULTIVITAMIN TAB PO SCH (07:47)
[2016-08-08] MEDS: NYSTATIN SUSP 500,000 U/5 ML UDC PO SCH ×4 (07:47→20:42)
[2016-08-08] MEDS: SOTALOL HCL 80 MG TAB PO SCH ×2 (07:49→20:42)
--- NOTE | 2016-08-08 11:08 | Pulmonology Progress Note ---
Pulmonary Progress Note Date of Service Aug 08, 2016. Attending Dr. Vazquez Subjective Very concerned today about details of his post discharge care. Generally feeling improved. Agreeable to outpatient BiPAP Objective 61-yo male admitted to [facility] with acute on chronic hypoxic hypercarbic respiratory failure and LLL pneumonia with inpatient course complicated by a.fib with RVR. Prior records were reviewed. PMHx includes: O2-steroid dependent end-stage pulmonary emphysema /COPD ([employer]: Tudorza, pro-air, azithromycin, Advair, prednisone), CHF, non-ischemic cardiomyopathy s/p [facility] [employer] AICD, h/o CVA, h/o p.afib + AC, HLD. Former tobacco. Echocardiogram 07/31/16: RVSP: 50-60mmHg, mild dilation of RV, trace TR, E- 60% Video Swallow 08/01/16: multiple episodes of silent aspiration with thin liquid barium Chest X-ray: 08/04/16: Advanced emphysema. Patchy consolidation left lung base with small left pleural effusion. Today: - VS: 98-99% - 2LPM, inconsistent BiPAP use - HD stable - 20mg prednisone (10BID), Spiriva + Advair 500/50 - Xarelto: 20mg Physical Exam: Constitutional: Chronically ill appearing cachectic male lying in hospital bed. No acute distress. HEENT: No oral lesions or exudate Respiratory: Increased AP chest diameter. BS diminished throughout. No wheeze. CV: Diminished S1, S2 with difficulty assessing rhythm. Warm and perfused peripherally GI: Soft, active bowel sounds Integumentary: Ecchymosis - left wrist - improving MSK/Extremities: moving and developed symmetrically. Bilateral UE edema Left > right. No peripheral edema of the LEs. Neurologic: Alert, answers questions appropriately. Assessment & Plan 61 yo male patient with end stage COPD admitted with acute on chronic respiratory failure and LLL pneumonia: - He is clinically improved and tolerating tapering steroid and continuation of Advair 500/50 + Spiriva - Stable for discharge from a pulmonary perspective - Will need outpatient CXR in 5-6 weeks as well as ambulatory O2 assessment prior to discharge - Continue Spiriva and Advair with PRN levalbuterol in the setting of a.fib with RVR - Arrangements for home BiPAP - again importance of 4-hours nightly used emphasize - he states he would be agreeable with a more comfortable mask. - Patient and case reviewed and plan agreed with. Data Medications: Current Inpatient Medications Medications (Trade) Dose Ordered Sig/Khoi Route Start Time Stop Time Status Last Admin Dose Admin Acetaminophen (Tylenol Tab) 650 mg Q4H PRN PO 07/30/16 22:45 08/29/16 22:44 Nitroglycerin (Nitrostat Tab) 0.4 mg UD PRN SL 07/30/16 22:45 08/29/16 22:44 Piperacillin Sod/ Tazobactam Sod (Consult) 1 ea UD PRN N/A 07/31/16 09:00 08/30/16 08:59 Ondansetron HCl (Zofran Inj) 4 mg Q6H PRN IV 07/30/16 22:45 08/29/16 22:44 Tramadol HCl (Ultram Tab) 25 mg Q6H PRN PO 07/30/16 22:45 08/29/16 22:44 08/06/16 08:01 25 MG Multivitamins (Multivitamin Tab) 1 tab DAILY PO 07/31/16 09:00 08/30/16 08:59 08/08/16 07:47 1 TAB Rivaroxaban (Xarelto Tab) 20 mg QDD PO 07/31/16 16:45 08/30/16 16:44 08/07/16 17:12 20 MG Simvastatin (Zocor Tab) 40 mg HS PO 07/31/16 21:00 08/30/16 20:59 08/07/16 21:52 40 MG Sotalol HCl (Betapace Tab) 80 mg BID PO 07/31/16 09:00 08/30/16 08:59 08/08/16 07:49 80 MG Menthol (Nice Estefany) 1 estefany PRN PRN PO 07/31/16 10:30 08/30/16 10:29 Metoprolol Tartrate (Lopressor Iv) 2.5 mg Q6 PRN IV 07/31/16 18:30 08/30/16 18:29 08/05/16 13:43 2.5 MG Morphine Sulfate (MoRPHine SULFATE INJ) 1 mg Q3H PRN IV 07/31/16 18:30 08/14/16 18:29 Salmeterol Xinafoate/ Fluticasone (Advair Diskus 500/50 Inh) 1 puff BID INH 08/03/16 21:00 09/02/16 20:59 08/08/16 07:47 1 PUFF Tiotropium [place] (Spiriva Handihaler Inhaler) 1 puff QAM INH 08/04/16 09:00 09/03/16 08:59 08/08/16 07:47 1 PUFF Prednisone (PredniSONE TAB) 10 mg Taper BID PO 08/05/16 09:00 09/07/16 08:59 08/08/16 07:47 10 MG Levalbuterol (Xopenex 0.63 Mg/ 3 Ml Neb) 0.63 mg Q6R INH 08/05/16 15:00 09/04/16 14:59 08/08/16 07:14 0.63 MG Levalbuterol (Xopenex 0.63 Mg/ 3 Ml Neb) 0.63 mg Q4H PRN INH 08/05/16 09:30 09/04/16 09:29 Nystatin (Mycostatin Susp) 5 ml QID PO 08/06/16 17:00 08/16/16 16:59 08/08/16 07:47 5 ML Polyethylene (Miralax Powder Packet) 17 gm BID PO 08/06/16 21:00 09/05/16 20:59 08/06/16 21:08 17 GM Vital Signs: Date Time Temp Pulse Resp B/P (MAP) Pulse Ox O2 Delivery O2 Flow Rate FiO2 08/08/16 08:00 Nasal Cannula 2.0 08/08/16 07:54 36.9 66 22 114/74 (87) 98 Nasal Cannula 2.0 08/08/16 07:14 61 18 98 Nasal Cannula 2.0 08/08/16 04:01 36.3 60 18 104/74 (84) 99 Nasal Cannula 2.0 08/08/16 04:00 Nasal Cannula 2.0 08/08/16 02:16 78 18 98 Nasal Cannula 2.0 08/07/16 23:59 Nasal Cannula 2.0 08/07/16 23:52 36.5 60 18 107/77 (87) 100 Nasal Cannula 2.0 08/07/16 20:00 98 Room Air 2.0 08/07/16 19:35 63 18 98 Nasal Cannula 2.0 08/07/16 18:58 36.4 62 17 116/78 (91) 100 Nasal Cannula 2.0 08/07/16 16:29 36.8 63 20 110/73 (85) 100 08/07/16 16:00 96 Nasal Cannula 2.0 08/07/16 14:21 68 18 96 Nasal Cannula 2.0 08/07/16 12:10 Nasal Cannula 2.0 08/07/16 11:26 36.4 91 20 104/68 (80) 99 Nasal Cannula 2.0 Laboratory Results: Last 24 Hours Test 08/07/16 11:27 08/07/16 16:27 08/07/16 20:43 08/08/16 02:30 Bedside Glucose 110 mg/dl 82 mg/dl 92 mg/dl 74 mg/dl Test 08/08/16 05:23 08/08/16 05:50 08/08/16 06:55 Bedside Glucose 79 mg/dl 115 mg/dl White Blood Count 13.44 K/uL Red Blood Count 4.26 M/uL Hemoglobin 12.1 g/dL Hematocrit 39.3 % Mean Corpuscular Volume 92.3 fL Mean Corpuscular Hemoglobin 28.4 pg Mean Corpuscular Hemoglobin Concent 30.8 g/dl RDW Standard Deviation 41.2 fL RDW Coefficient of Variation 12.3 % Platelet Count 227 K/uL Mean Platelet Volume 9.5 fL Sodium Level 127 mmol/L Potassium Level 4.2 mmol/L Chloride Level 82 mmol/L Carbon Dioxide Level 43 mmol/L Anion Gap 2.0 mmol/L Blood Urea Nitrogen 14 mg/dl Creatinine 0.42 mg/dl Est Creatinine Clear Calc Drug Dose 141.9 ml/min Estimated GFR () 145.6 Estimated GFR (Non- 125.7 BUN/Creatinine Ratio 32.1 Random Glucose 102 mg/dl Calcium Level 9.5 mg/dl Magnesium Level 2.1 mg/dl
--- NOTE | 2016-08-08 13:29 | Cardiology Follow-Up ---
Subjective Subjective Date of Service: Aug 08, 2016. Pt evaluation today including: conversation w/ patient, physical exam, chart review, lab review, review of studies, review of inpatient medication list Additional Details: Pt seen and examined, states that sob and palpitations both improving. Denies cp , lightheadedness or dizziness. Doesn't feel strong enough to go home. Tele reviewed: sinus rhythm with occasional atrial pacing Problem List Medical Problems: (1) Change in mental status Status: Acute (2) Pneumonia Status: Acute (3) Respiratory acidosis Status: Acute Review of Systems Respiratory: + shortness of breath, No see HPI, No cough, No sputum, No wheezing, No dyspnea on exertion, No dyspnea at rest, No hemoptysis, No problem reported Cardiac: + palpitations, No see HPI, No chest pain, No orthopnea, No PND, No edema, No claudication, No problem reported Objective Vital Signs Last Vital Signs Documentation Date Time Temp Pulse Resp B/P (MAP) Pulse Ox O2 Delivery O2 Flow Rate FiO2 08/08/16 12:17 36.6 60 20 115/79 (91) 100 Nasal Cannula 2.0 08/06/16 22:27 30 Physical Exam: General Appearance: WD/WN, no apparent distress Eyes: bilateral eyes normal inspection, bilateral eyes PERRL, bilateral eyes EOMI ENT: normal ENT inspection, hearing grossly normal, pharynx normal Neck: supple, no adenopathy, thyroid normal, no JVD, no carotid bruits, trachea midline Respiratory/Chest: chest non-tender, no respiratory distress, no accessory muscle use, + rhonchi Cardiovascular: regular rate, rhythm, + pertinent finding (regular but distant , unable to appreciate murmurs, rubs or gallops) Abdomen: normal bowel sounds, non tender, soft, no organomegaly, no pulsatile mass Extremities: normal inspection, no pedal edema, no calf tenderness Neurologic/Psychiatric: principal android 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 paroxysmal atrial fibrillation no further sustained runs to be expected in the setting of pneumonia and copd exacerbation received dig load on 08/05, rates now stable in 60's,will hold off further dig for now cont sotalol, doxycycline not a known agent that would prolong the QT follow daily EKG's cont Xarelto anticoagulation ok to d/c tele or from hospital from cardiac standpoint
--- NOTE | 2016-08-08 15:12 | Progress Note ---
Medicine Progress Note Date & Time of Visit: Aug 08, 2016 at ~ 15:00 . Subjective No fever. No chest pain. Occasional nonproductive cough. Dyspnea improved. No nausea or vomiting. Moved bowels yesterday, but not yet today. Voiding without difficulty. . Objective Last 8 Hrs Date Time Temp Pulse Resp B/P (MAP) Pulse Ox O2 Delivery O2 Flow Rate FiO2 08/08/16 14:00 56 20 90 Nasal Cannula 2.0 08/08/16 12:17 36.6 60 20 115/79 (91) 100 Nasal Cannula 2.0 08/08/16 12:10 Nasal Cannula 2.0 08/08/16 08:00 Nasal Cannula 2.0 08/08/16 07:54 36.9 66 22 114/74 (87) 98 Nasal Cannula 2.0 08/08/16 07:14 61 18 98 Nasal Cannula 2.0 Physical Exam: General- no distress ENT- oral thrush improved Neck- + JVD Lungs- distant breath sounds; diffuse mild wheezing Heart- distant heart sounds, RRR Abdomen- + BS, soft, nontender Extremities- upper extremity edema improved Neuro- alert . Laboratory Results: Last 24 Hours Test 08/07/16 16:27 08/07/16 20:43 08/08/16 02:30 08/08/16 05:23 Bedside Glucose 82 mg/dl 92 mg/dl 74 mg/dl 79 mg/dl Test 08/08/16 05:50 08/08/16 06:55 08/08/16 11:19 White Blood Count 13.44 K/uL Red Blood Count 4.26 M/uL Hemoglobin 12.1 g/dL Hematocrit 39.3 % Mean Corpuscular Volume 92.3 fL Mean Corpuscular Hemoglobin 28.4 pg Mean Corpuscular Hemoglobin Concent 30.8 g/dl RDW Standard Deviation 41.2 fL RDW Coefficient of Variation 12.3 % Platelet Count 227 K/uL Mean Platelet Volume 9.5 fL Sodium Level 127 mmol/L Potassium Level 4.2 mmol/L Chloride Level 82 mmol/L Carbon Dioxide Level 43 mmol/L Anion Gap 2.0 mmol/L Blood Urea Nitrogen 14 mg/dl Creatinine 0.42 mg/dl Est Creatinine Clear Calc Drug Dose 141.9 ml/min Estimated GFR () 145.6 Estimated GFR (Non- 125.7 BUN/Creatinine Ratio 32.1 Random Glucose 102 mg/dl Calcium Level 9.5 mg/dl Magnesium Level 2.1 mg/dl Bedside Glucose 115 mg/dl 90 mg/dl Date/Time Source Procedure Growth Status 08/08/16 00:00 Sputum Expectorated Sputum Gram Stain - Final Resulted 08/08/16 00:00 Sputum Expectorated Sputum Sputum Culture Pending Resulted Assessment & Plan ACUTE ON CHRONIC HYPOXIC + HYPERCAPNIC RESPIRATORY FAILURE Dyspneic and tachypneic at time of admission, requiring > baseline O2. ABG demonstrated on 4 L demonstrated pO2 97, pCO2 103, HCO3 46, pH 7.27. Required BiPAP for ventilatory support. Acute respiratory failure secondary to COPD + pneumonia. Respiratory status improved. Now oxygenating well on 2 L NC. Nocturnal BiPAP as tolerated. PNEUMONIA Afebrile. Oxygenating well on 2 L NC. Treated with piperacillin / tazobactam + doxycycline to complete 7 day course of therapy. Will need follow-up chest x-ray in 4-6 weeks. EXACERBATION COPD Severe O2 + steroid dependent COPD. Exacerbation secondary to pneumonia. Received IV steroids and nebs with improvement. Taper to usual maintenance dose of prednisone; current prednisone dose = 10 mg BID. HISTORY LEFT VENTRICULAR SYSTOLIC HEART FAILURE LVEF as low as 35-40% in past, currently normal. Compensated. No MARTI or ARB at this time due to relatively low BP's. Chest x-ray on 08/06 did not show any pulmonary edema. Diurese PRN. PAROXYSMAL ATRIAL FIB History of paroxysmal AF, managed with sotalol and rivaroxaban. Developed recurrent atrial fibrillation evening of 08/04. Lytes were OK. Levalbuterol dose decreased. Cardiology consulted. Converted to normal sinus rhythm (after administration of bisacodyl suppository) . Received digoxin. Remains in normal sinus rhythm. Continue sotalol and rivaroxaban. LEUKOCYTOSIS White count on admission was 19,450. The next morning he was 36,800 after receiving IV steroids. White count fell to 13,170 by 08/04. WBC 08/06 was 24,370. Afebrile and clinically improved. Chest x-ray 08/06 showed improving left lower lobe infiltrate, no effusions. UA 08/07 showed only 1-5 WBCs, trace leukocyte esterase, no bacteria. Several bowel movements after laxatives for constipation; doubt C. difficile. WBC today = 13,440. Follow. STEROID-INDUCED HYPERGLYCEMIA Improved as steroids tapered. Fasting blood sugar this morning 65. Discontinued Lantus. VTE PROPHYLAXIS Continue rivaroxaban. DISPOSITION Functional status is poor and spouse concerned that she will be unable to care for him at home at this time. May need skilled care or rehabilitation. Case Management consulted. Family Medicine follow-up with Dr. Callawya. . Current Inpatient Medications: Current Inpatient Medications Medications (Trade) Dose Ordered Sig/Khoi Route Start Time Stop Time Status Last Admin Dose Admin Acetaminophen (Tylenol Tab) 650 mg Q4H PRN PO 07/30/16 22:45 08/29/16 22:44 Nitroglycerin (Nitrostat Tab) 0.4 mg UD PRN SL 07/30/16 22:45 08/29/16 22:44 Piperacillin Sod/ Tazobactam Sod (Consult) 1 ea UD PRN N/A 07/31/16 09:00 08/30/16 08:59 Ondansetron HCl (Zofran Inj) 4 mg Q6H PRN IV 07/30/16 22:45 08/29/16 22:44 Tramadol HCl (Ultram Tab) 25 mg Q6H PRN PO 07/30/16 22:45 08/29/16 22:44 08/06/16 08:01 25 MG Multivitamins (Multivitamin Tab) 1 tab DAILY PO 07/31/16 09:00 08/30/16 08:59 08/08/16 07:47 1 TAB Rivaroxaban (Xarelto Tab) 20 mg QDD PO 07/31/16 16:45 08/30/16 16:44 08/07/16 17:12 20 MG Simvastatin (Zocor Tab) 40 mg HS PO 07/31/16 21:00 08/30/16 20:59 08/07/16 21:52 40 MG Sotalol HCl (Betapace Tab) 80 mg BID PO 07/31/16 09:00 08/30/16 08:59 08/08/16 07:49 80 MG Menthol (Nice Thai) 1 thai PRN PRN PO 07/31/16 10:30 08/30/16 10:29 Metoprolol Tartrate (Lopressor Iv) 2.5 mg Q6 PRN IV 07/31/16 18:30 08/30/16 18:29 08/05/16 13:43 2.5 MG Morphine Sulfate (MoRPHine SULFATE INJ) 1 mg Q3H PRN IV 07/31/16 18:30 08/14/16 18:29 Salmeterol Xinafoate/ Fluticasone (Advair Diskus 500/50 Inh) 1 puff BID INH 08/03/16 21:00 09/02/16 20:59 08/08/16 07:47 1 PUFF Tiotropium [place] (Spiriva Handihaler Inhaler) 1 puff QAM INH 08/04/16 09:00 09/03/16 08:59 08/08/16 07:47 1 PUFF Prednisone (PredniSONE TAB) 10 mg Taper BID PO 08/05/16 09:00 09/07/16 08:59 08/08/16 07:47 10 MG Levalbuterol (Xopenex 0.63 Mg/ 3 Ml Neb) 0.63 mg Q6R INH 08/05/16 15:00 09/04/16 14:59 08/08/16 14:00 0.63 MG Levalbuterol (Xopenex 0.63 Mg/ 3 Ml Neb) 0.63 mg Q4H PRN INH 08/05/16 09:30 09/04/16 09:29 Nystatin (Mycostatin Susp) 5 ml QID PO 08/06/16 17:00 08/16/16 16:59 08/08/16 07:47 5 ML Polyethylene (Miralax Powder Packet) 17 gm BID PO 08/06/16 21:00 09/05/16 20:59 08/06/16 21:08 17 GM
[2016-08-08] MEDS ORDERED: BISACODYL 5 MG TABEC PO ONE (15:15)
[2016-08-08] MEDS: RIVAROXABAN 10 MG TAB PO SCH (17:37)
[2016-08-08] MEDS: SIMVASTATIN 40 MG TAB PO SCH (20:43)
[2016-08-08] MEDS: DOCUSATE SODIUM/SENNA 50/8.6MG TAB PO SCH (20:44)
[2016-08-08] MEDS ORDERED: BISACODYL 10 MG SUPP PR PRN (22:00)
[2016-08-09] VITALS (11 sets, daily range): BP systolic 100–128; BP diastolic 65–82; PULSE 58–66; TEMP 36–36.4; O2SAT 91–100
[2016-08-09] MEDS: LEVALBUTEROL 0.63MG/3 ML NEB INH SCH ×5 (01:30→23:45)
[2016-08-09 06:08] LABS: CREATININE 0.35 mg/dl (0.60-1.40)
[2016-08-09] MEDS: POLYETHYLENE (MIRALAX) 17 GM PACK PO SCH ×2 (07:48→21:00)
[2016-08-09] MEDS: FLUTICASONE/SALMETEROL (ADVAIR) 500/50 INH 14 PUFF INH SCH ×2 (07:48→21:00)
[2016-08-09] MEDS: MULTIVITAMIN TAB PO SCH (07:48)
[2016-08-09] MEDS: NYSTATIN SUSP 500,000 U/5 ML UDC PO SCH ×4 (07:49→21:01)
[2016-08-09] MEDS: SOTALOL HCL 80 MG TAB PO SCH ×2 (07:49→21:01)
[2016-08-09] MEDS: DOCUSATE SODIUM/SENNA 50/8.6MG TAB PO SCH ×2 (07:49→21:01)
--- NOTE | 2016-08-09 08:48 | Pulmonology Progress Note ---
Pulmonary Progress Note Date of Service Aug 09, 2016. Attending Dr. Vazquez Objective 61-yo male admitted to [facility] with acute on chronic hypoxic hypercarbic respiratory failure, evidence of aspiration, and LLL pneumonia with inpatient course complicated by a.fib with RVR. Assessment & Plan 61 yo male patient with end stage COPD admitted with acute on chronic respiratory failure and LLL pneumonia: - He is clinically improved and stable on tapering steroids, home inhalers and O2 needs - As prior arrange for outpatient follow-up of COPD, BiPAP coverage and LLL with CXR (5-6 weeks) - Patient awaiting placement at this time - thank you for this consultation. Pulmonary will sign off but are happy to see him again PRN. Patient and case reviewed and plan agreed with. Data Medications: Current Inpatient Medications Medications (Trade) Dose Ordered Sig/Khoi Route Start Time Stop Time Status Last Admin Dose Admin Acetaminophen (Tylenol Tab) 650 mg Q4H PRN PO 07/30/16 22:45 08/29/16 22:44 Nitroglycerin (Nitrostat Tab) 0.4 mg UD PRN SL 07/30/16 22:45 08/29/16 22:44 Ondansetron HCl (Zofran Inj) 4 mg Q6H PRN IV 07/30/16 22:45 08/29/16 22:44 Tramadol HCl (Ultram Tab) 25 mg Q6H PRN PO 07/30/16 22:45 08/29/16 22:44 08/06/16 08:01 25 MG Multivitamins (Multivitamin Tab) 1 tab DAILY PO 07/31/16 09:00 08/30/16 08:59 08/09/16 07:48 1 TAB Rivaroxaban (Xarelto Tab) 20 mg QDD PO 07/31/16 16:45 08/30/16 16:44 08/08/16 17:37 20 MG Simvastatin (Zocor Tab) 40 mg HS PO 07/31/16 21:00 08/30/16 20:59 08/08/16 20:43 40 MG Sotalol HCl (Betapace Tab) 80 mg BID PO 07/31/16 09:00 08/30/16 08:59 08/09/16 07:49 80 MG Menthol (Nice Estefany) 1 estefany PRN PRN PO 07/31/16 10:30 08/30/16 10:29 Metoprolol Tartrate (Lopressor Iv) 2.5 mg Q6 PRN IV 07/31/16 18:30 08/30/16 18:29 08/05/16 13:43 2.5 MG Morphine Sulfate (MoRPHine SULFATE INJ) 1 mg Q3H PRN IV 07/31/16 18:30 08/14/16 18:29 Salmeterol Xinafoate/ Fluticasone (Advair Diskus 500/50 Inh) 1 puff BID INH 08/03/16 21:00 09/02/16 20:59 08/09/16 07:48 1 PUFF Tiotropium [place] (Spiriva Handihaler Inhaler) 1 puff QAM INH 08/04/16 09:00 09/03/16 08:59 08/08/16 07:47 1 PUFF Prednisone (PredniSONE TAB) 10 mg Taper BID PO 08/05/16 09:00 09/07/16 08:59 08/09/16 07:48 10 MG Levalbuterol (Xopenex 0.63 Mg/ 3 Ml Neb) 0.63 mg Q6R INH 08/05/16 15:00 09/04/16 14:59 08/09/16 07:24 0.63 MG Levalbuterol (Xopenex 0.63 Mg/ 3 Ml Neb) 0.63 mg Q4H PRN INH 08/05/16 09:30 09/04/16 09:29 Nystatin (Mycostatin Susp) 5 ml QID PO 08/06/16 17:00 08/16/16 16:59 08/09/16 07:49 5 ML Polyethylene (Miralax Powder Packet) 17 gm BID PO 08/06/16 21:00 09/05/16 20:59 08/09/16 07:48 17 GM Senna/Docusate Sodium (Senokot S Tab) 1 tab BID PO 08/08/16 21:00 09/07/16 20:59 08/09/16 07:49 1 TAB Bisacodyl (Dulcolax Supp) 10 mg DAILY PRN DC 08/08/16 22:00 09/07/16 21:59 Vital Signs: Date Time Temp Pulse Resp B/P (MAP) Pulse Ox O2 Delivery O2 Flow Rate FiO2 08/09/16 07:24 64 16 91 Nasal Cannula 2.0 08/09/16 07:05 36.4 60 19 115/73 (87) 100 Nasal Cannula 2.0 08/09/16 04:14 36.3 60 16 102/65 (77) 98 Nasal Cannula 2.0 08/09/16 04:00 Nasal Cannula 2.0 08/09/16 01:30 60 16 96 Nasal Cannula 2.0 08/08/16 23:59 Nasal Cannula 2.0 08/08/16 23:55 36.4 60 18 108/69 (82) 98 Nasal Cannula 2.0 08/08/16 20:00 100 Nasal Cannula 2.0 08/08/16 20:00 100 Nasal Cannula 2.0 08/08/16 19:17 58 20 93 Nasal Cannula 2.0 08/08/16 19:11 36.5 67 16 98/70 (79) 97 Nasal Cannula 2.0 08/08/16 16:00 100 Nasal Cannula 2.0 08/08/16 15:36 36.5 63 16 114/75 (88) 100 Nasal Cannula 2.0 08/08/16 14:00 56 20 90 Nasal Cannula 2.0 08/08/16 12:17 36.6 60 20 115/79 (91) 100 Nasal Cannula 2.0 08/08/16 12:10 Nasal Cannula 2.0 Laboratory Results: Last 24 Hours Test 08/08/16 11:19 08/08/16 22:50 08/09/16 05:12 Bedside Glucose 90 mg/dl 93 mg/dl Creatinine 0.35 mg/dl Est Creatinine Clear Calc Drug Dose 161.8 ml/min Estimated GFR () > 150.0 Estimated GFR (Non- 135.4
[2016-08-09] MEDS: TIOTROPIUM BROMIDE 5 PUFF/90 MCG INH INH SCH (09:10)
--- NOTE | 2016-08-09 14:15 | Cardiology Follow-Up ---
Subjective Subjective Date of Service: Aug 09, 2016. Pt evaluation today including: conversation w/ patient, physical exam, chart review, lab review, review of studies, review of inpatient medication list Additional Details: Pt seen and examined, states that he'd doing well. Some sob overnight. Denies cp , palpitations, lightheadedness or dizziness. Tele reviewed: sinus rhythm with occasional pacing Problem List Medical Problems: (1) Change in mental status Status: Acute (2) Pneumonia Status: Acute (3) Respiratory acidosis Status: Acute Review of Systems Respiratory: + shortness of breath, No see HPI, No cough, No sputum, No wheezing, No dyspnea on exertion, No dyspnea at rest, No hemoptysis, No problem reported Cardiac: + palpitations, No see HPI, No chest pain, No orthopnea, No PND, No edema, No claudication, No problem reported Objective Vital Signs Last Vital Signs Documentation Date Time Temp Pulse Resp B/P (MAP) Pulse Ox O2 Delivery O2 Flow Rate FiO2 08/09/16 12:00 Nasal Cannula 08/09/16 11:37 36.1 58 18 115/82 (93) 98 2.0 08/06/16 22:27 30 Physical Exam: General Appearance: WD/WN, no apparent distress Eyes: bilateral eyes normal inspection, bilateral eyes PERRL, bilateral eyes EOMI ENT: normal ENT inspection, hearing grossly normal, pharynx normal Neck: supple, no adenopathy, thyroid normal, no JVD, no carotid bruits, trachea midline Respiratory/Chest: chest non-tender, no respiratory distress, no accessory muscle use, + rhonchi Cardiovascular: regular rate, rhythm, + pertinent finding (regular but distant , unable to appreciate murmurs, rubs or gallops) Abdomen: normal bowel sounds, non tender, soft, no organomegaly, no pulsatile mass Extremities: normal inspection, no pedal edema, no calf tenderness Neurologic/Psychiatric: 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 paroxysmal atrial fibrillation no further sustained runs to be expected in the setting of pneumonia and copd exacerbation received dig load on 08/05, rates now stable in 60's,will hold off further dig for now cont sotalol, doxycycline not a known agent that would prolong the QT follow daily EKG's cont Xarelto anticoagulation ok to d/c tele or from hospital from cardiac standpoint for placement on 08/11
[2016-08-09] MEDS: RIVAROXABAN 10 MG TAB PO SCH (16:43)
[2016-08-09] MEDS: SIMVASTATIN 40 MG TAB PO SCH (21:02)
[2016-08-10] VITALS (9 sets, daily range): BP systolic 90–115; BP diastolic 57–79; PULSE 60–70; TEMP 36.2–36.6; O2SAT 95–100
[2016-08-10] MEDS ORDERED: SODIUM CHLORIDE 0.65% NA SOLN 45 ML (OCEAN) ONE (00:15)
--- NOTE | 2016-08-10 04:50 | Progress Note ---
Medicine Progress Note Date & Time of Visit: Aug 09, 2016 at 09:30 . Subjective No fever. No chest pain. Respiratory status stable. No nausea or vomiting. No BM for about 2 days. . Objective Last 8 Hrs Date Time Temp Pulse Resp B/P (MAP) Pulse Ox O2 Delivery O2 Flow Rate FiO2 08/09/16 12:00 Nasal Cannula 08/09/16 11:37 36.1 58 18 115/82 (93) 98 Nasal Cannula 2.0 08/09/16 08:00 Nasal Cannula 08/09/16 07:24 64 16 91 Nasal Cannula 2.0 08/09/16 07:05 36.4 60 19 115/73 (87) 100 Nasal Cannula 2.0 Physical Exam: General- no distress ENT- Neck- + JVD Lungs- distant breath sounds; diffuse mild wheezing Heart- distant heart sounds, RRR Abdomen- + BS, soft, nontender Extremities- upper extremity edema Neuro- alert . Laboratory Results: Last 24 Hours Test 08/08/16 22:50 08/09/16 05:12 08/09/16 11:16 Bedside Glucose 93 mg/dl 101 mg/dl Creatinine 0.35 mg/dl Est Creatinine Clear Calc Drug Dose 161.8 ml/min Estimated GFR () > 150.0 Estimated GFR (Non- 135.4 Assessment & Plan ACUTE ON CHRONIC HYPOXIC + HYPERCAPNIC RESPIRATORY FAILURE Dyspneic and tachypneic at time of admission, requiring > baseline O2. ABG demonstrated on 4 L demonstrated pO2 97, pCO2 103, HCO3 46, pH 7.27. Required BiPAP for ventilatory support. Acute respiratory failure secondary to COPD + pneumonia. Respiratory status improved. Now oxygenating well on 2 L NC. Nocturnal BiPAP as tolerated. PNEUMONIA Afebrile. Oxygenating well on 2 L NC. Treated with piperacillin / tazobactam + doxycycline to complete 7 day course of therapy. Will need follow-up chest x-ray in 4-6 weeks. EXACERBATION COPD Severe O2 + steroid dependent COPD. Exacerbation secondary to pneumonia. Received IV steroids and nebs with improvement. Taper to usual maintenance dose of prednisone; current prednisone dose = 10 mg BID. HISTORY LEFT VENTRICULAR SYSTOLIC HEART FAILURE LVEF as low as 35-40% in past, currently normal. Compensated. No MARTI or ARB at this time due to relatively low BP's. Chest x-ray on 08/06 did not show any pulmonary edema. Diurese PRN. PAROXYSMAL ATRIAL FIB History of paroxysmal AF, managed with sotalol and rivaroxaban. Developed recurrent atrial fibrillation evening of 08/04. Lytes were OK. Levalbuterol dose decreased. Cardiology consulted. Converted to normal sinus rhythm (after administration of bisacodyl suppository) . Received digoxin. Remains in normal sinus rhythm. Continue sotalol and rivaroxaban. LEUKOCYTOSIS White count on admission was 19,450. The next morning he was 36,800 after receiving IV steroids. White count fell to 13,170 by 08/04. WBC 08/06 was 24,370. Afebrile and clinically improved. Chest x-ray 08/06 showed improving left lower lobe infiltrate, no effusions. UA 08/07 showed only 1-5 WBCs, trace leukocyte esterase, no bacteria. Several bowel movements after laxatives for constipation; doubt C. difficile. WBC 08/08 = 13,440. Follow. STEROID-INDUCED HYPERGLYCEMIA Improved as steroids tapered. Fasting blood sugar this morning 65. Discontinued Lantus. VTE PROPHYLAXIS Continue rivaroxaban. DISPOSITION Functional status is poor and spouse concerned that she will be unable to care for him at home at this time. May need skilled care or rehabilitation. Case Management consulted. Family Medicine follow-up with Dr. Callaway. . Current Inpatient Medications: Current Inpatient Medications Medications (Trade) Dose Ordered Sig/Khoi Route Start Time Stop Time Status Last Admin Dose Admin Acetaminophen (Tylenol Tab) 650 mg Q4H PRN PO 07/30/16 22:45 08/29/16 22:44 Nitroglycerin (Nitrostat Tab) 0.4 mg UD PRN SL 07/30/16 22:45 08/29/16 22:44 Ondansetron HCl (Zofran Inj) 4 mg Q6H PRN IV 07/30/16 22:45 08/29/16 22:44 Tramadol HCl (Ultram Tab) 25 mg Q6H PRN PO 07/30/16 22:45 08/29/16 22:44 08/06/16 08:01 25 MG Multivitamins (Multivitamin Tab) 1 tab DAILY PO 07/31/16 09:00 08/30/16 08:59 08/09/16 07:48 1 TAB Rivaroxaban (Xarelto Tab) 20 mg QDD PO 07/31/16 16:45 08/30/16 16:44 08/08/16 17:37 20 MG Simvastatin (Zocor Tab) 40 mg HS PO 07/31/16 21:00 08/30/16 20:59 08/08/16 20:43 40 MG Sotalol HCl (Betapace Tab) 80 mg BID PO 07/31/16 09:00 08/30/16 08:59 08/09/16 07:49 80 MG Menthol (Nice Htai) 1 thai PRN PRN PO 07/31/16 10:30 08/30/16 10:29 Metoprolol Tartrate (Lopressor Iv) 2.5 mg Q6 PRN IV 07/31/16 18:30 08/30/16 18:29 08/05/16 13:43 2.5 MG Morphine Sulfate (MoRPHine SULFATE INJ) 1 mg Q3H PRN IV 07/31/16 18:30 08/14/16 18:29 Salmeterol Xinafoate/ Fluticasone (Advair Diskus 500/50 Inh) 1 puff BID INH 08/03/16 21:00 09/02/16 20:59 08/09/16 07:48 1 PUFF Tiotropium [place] (Spiriva Handihaler Inhaler) 1 puff QAM INH 08/04/16 09:00 09/03/16 08:59 08/09/16 09:10 1 PUFF Prednisone (PredniSONE TAB) 10 mg Taper BID PO 08/05/16 09:00 09/07/16 08:59 08/09/16 07:48 10 MG Levalbuterol (Xopenex 0.63 Mg/ 3 Ml Neb) 0.63 mg Q6R INH 08/05/16 15:00 09/04/16 14:59 08/09/16 07:24 0.63 MG Levalbuterol (Xopenex 0.63 Mg/ 3 Ml Neb) 0.63 mg Q4H PRN INH 08/05/16 09:30 09/04/16 09:29 Nystatin (Mycostatin Susp) 5 ml QID PO 08/06/16 17:00 08/16/16 16:59 08/09/16 12:55 5 ML Polyethylene (Miralax Powder Packet) 17 gm BID PO 6/26/17 21:00 09/05/16 20:59 08/09/16 07:48 17 GM Senna/Docusate Sodium (Senokot S Tab) 1 tab BID PO 08/08/16 21:00 09/07/16 20:59 08/09/16 07:49 1 TAB Bisacodyl (Dulcolax Supp) 10 mg DAILY PRN [place] 08/08/16 22:00 09/07/16 21:59
[2016-08-10] MEDS: LEVALBUTEROL 0.63MG/3 ML NEB INH SCH ×3 (07:04→19:28)
[2016-08-10] MEDS: FLUTICASONE/SALMETEROL (ADVAIR) 500/50 INH 14 PUFF INH SCH ×2 (07:51→19:53)
[2016-08-10] MEDS: TIOTROPIUM BROMIDE 5 PUFF/90 MCG INH INH SCH (07:52)
[2016-08-10] MEDS: MULTIVITAMIN TAB PO SCH (07:53)
[2016-08-10] MEDS: DOCUSATE SODIUM/SENNA 50/8.6MG TAB PO SCH ×2 (07:53→19:56)
[2016-08-10] MEDS: NYSTATIN SUSP 500,000 U/5 ML UDC PO SCH ×4 (07:53→19:54)
[2016-08-10] MEDS: SOTALOL HCL 80 MG TAB PO SCH ×2 (07:53→19:55)
[2016-08-10] MEDS: POLYETHYLENE (MIRALAX) 17 GM PACK PO SCH ×2 (07:54→19:56)
[2016-08-10] MEDS ORDERED: SORBITOL 70% 30ML UDC PO PRN (11:45)
[2016-08-10] MEDS ORDERED: SORBITOL 70% 30ML UDC PO ONE (12:00)
[2016-08-10] MEDS: RIVAROXABAN 10 MG TAB PO SCH (17:01)
[2016-08-10] MEDS: SIMVASTATIN 40 MG TAB PO SCH (19:55)
--- NOTE | 2016-08-10 20:29 | Progress Note ---
Medicine Progress Note Date & Time of Visit: Aug 10, 2016 at ~ 11:30 . Subjective No bowel movement for a few days. Declined MiraLAX and Dulcolax. Requesting rectal exam and follow-up of oral CT contrast. No fever. No chest pain. Respiratory status stable. . Objective Last 8 Hrs Date Time Temp Pulse Resp B/P (MAP) Pulse Ox O2 Delivery O2 Flow Rate FiO2 08/10/16 20:00 Nasal Cannula 2.0 08/10/16 19:28 70 16 97 Nasal Cannula 2.0 08/10/16 16:00 Nasal Cannula 2.0 08/10/16 15:24 36.4 64 20 93/67 (76) 100 Nasal Cannula 2.0 08/10/16 14:18 62 16 99 Nasal Cannula 2.0 Physical Exam: General- no distress Neck- + JVD Lungs- distant breath sounds; diffuse mild wheezing Heart- distant heart sounds, RRR Abdomen- + BS, soft, nontender Rectal- external hemorrhoid; small amount of stool in rectal vault; prostate slightly enlarged, no masses Extremities- upper extremity edema improved; trace pretibial edema, no calf tenderness Neuro- alert . Assessment & Plan ACUTE ON CHRONIC HYPOXIC + HYPERCAPNIC RESPIRATORY FAILURE Dyspneic and tachypneic at time of admission, requiring > baseline O2. ABG demonstrated on 4 L demonstrated pO2 97, pCO2 103, HCO3 46, pH 7.27. Required BiPAP for ventilatory support. Acute respiratory failure secondary to COPD + pneumonia. Respiratory status improved. Now oxygenating well on 2 L NC. Nocturnal BiPAP recommended, but patient cannot tolerate it and declines. PNEUMONIA Afebrile. Oxygenating well on 2 L NC. Treated with piperacillin / tazobactam + doxycycline to complete 7 day course of therapy. Will need follow-up chest x-ray in 4-6 weeks. EXACERBATION COPD Severe O2 + steroid dependent COPD. Exacerbation secondary to pneumonia. Received IV steroids and nebs with improvement. Taper to usual maintenance dose of prednisone; current prednisone dose = 10 mg BID. HISTORY LEFT VENTRICULAR SYSTOLIC HEART FAILURE LVEF as low as 35-40% in past, currently normal. Compensated. No MARTI or ARB at this time due to relatively low BP's. Chest x-ray on 08/06 did not show any pulmonary edema. Diurese PRN. PAROXYSMAL ATRIAL FIB History of paroxysmal AF, managed with sotalol and rivaroxaban. Developed recurrent atrial fibrillation evening of 08/04. Lytes were OK. Levalbuterol dose decreased. Cardiology consulted. Converted to normal sinus rhythm (after administration of bisacodyl suppository) . Received digoxin. Remains in normal sinus rhythm. Continue sotalol and rivaroxaban. LEUKOCYTOSIS White count on admission was 19,450. The next morning he was 36,800 after receiving IV steroids. White count fell to 13,170 by 08/04. WBC 08/06 was 24,370. Afebrile and clinically improved. Chest x-ray 08/06 showed improving left lower lobe infiltrate, no effusions. UA 08/07 showed only 1-5 WBCs, trace leukocyte esterase, no bacteria. Several bowel movements after laxatives for constipation; doubt C. difficile. WBC 08/08 = 13,440. Follow. STEROID-INDUCED HYPERGLYCEMIA Improved as steroids tapered. Discontinued Lantus. CONSTIPATION Last recorded bowel movement 08/07. Patient refusing MiraLAX and Dulcolax suppository. Try sorbitol. VTE PROPHYLAXIS Continue rivaroxaban. DISPOSITION Functional status is poor and spouse concerned that she will be unable to care for him at home at this time. May need skilled care or rehabilitation. Case Management consulted. Family Medicine follow-up with Dr. Callaway. . Current Inpatient Medications: Current Inpatient Medications Medications (Trade) Dose Ordered Sig/Khoi Route Start Time Stop Time Status Last Admin Dose Admin Acetaminophen (Tylenol Tab) 650 mg Q4H PRN PO 07/30/16 22:45 08/29/16 22:44 Nitroglycerin (Nitrostat Tab) 0.4 mg UD PRN SL 07/30/16 22:45 08/29/16 22:44 Ondansetron HCl (Zofran Inj) 4 mg Q6H PRN IV 07/30/16 22:45 08/29/16 22:44 Tramadol HCl (Ultram Tab) 25 mg Q6H PRN PO 07/30/16 22:45 08/29/16 22:44 08/06/16 08:01 25 MG Multivitamins (Multivitamin Tab) 1 tab DAILY PO 07/31/16 09:00 08/30/16 08:59 08/10/16 07:53 1 TAB Rivaroxaban (Xarelto Tab) 20 mg QDD PO 07/31/16 16:45 08/30/16 16:44 08/10/16 17:01 20 MG Simvastatin (Zocor Tab) 40 mg HS PO 07/31/16 21:00 08/30/16 20:59 08/10/16 19:55 40 MG Sotalol HCl (Betapace Tab) 80 mg BID PO 07/31/16 09:00 08/30/16 08:59 08/10/16 19:55 80 MG Menthol (Nice Thai) 1 thai PRN PRN PO 07/31/16 10:30 08/30/16 10:29 Metoprolol Tartrate (Lopressor Iv) 2.5 mg Q6 PRN IV 07/31/16 18:30 08/30/16 18:29 08/05/16 13:43 2.5 MG Morphine Sulfate (MoRPHine SULFATE INJ) 1 mg Q3H PRN IV 07/31/16 18:30 08/14/16 18:29 Salmeterol Xinafoate/ Fluticasone (Advair Diskus 500/50 Inh) 1 puff BID INH 08/03/16 21:00 09/02/16 20:59 08/10/16 19:53 1 PUFF Tiotropium [place] (Spiriva Handihaler Inhaler) 1 puff QAM INH 08/04/16 09:00 09/03/16 08:59 08/10/16 07:52 1 PUFF Prednisone (PredniSONE TAB) 10 mg Taper BID PO 08/05/16 09:00 09/07/16 08:59 08/10/16 19:55 10 MG Levalbuterol (Xopenex 0.63 Mg/ 3 Ml Neb) 0.63 mg Q6R INH 08/05/16 15:00 09/04/16 14:59 08/10/16 19:28 0.63 MG Levalbuterol (Xopenex 0.63 Mg/ 3 Ml Neb) 0.63 mg Q4H PRN INH 08/05/16 09:30 09/04/16 09:29 Nystatin (Mycostatin Susp) 5 ml QID PO 08/06/16 17:00 08/16/16 16:59 08/10/16 19:54 5 ML Polyethylene (Miralax Powder Packet) 17 gm BID PO 08/06/16 21:00 09/05/16 20:59 08/10/16 07:54 17 GM Senna/Docusate Sodium (Senokot S Tab) 1 tab BID PO 08/08/16 21:00 09/07/16 20:59 08/10/16 07:53 1 TAB Bisacodyl (Dulcolax Supp) 10 mg DAILY PRN [place] 08/08/16 22:00 09/07/16 21:59 Sorbitol (Sorbitol 70% Soln) 30 ml BID PRN PO 08/10/16 11:45 09/09/16 11:44
[2016-08-11] VITALS (10 sets, daily range): BP systolic 93–111; BP diastolic 64–76; PULSE 58–72; TEMP 36.4–36.5; O2SAT 93–100
[2016-08-11] MEDS: LEVALBUTEROL 0.63MG/3 ML NEB INH SCH ×3 (02:30→14:14)
[2016-08-11 07:24] LABS: HEMATOCRIT 34.7 % (42-52); MEAN CORPUSCULAR HEMOGLOBIN 30.8 pg (25-34); MEAN CORPUSCULAR HGB CONC 33.4 g/dl (32-36); MEAN PLATELET VOLUME 8.9 fL (7.4-10.4); PLATELET COUNT 223 K/uL (130-400); RED BLOOD COUNT 3.77 M/uL (4.7-6.1); WHITE BLOOD COUNT 9.93 K/uL (4.8-10.8)
[2016-08-11] MEDS: DOCUSATE SODIUM/SENNA 50/8.6MG TAB PO SCH (07:54)
[2016-08-11] MEDS: POLYETHYLENE (MIRALAX) 17 GM PACK PO SCH (07:54)
[2016-08-11] MEDS: TIOTROPIUM BROMIDE 5 PUFF/90 MCG INH INH SCH (07:55)
[2016-08-11] MEDS: MULTIVITAMIN TAB PO SCH (07:58)
[2016-08-11] MEDS: NYSTATIN SUSP 500,000 U/5 ML UDC PO SCH ×2 (07:58→12:34)
[2016-08-11] MEDS: SOTALOL HCL 80 MG TAB PO SCH (07:58)
[2016-08-11 08:19] LABS: BUN/CREATININE RATIO 18.8 (10-20); CREATININE 0.42 mg/dl (0.60-1.40); POTASSIUM 4.2 mmol/L (3.5-5.1)
[2016-08-11] MEDS: FLUTICASONE/SALMETEROL (ADVAIR) 500/50 INH 14 PUFF INH SCH (09:03)
--- NOTE | 2016-08-11 15:25 | Progress Note ---
Medicine Progress Note Date & Time of Visit: Aug 11, 2016 at 14:45 . Subjective Doing well. No fever. Oral thrush improved. Rare cough. Mild dyspnea on exertion. No chest pain. No nausea or vomiting. Sorbitol yesterday effective for constipation. . Objective Last 8 Hrs Date Time Temp Pulse Resp B/P (MAP) Pulse Ox O2 Delivery O2 Flow Rate FiO2 08/11/16 14:14 62 16 95 Nasal Cannula 2.0 08/11/16 11:49 Nasal Cannula 2.0 08/11/16 11:41 36.5 64 21 111/76 (88) 100 Nasal Cannula 2.0 08/11/16 09:00 Room Air 08/11/16 07:28 58 16 93 Nasal Cannula 2.0 08/11/16 07:22 36.5 60 26 107/65 (79) 99 Nasal Cannula 6.0 Physical Exam: General- no distress ENT- oral thrush improved Neck- + JVD Lungs- distant breath sounds; diffuse mild wheezing Heart- distant heart sounds, RRR Abdomen- + BS, soft, nontender Extremities- upper extremity edema improved; trace pretibial edema, no calf tenderness Neuro- alert . Laboratory Results: Last 24 Hours Test 08/11/16 07:13 White Blood Count 9.93 K/uL Red Blood Count 3.77 M/uL Hemoglobin 11.6 g/dL Hematocrit 34.7 % Mean Corpuscular Volume 92.0 fL Mean Corpuscular Hemoglobin 30.8 pg Mean Corpuscular Hemoglobin Concent 33.4 g/dl RDW Standard Deviation 42.4 fL RDW Coefficient of Variation 12.5 % Platelet Count 223 K/uL Mean Platelet Volume 8.9 fL Sodium Level 127 mmol/L Potassium Level 4.2 mmol/L Chloride Level 85 mmol/L Carbon Dioxide Level 41 mmol/L Anion Gap 1.0 mmol/L Blood Urea Nitrogen 8 mg/dl Creatinine 0.42 mg/dl Est Creatinine Clear Calc Drug Dose 135.3 ml/min Estimated GFR () 145.6 Estimated GFR (Non- 125.7 BUN/Creatinine Ratio 18.8 Random Glucose 86 mg/dl Calcium Level 9.0 mg/dl Assessment & Plan ACUTE ON CHRONIC HYPOXIC + HYPERCAPNIC RESPIRATORY FAILURE Dyspneic and tachypneic at time of admission, requiring > baseline O2. ABG demonstrated on 4 L demonstrated pO2 97, pCO2 103, HCO3 46, pH 7.27. Required BiPAP for ventilatory support. Acute respiratory failure secondary to COPD + pneumonia. Respiratory status improved. Now oxygenating well on 2 L NC. Nocturnal BiPAP recommended, but patient cannot tolerate it and it was discontinued. Continue oxygen supplementation with O2 2 LPM via NC. PNEUMONIA Admission chest x-ray demonstrated LLL infiltrate. Blood cultures were negative. Sputum culture grew moderate normal [place]. Treated with piperacillin / tazobactam + doxycycline to complete 7 day course of therapy. Afebrile. Oxygenating well on 2 L NC. Will need follow-up chest x-ray in 4-6 weeks. EXACERBATION COPD Severe O2 + steroid dependent COPD. Exacerbation secondary to pneumonia. Received IV steroids and nebs with improvement. Tapered to usual maintenance dose of prednisone 10 mg daily. Continue Advair, Duonebs, albuterol MDI. HISTORY LEFT VENTRICULAR SYSTOLIC HEART FAILURE LVEF as low as 35-40% in past, currently normal. Compensated. No MARTI or ARB at this time due to relatively low BP's. Chest x-ray on 08/06 did not show any pulmonary edema. Diurese PRN. PAROXYSMAL ATRIAL FIB History of paroxysmal AF, managed with sotalol and rivaroxaban. Developed recurrent atrial fibrillation evening of 08/04. Lytes were OK. Levalbuterol dose decreased. Cardiology consulted. Converted to normal sinus rhythm (after administration of bisacodyl suppository) . Received a few doses of digoxin. Remains in normal sinus rhythm. Continue sotalol and rivaroxaban. LEUKOCYTOSIS White count on admission was 19,450. The next morning he was 36,800 after receiving IV steroids. White count fell to 13,170 by 08/04. WBC 08/06 was 24,370. Afebrile and clinically improved. Chest x-ray 08/06 showed improving left lower lobe infiltrate, no effusions. UA 08/07 showed only 1-5 WBCs, trace leukocyte esterase, no bacteria. Several bowel movements after laxatives for constipation; doubt C. difficile. WBC today = 9930. STEROID-INDUCED HYPERGLYCEMIA Improved as steroids tapered. Discontinued Lantus. CONSTIPATION Last recorded bowel movement 08/07. Patient refusing MiraLAX and Dulcolax suppository. Had good results with sorbitol; will continue PRN. Try daily Metamucil. URINARY FREQUENCY Rectal exam revealed slightly enlarged prostate, no masses appreciated. Try tamsulosin HS. VTE PROPHYLAXIS Continue rivaroxaban. DISPOSITION Functional status is poor and spouse concerned that she will be unable to care for him at home at this time. Case Management consulted. Arrangements being made for transfer to [facility] for skilled care. Family Medicine follow-up with Dr. Callaway. . Current Inpatient Medications: Current Inpatient Medications Medications (Trade) Dose Ordered Sig/Khoi Route Start Time Stop Time Status Last Admin Dose Admin Acetaminophen (Tylenol Tab) 650 mg Q4H PRN PO 07/30/16 22:45 08/29/16 22:44 Nitroglycerin (Nitrostat Tab) 0.4 mg UD PRN SL 07/30/16 22:45 08/29/16 22:44 Ondansetron HCl (Zofran Inj) 4 mg Q6H PRN IV 07/30/16 22:45 08/29/16 22:44 Tramadol HCl (Ultram Tab) 25 mg Q6H PRN PO 07/30/16 22:45 08/29/16 22:44 08/06/16 08:01 25 MG Multivitamins (Multivitamin Tab) 1 tab DAILY PO 07/31/16 09:00 08/30/16 08:59 08/11/16 07:58 1 TAB Rivaroxaban (Xarelto Tab) 20 mg QDD PO 07/31/16 16:45 08/30/16 16:44 08/10/16 17:01 20 MG Simvastatin (Zocor Tab) 40 mg HS PO 07/31/16 21:00 08/30/16 20:59 08/10/16 19:55 40 MG Sotalol HCl (Betapace Tab) 80 mg BID PO 07/31/16 09:00 08/30/16 08:59 08/10/16 19:55 80 MG Menthol (Nice Estefany) 1 estefany PRN PRN PO 07/31/16 10:30 08/30/16 10:29 Metoprolol Tartrate (Lopressor Iv) 2.5 mg Q6 PRN IV 07/31/16 18:30 08/30/16 18:29 08/05/16 13:43 2.5 MG Morphine Sulfate (MoRPHine SULFATE INJ) 1 mg Q3H PRN IV 07/31/16 18:30 08/14/16 18:29 Salmeterol Xinafoate/ Fluticasone (Advair Diskus 500/50 Inh) 1 puff BID INH 08/03/16 21:00 09/02/16 20:59 08/11/16 09:03 1 PUFF Tiotropium [place] (Spiriva Handihaler Inhaler) 1 puff QAM INH 08/04/16 09:00 09/03/16 08:59 08/11/16 07:55 1 PUFF Prednisone (PredniSONE TAB) 10 mg Taper BID PO 08/05/16 09:00 09/07/16 08:59 08/11/16 07:58 10 MG Levalbuterol (Xopenex 0.63 Mg/ 3 Ml Neb) 0.63 mg Q6R INH 08/05/16 15:00 09/04/16 14:59 08/11/16 14:14 0.63 MG Levalbuterol (Xopenex 0.63 Mg/ 3 Ml Neb) 0.63 mg Q4H PRN INH 08/05/16 09:30 09/04/16 09:29 Nystatin (Mycostatin Susp) 5 ml QID PO 08/06/16 17:00 08/16/16 16:59 08/11/16 12:34 5 ML Polyethylene (Miralax Powder Packet) 17 gm BID PO 08/06/16 21:00 09/05/16 20:59 08/10/16 07:54 17 GM Senna/Docusate Sodium (Senokot S Tab) 1 tab BID PO 08/08/16 21:00 09/07/16 20:59 08/10/16 07:53 1 TAB Bisacodyl (Dulcolax Supp) 10 mg DAILY PRN [place] 08/08/16 22:00 09/07/16 21:59 Sorbitol (Sorbitol 70% Soln) 30 ml BID PRN PO 08/10/16 11:45 09/09/16 11:44
--- NOTE | 2016-08-11 15:31 | Discharge Instructions ---
Discharge Instructions Date of Service Aug 11, 2016. Admission Reason for Admission: pneumonia, respiratory failure . Discharge Discharge Diagnosis / Problem: pneumonia, respiratory failure Discharge Goals Goal(s): Improve function, Increase independence, Improve disease control Activity Recommendations Activity Level: Assistance Required Therapies: Physical Therapy, Occupational Therapy . Additional Information Patient informed of condition: Yes Advance Directives: Yes DNR: Yes Level of Care: Skilled Communicable Disease: No Prognosis: Improving Oxygen at (LPM): 2 LPM Perez Catheter: No Instructions / Follow-Up Instructions / Follow-Up APPOINTMENTS: FAMILY MEDICINE Dr. Callaway Please arrange for follow-up at time of discharge from your facility. . Current Hospital Diet Patient's current hospital diet: AHA Diet (Heart Healthy), Low Potassium Diet ( 2g K) Discharge Diet Recommended Diet: AHA Diet (Heart Healthy) Liquid Consistency: Urs[place] Thick Pending Studies Studies pending at discharge: no Physician Orders On Transfer Special Precautions: fall precautions aspiration precautions Speech Therapy Discharge Instructions * Slippery mechanical soft diet and nectar thick liquids Aspiration precautions: patient should be seated FULLY upright during and for 30 minutes after meals. Take small bites and sips. Alternate solids and liquids. NO straws. . Additional Orders: Keep arms elevated on pillows. . Medical Emergencies . Who to Call and When: Medical Emergencies: If at any time you feel your situation is an emergency, please call 911 immediately. . Non-Emergent Contact Non-Emergency issues call your: Primary Care Provider, Luncheonette Manager, Hospital Doctor, Herbarium Worker . . "Provider Documentation" section prepared by Homero Carroll. . Core Measure Problem Core Measures: None
[2016-08-11] MEDS ORDERED: FLM4 PO (15:41)
[2016-08-11] MEDS ORDERED: NYSS5 PO (15:41)
[2016-08-11] MEDS ORDERED: [UNRECOGNIZED DRUG - CODE] PO (15:41)
[2016-08-11] MEDS ORDERED: ACET-1047 PO (15:41)
[2016-08-11] MEDS ORDERED: SENN8.6T7 PO (15:41)
--- NOTE | 2016-08-11 15:56 | Discharge Summary ---
Discharge Summary Date of Service Aug 11, 2016. Discharge Summary Admission Date: Jul 30, 2016 at 22:17 Discharge Date: Aug 11, 2016 Discharge Disposition: longterm facility ([facility]) Principal Diagnosis: acute on chronic hypoxic + hypercapnic respiratory failure LLL pneumonia exacerbation COPD . Secondary Diagnoses/Problems: Chronic and Resolved Medical Problems: (1) Cerebrovascular disease Permanent Comment: s/p stroke Status: Chronic (2) Chronic respiratory failure with hypoxia Status: Chronic (3) Chronic steroid use Status: Chronic (4) COPD (chronic obstructive pulmonary disease) Status: Chronic (5) Ebstein's anomaly Status: Chronic (6) Hypertension Status: Chronic (7) Implantation of cardiac pacemaker Status: Chronic (8) Nonischemic cardiomyopathy Status: Chronic (9) Paroxysmal atrial fibrillation Status: Chronic (10) Polyneuropathy Status: Chronic Surgical Problems: (1) Status post cardiac catheterization Status: Chronic (2) Status post cardiac pacemaker procedure Status: Chronic (3) Status post shoulder surgery Status: Chronic . Procedures: cardiac monitoring IV meds BiPAP CT head video swallow echo PT OT . Consultations: Pulmonary Medicine Cardiology . Pending Studies/Follow-Up: Please schedule f/u chest x-ray in 4-6 weeks Re: pneumonia. . Medication Reconciliation New Medications: Tamsulosin HCl (Tamsulosin HCl) 0.4 Mg Cap 0.4 MG PO HS for 30 Days New med. Please give Rx at time of DC from your facility if effective. Acetaminophen (Mapap) 325 Mg Tab 650 MG PO Q4H PRN for Pain or Fever for 30 Days, TAB Nystatin (Nystatin) 5 Ml Susp 5 ML PO QID PRN for thrush for 30 Days swish and swallow Sennosides-Docusate Sodium (Senokot S) 1 Tab Tab 1 TAB PO BID for 30 Days, TAB Sorbitol (Sorbitol) 30 Ml/Cup Soln 30 ML PO BID PRN for constipation for 30 Days Continued Medications: Aclidinium [place] (Tudorza Pressair) 400 Mcg/Act Aer 1 DOSE PO DIRECTED Albuterol (Proair Hfa) Aers 1-2 PUFFS INH QID PRN Azithromycin (Zithromax) 250 Mg Tab 250 MG PO, #4 TAB Fluticasone Prop/Salmeterol (Advair Diskus 500/50 60 Dose) 1 Ea Aerp 1 PUFF INH BID, INHALER Ipratropium-Albuterol (Duoneb) 3 Ml Nebu 1 TREATMENT INH QID, INHA Losartan Potassium (Cozaar) 25 Mg Tab 25 MG PO DAILY, TAB Multivitamin (Multivitamin) Tab 1 TAB PO DAILY, TAB Prednisone (Prednisone) 10 Mg Tab 10 MG PO DAILY, TAB Rivaroxaban (Xarelto) 20 Mg Tab 20 MG PO DAILY, TAB Simvastatin (Zocor) 40 Mg Tab 40 MG PO HS, TAB Sotalol Hcl (Betapace) 80 Mg Tab 80 MG PO BID, TAB Admission Information HPI (per Admitting provider): History was obtained from patient, family, and records. Limited hx obtained from px 2 to secondary to resp distress and some confusion. Medical history is significant for chronic respiratory failure secondary to steroid dependent COPD on home O2, chronic systolic heart failure 2 to non-ischemic cardiomyopathy (EF of 40% on 2010 TTE) sp ICD, history of CVA, PA-Fib on Xarelto, HTN, hyperlipidemia and past tobacco abuse, Ebstein's anomaly as per records, hx aspiration risk. Last night, the patient was noted by to worsening shortness of breath and worsening cough symptoms. Patient was more weak than usual this morning and confused. He was brought to the Emergency Room; given Zosyn, Solu-Medrol and breathing treatments for COPD exacerbation. Started on BiPAP. . Physical Exam (per Admitting): VITAL SIGNS: Blood pressure was noted to be 130/82, pulse rate 88, RR 32, temperature 36.4 and sats 97 on five liters. GENERAL: Noted to be in respiratory distress, somewhat disoriented and hard of hearing. SKIN: Pallor. HEENT: Pale palpebral conjunctivae. Dry mucosa. BIPAP mask NECK: No JVD. supple CHEST: Decreased BS, expiratory wheezes. HEART: Regular rate and rhythm. ABDOMEN: Some distention. NT RECTAL px refusing for now EXTREMITIES: Minimal LE edema. No tenderness. NEUROLOGIC: No gross focality except for old left lower extremity weakness. . Hospital Course ACUTE ON CHRONIC HYPOXIC + HYPERCAPNIC RESPIRATORY FAILURE Dyspneic and tachypneic at time of admission, requiring > baseline O2. ABG demonstrated on 4 L demonstrated pO2 97, pCO2 103, HCO3 46, pH 7.27. Required BiPAP for ventilatory support. Acute respiratory failure secondary to COPD + pneumonia. Respiratory status improved. Now oxygenating well on 2 L NC. Nocturnal BiPAP recommended, but patient cannot tolerate it and it was discontinued. Continue oxygen supplementation with O2 2 LPM via NC. PNEUMONIA Admission chest x-ray demonstrated LLL infiltrate. Blood cultures were negative. Sputum culture grew moderate normal [place]. Treated with piperacillin / tazobactam + doxycycline to complete 7 day course of therapy. Afebrile. Oxygenating well on 2 L NC. Will need follow-up chest x-ray in 4-6 weeks. EXACERBATION COPD Severe O2 + steroid dependent COPD. Exacerbation secondary to pneumonia. Received IV steroids and nebs with improvement. Tapered to usual maintenance dose of prednisone 10 mg daily. Continue Advair, Duonebs, albuterol MDI. ASPIRATION SUPPLY CHAIN PROJECT MANAGER consulted. Video swallow demonstrated multiple episodes of silent aspiration. Speech Therapy Discharge Instructions * Slippery mechanical soft diet and nectar thick liquids Aspiration precautions: patient should be seated FULLY upright during and for 30 minutes after meals. Take small bites and sips. Alternate solids and liquids. NO straws. HISTORY LEFT VENTRICULAR SYSTOLIC HEART FAILURE LVEF as low as 35-40% in past, currently normal. Compensated. No MARTI or ARB at this time due to relatively low BP's. Chest x-ray on 08/06 did not show any pulmonary edema. Diurese PRN. PAROXYSMAL ATRIAL FIB History of paroxysmal AF, managed with sotalol and rivaroxaban. Developed recurrent atrial fibrillation evening of 08/04. Lytes were OK. Levalbuterol dose decreased. Cardiology consulted. Converted to normal sinus rhythm (after administration of bisacodyl suppository) . Received a few doses of digoxin. Remains in normal sinus rhythm. Continue sotalol and rivaroxaban. CONSTIPATION Best results with sorbitol. Discharge on Senokot-S + sorbitol PRN. URINARY FREQUENCY Rectal exam revealed slightly enlarged prostate, no masses appreciated. Try tamsulosin HS. VTE PROPHYLAXIS Continue rivaroxaban. DISPOSITION Functional status is poor and spouse concerned that she will be unable to care for him at home at this time. Case Management consulted. Arrangements being made for transfer to [facility] for skilled care. Family Medicine follow-up with Dr. Callaway. . Total time spent on discharge = 45 min. This includes examination of the patient, discharge planning, medication reconciliation, and communication with other providers. . Discharge Instructions Date of Service Aug 11, 2016. Admission Reason for Admission: pneumonia, respiratory failure . Discharge Discharge Diagnosis / Problem: pneumonia, respiratory failure Discharge Goals Goal(s): Improve function, Increase independence, Improve disease control Activity Recommendations Activity Level: Assistance Required Therapies: Physical Therapy, Occupational Therapy . Additional Information Patient informed of condition: Yes Advance Directives: Yes DNR: Yes Level of Care: Skilled Communicable Disease: No Prognosis: Improving Oxygen at (LPM): 2 LPM Perez Catheter: No Instructions / Follow-Up Instructions / Follow-Up APPOINTMENTS: FAMILY MEDICINE Dr. Callaway Please arrange for follow-up at time of discharge from your facility. . Current Hospital Diet Patient's current hospital diet: AHA Diet (Heart Healthy), Low Potassium Diet ( 2g K) Discharge Diet Recommended Diet: AHA Diet (Heart Healthy) Liquid Consistency: [place] Thick Pending Studies Studies pending at discharge: no Physician Orders On Transfer Special Precautions: fall precautions aspiration precautions Speech Therapy Discharge Instructions * Slippery mechanical soft diet and nectar thick liquids Aspiration precautions: patient should be seated FULLY upright during and for 30 minutes after meals. Take small bites and sips. Alternate solids and liquids. NO straws. . Additional Orders: Keep arms elevated on pillows. . Medical Emergencies . Who to Call and When: Medical Emergencies: If at any time you feel your situation is an emergency, please call 911 immediately. . Non-Emergent Contact Non-Emergency issues call your: Primary Care Provider, Chemistry Technologist, Hospital Doctor, Assistant Production Manager . . "Provider Documentation" section prepared by Homero Carroll. . Core Measure Problem Core Measures: None Thank you for receiving this patient in transfer. Please call if you have any questions. Homero Carroll . Additional Copies To Fabian Callaway M.D.
[2016-08-11] MEDS: RIVAROXABAN 10 MG TAB PO SCH (16:39)
== END 2016-08-11 17:11 | DRG 207 ==
LOC: EDBD 17:51 → C.EDA 17:59 → CANRESERV 21:42 → ENRESERV 21:42 → CANRESERV 21:47 → EDBEDREQSVC 21:48 → C.2T 22:17 → CANBEDREQ 22:18 → ENRESERV 22:30
PROVIDERS: ADMIT Internal Medicine; ATTEND Hospitalist
PROC: 5A1955Z Respiratory Ventilation, Greater than 96 Consecutive Hours (ICD-10-PCS; principal; 2016-07-30)
DX: J96.21 Acute and chronic respiratory failure with hypoxia (principal); J18.9 Pneumonia, unspecified organism; E87.2 Acidosis; E46 Unspecified protein-calorie malnutrition; J44.1 Chronic obstructive pulmonary disease with (acute) exacerbation; Z66 Do not resuscitate; J96.22 Acute and chronic respiratory failure with hypercapnia; F17.200 Nicotine dependence, unspecified, uncomplicated; I10 Essential (primary) hypertension; I48.0 Paroxysmal atrial fibrillation; K59.00 Constipation, unspecified; R35.0 Frequency of micturition; Z95.0 Presence of cardiac pacemaker; Z79.52 Long term (current) use of systemic steroids; Z86.73 Personal history of transient ischemic attack (TIA), and cerebral infarction without residual deficits; Z99.81 Dependence on supplemental oxygen